=== PATIENT | male | born 1930 | race Caucasian/White ===

== ENCOUNTER → 2016-10-26 | Outpatient (CLI) | payer MEDICARE, BC ==
[2016-10-26 10:20] LABS: ABSOLUTE BASOPHILS # (AUTO) 0.1 10^3/uL (0.0-0.2); ABSOLUTE EOSINOPHILS # (AUTO) 0.3 10^3/uL (0.0-0.6); ABSOLUTE MONOCYTES (AUTO) 0.5 10^3/uL (0.1-1.4); ABSOLUTE NEUT (AUTO) 3.7 10^3/uL (1.7-8.2); BASOPHILS % (AUTO) 0.9 % (0-2); EOSINOPHILS % (AUTO) 4.7 % (0-6); HEMATOCRIT 38.6 % (37.9-51.0); HEMOGLOBIN 12.2 g/dL (13.5-17.0); LYMPHOCYTES % (AUTO) 17.8 % (13-45); MEAN CORPUSCULAR HEMOGLOBIN 29.8 pg (27.0-33.4); MEAN CORPUSCULAR HGB CONC 31.5 g/dL (32.0-36.0); MEAN CORPUSCULAR VOLUME 95 fl (80-97); RED BLOOD COUNT 4.09 10^6/uL (4.35-5.55); RED CELL DISTRIBUTION WIDTH 15.9 % (11.5-14.0); SEGMENTED NEUTROPHILS % (AUTO) 67.6 % (42-78); WHITE BLOOD COUNT 5.4 10^3/uL (4.0-10.5)
[2016-10-26 10:36] LABS: ALANINE AMINOTRANSFERASE 20 U/L (21-72); ALBUMIN 3.4 g/dL (3.5-5.0); ALKALINE PHOSPHATASE 81 U/L (38-126); ANION GAP 12 (5-19); ASPARTATE AMINO TRANSFERASE 15 U/L (17-59); BILIRUBIN,TOTAL 0.9 mg/dL (0.2-1.3); BLOOD UREA NITROGEN 24 mg/dL (7-20); CALCIUM 8.4 mg/dL (8.4-10.2); CARBON DIOXIDE 28 mmol/L (22-30); CHLORIDE 104 mmol/L (98-107); CHOLESTEROL 148.71 mg/dL (0-200); Direct HDL 61 mg/dL (>40); GLUCOSE 102 mg/dL (75-110); POTASSIUM 3.8 mmol/L (3.6-5.0); SODIUM 143.6 mmol/L (137-145); TOTAL PROTEIN 5.7 g/dL (6.3-8.2); TRIGLYCERIDES 45 mg/dL (<150)
[2016-10-26 10:47] LABS: DIRECT LDL 73 mg/dL (<100)
== END ==
LOC: LAB 09:47
PROVIDERS: ATTEND Internal Medicine
DX: E11.9 Type 2 diabetes mellitus without complications (principal); I25.10 Atherosclerotic heart disease of native coronary artery without angina pectoris; R53.83 Other fatigue; I63.9 Cerebral infarction, unspecified; E78.5 Hyperlipidemia, unspecified; I48.91 Unspecified atrial fibrillation
CPT/HCPCS: 36415; 80053; 80061; 83036; 84443; 85025

== ENCOUNTER 2017-11-06 19:53 | Inpatient (IN) | payer MEDICARE, BC ==
[2017-11-06] MEDS ORDERED: ASPIRIN 325 MG TABLET PO ONE (19:58)
[2017-11-06] MEDS ORDERED: FUROSEMIDE INJ/PF 40 MG/4 ML SDV IV ONE (19:58)
--- NOTE | 2017-11-06 20:00 | ER Document Report ---
ED General - General Chief Complaint: Shortness Of Breath Stated Complaint: BREATHING DIFFICULTY Time Seen by Provider: 11/06/17 19:58 Notes: 87-year-old male with CHF presents with acute shortness of breath, this happened about an hour ago, EMS found him hypertensive with rales and hypoxic to 80 on his home oxygen of 2 L. No increased leg edema no chest pain no recent illness cough or fever. Brought in by EMS on CPAP. History by . TRAVEL OUTSIDE OF THE [place] IN LAST 30 DAYS: No - Related Data Allergies/Adverse Reactions: cortisone [Cortisone] Allergy (Mild, Verified 10/14/15 07:57) sugar and B/P were elevated Past Medical History - General Information source: Relative - Social History Smoking Status: Unknown if Ever Smoked Family History: Reviewed & Not Pertinent - Past Medical History Cardiac Medical History: Reports: Hx Atrial Fibrillation, Hx Congestive Heart Failure, Hx Coronary Artery Disease, Hx Hypercholesterolemia, Hx Hypertension Pulmonary Medical History: Reports: Hx COPD, Hx Pneumonia Denies: Hx Tuberculosis Neurological Medical History: Reports: Hx Cerebrovascular Accident - weaker right side Endocrine Medical History: Reports: Hx Diabetes Mellitus Type 2 Musculoskeltal Medical History: Reports Hx Arthritis - osteoporosis Past Surgical History: Reports: Hx Appendectomy, Hx Genitourinary Surgery - prostate surgery, Hx Orthopedic Surgery - Back, right knee, Hx Urinary Tract Surgery - bladder stimulator-interstim - Immunizations Hx Diphtheria, Pertussis, Tetanus Vaccination: - unknown Hx Pneumococcal Vaccination: 01/29/14 Review of Systems - Review of Systems Notes: REVIEW OF SYSTEMS Obtain secondary to patient acuity PHYSICAL EXAMINATION General: Cute distress Head: Atraumatic, normocephalic ENT: Mouth normal, oropharynx moist, no exudates or tonsillar enlargement Eyes: Conjunctiva normal, pupils equal, lids normal Neck: No JVD, supple, no guarding. Positive JVD. CVS: Normal rate, regular rhythm, no murmurs. Nitroglycerin patch in place per EMS. Resp: Respiratory distress tachypnea bilateral rales to the mid bruno GI: Nondistended, soft, no tenderness to palpation, no rebound or guarding Ext: No deformities, no edema, normal range of motion in upper and lower ext Back: No CVA or midline TTP Skin: No rash, warm Lymphatic: No lymphadeopathy noted Neuro: Awake, alert. Face symmetric. GCS 15. -: Yes ROS unobtainable due to patient's medical condition Physical Exam - Vital signs Vitals: Resp Pulse Ox 26 H 96 11/06/17 20:02 11/06/17 20:02 Course - Re-evaluation Re-evalutation: 11/06/17 20:00 Acute shortness of breath with history of CHF and COPD on oxygen. Current presentation seems more like CHF. Nitroglycerin and BiPAP are helping so we will continue these, give aspirin and empiric Lasix, check BNP troponin EKG and chest x-ray. - Vital Signs Vital signs: Temp Pulse Resp BP Pulse Ox 98.5 F 22 H 135/62 H 100 11/06/17 20:11 11/06/17 21:01 11/06/17 21:01 11/06/17 21:01 - Laboratory Result Diagrams: 11/06/17 20:04 11/06/17 20:04 Laboratory results interpreted by me: 11/06/17 11/06/17 11/06/17 20:04 20:04 20:04 WBC 11.0 H RBC 4.22 L Hgb 13.3 L RDW 15.7 H BUN 23 H Creatinine 1.27 H Est GFR (Non-Af Amer) 54 L Glucose 184 H NT-Pro-B Natriuret Pep 5850 H - EKG Interpretation by Me Rate: Normal Rhythm: A.Fib, PVC's - A. fib left bundle new PVC [place]/QRS: LBBB When compared to previous EKG there are: Changes noted Critical Care Note - Critical Care Note Total time excluding time spent on procedures (mins): 32 Comments: The above patient is critically ill. Not including procedures, but including direct re-evaluations, speaking with patient and/or consultants, interpreting results, and documenting, I spent the total amount of minute listed listed above on critical care time Discharge - Discharge Clinical Impression: Acute pulmonary edema Condition: Critical Disposition: ADMITTED INPATIENT Admitting Provider: Hospitalist Unit Admitted: IMCU Referrals: RAMANDEEP RAMSEY MD [Primary Care Provider] - Follow up as needed
[2017-11-06 20:26] LABS: ABSOLUTE BASOPHILS # (AUTO) 0.1 10^3/uL (0.0-0.2); ABSOLUTE EOSINOPHILS # (AUTO) 0.4 10^3/uL (0.0-0.6); ABSOLUTE LYMPHOCYTES (AUTO) 2.3 10^3/uL (0.5-4.7); ABSOLUTE MONOCYTES (AUTO) 0.6 10^3/uL (0.1-1.4); ABSOLUTE NEUT (AUTO) 7.5 10^3/uL (1.7-8.2); BASOPHILS % (AUTO) 0.6 % (0-2); EOSINOPHILS % (AUTO) 4.1 % (0-6); HEMATOCRIT 40.3 % (37.9-51.0); HEMOGLOBIN 13.3 g/dL (13.5-17.0); LYMPHOCYTES % (AUTO) 21.2 % (13-45); MEAN CORPUSCULAR HEMOGLOBIN 31.6 pg (27.0-33.4); MEAN CORPUSCULAR VOLUME 96 fl (80-97); MONOCYTES % (AUTO) 5.8 % (3-13); PLATELET COUNT 168 10^3/uL (150-450); RED BLOOD COUNT 4.22 10^6/uL (4.35-5.55); RED CELL DISTRIBUTION WIDTH 15.7 % (11.5-14.0); SEGMENTED NEUTROPHILS % (AUTO) 68.3 % (42-78); TOTAL CELLS COUNTED % (AUTO) 100 %
--- NOTE | 2017-11-06 20:26 | RADIOLOGY REPORT (SQ) ---
EXAM DESCRIPTION: CHEST SINGLE VIEW COMPLETED DATE/TIME: 11/06/2017 8:17 pm REASON FOR STUDY: sob COMPARISON: 08/28/2016 NUMBER OF VIEWS: One view. TECHNIQUE: Single frontal radiographic view of the chest acquired. LIMITATIONS: None. FINDINGS: LUNGS AND PLEURA: Bibasilar opacities. Perihilar opacities. Possible effusions. MEDIASTINUM AND HILAR STRUCTURES: No masses or contour abnormality. HEART AND VASCULATURE: Cardiac enlargement. Vascular congestion. BONES: No acute findings. HARDWARE: None in the chest. OTHER: No other significant finding. IMPRESSION: CARDIAC ENLARGEMENT. VASCULAR CONGESTION. Basilar opacities and small effusions. TECHNICAL DOCUMENTATION: JOB ID: [id number] [employer]- All Rights Reserved
[2017-11-06 20:51] LABS: ANION GAP 12 (5-19); BLOOD UREA NITROGEN 23 mg/dL (7-20); CALCIUM 9.1 mg/dL (8.4-10.2); CARBON DIOXIDE 27 mmol/L (22-30); CHLORIDE 102 mmol/L (98-107); GLUCOSE 184 mg/dL (75-110); SODIUM 140.6 mmol/L (137-145)
[2017-11-06 21:02] LABS: NT PRO BNP 5850 pg/mL (<450)
[2017-11-06 21:04] LABS: TROPONIN I < 0.012 ng/mL
--- NOTE | 2017-11-06 22:41 | EKG REPORT ---
SEVERITY:- ABNORMAL ECG - ATRIAL FIBRILLATION, V-RATE 69-97 MULTIFORM VENTRICULAR PREMATURE COMPLEXES LEFT BUNDLE BRANCH BLOCK : Confirmed by: Pam Espinoza 06-Nov-2017 22:40:34
[2017-11-07 05:02] LABS: ABSOLUTE EOSINOPHILS # (AUTO) 0.1 10^3/uL (0.0-0.6); ABSOLUTE LYMPHOCYTES (AUTO) 1.1 10^3/uL (0.5-4.7); ABSOLUTE MONOCYTES (AUTO) 0.9 10^3/uL (0.1-1.4); ABSOLUTE NEUT (AUTO) 5.1 10^3/uL (1.7-8.2); BASOPHILS % (AUTO) 0.7 % (0-2); EOSINOPHILS % (AUTO) 1.9 % (0-6); HEMATOCRIT 34.9 % (37.9-51.0); LYMPHOCYTES % (AUTO) 15.6 % (13-45); MEAN CORPUSCULAR HEMOGLOBIN 32.5 pg (27.0-33.4); MEAN CORPUSCULAR HGB CONC 34.4 g/dL (32.0-36.0); MEAN CORPUSCULAR VOLUME 94 fl (80-97); MONOCYTES % (AUTO) 12.1 % (3-13); PLATELET COUNT 136 10^3/uL (150-450); RED CELL DISTRIBUTION WIDTH 15.5 % (11.5-14.0); SEGMENTED NEUTROPHILS % (AUTO) 69.7 % (42-78); TOTAL CELLS COUNTED % (AUTO) 100 %; WHITE BLOOD COUNT 7.3 10^3/uL (4.0-10.5)
[2017-11-07 05:12] LABS: ANION GAP 7 (5-19); BLOOD UREA NITROGEN 20 mg/dL (7-20); CALCIUM 7.8 mg/dL (8.4-10.2); CARBON DIOXIDE 32 mmol/L (22-30); CHLORIDE 103 mmol/L (98-107); GLUCOSE 84 mg/dL (75-110); MAGNESIUM 1.9 mg/dL (1.6-2.3); POTASSIUM 3.6 mmol/L (3.6-5.0); SODIUM 142.1 mmol/L (137-145)
[2017-11-07] MEDS ORDERED: GLUCAGON,HUMAN RECOMB 1 MG INJ IM PRN (05:52)
[2017-11-07] MEDS ORDERED: DEXTROSE 40% GEL 15 GM TUBE PO PRN ×2 (05:52)
[2017-11-07] MEDS ORDERED: DEXTROSE 50%-WATER 25 GM/50 ML DISP.SYRIN IV PRN ×2 (05:52)
[2017-11-07] MEDS ORDERED: INSULIN LISPRO 100 UNIT/ML 3 ML VIAL SUBCUT PRN (05:52)
--- NOTE | 2017-11-07 05:54 | PDOC H&P ---
History of Present Illness Admission Date/PCP: 11/06/17 22:03 RAMANDEEP RAMSEY, Patient complains of: Shortness of breath History of Present Illness: STACIA ANNE is a 87 year old male with a history of acute on chronic congestive heart failure, atrial fibrillation, atrial flutter, coronary artery disease, CKD, dementia, diabetes, history of CVA, hypoxic respiratory failure on 2 L of oxygen at home who presented with a complaint of shortness of breath. Patient was doing well until about dinnertime today when he started complaining to his that he was short of breath. As a 3 months ago patient is only required use his oxygen which is 2 L overnight and as needed for shortness of breath. His checked his oxygen saturation and he was satting at 83%. She places oxygen on and still patient felt as if he could not catch his breath. Patient sat at the dinner table and attempted to eat and started panting. The did not know what else to do other than to call EMS. When EMS came they found that his blood pressure is elevated at 160 with basilar rales. ED chest x-ray showed cardiac enlargement. Vascular congestion and basilar opacities and small effusions. Patient was given 40 of IV Lasix. The patient was brought in by EMS on BiPAP. Patient BNP was found to be elevated at 5850. Hospitalist was called to admit patient for hypoxic respiratory failure and CHF exacerbation. Past Medical History Cardiac Medical History: Reports: Atrial Fibrillation, Congestive Heart Failure , Coronary Artery Disease, Hyperlipidema, Hypertension Pulmonary Medical History: Reports: Chronic Obstructive Pulmonary Disease (COPD) , Pneumonia Denies: Tuberculosis Endocrine Medical History: Reports: Diabetes Mellitus Type 2 Musculoskeltal Medical History: Reports: Arthritis - osteoporosis Hematology: Denies: Anemia Past Surgical History Past Surgical History: Reports: Appendectomy, Orthopedic Surgery - Back, right knee Social History Smoking Status: Former Smoker Frequency of Alcohol Use: None Hx Recreational Drug Use: No Drugs: None Hx Prescription Drug Abuse: No - Advance Directive Resuscitation Status: Full Code Family History Family History: Hypertension Parental Family History Reviewed: No Children Family History Reviewed: No Sibling(s) Family History Reviewed.: No Medication/Allergy Home Medications: Alendronate Sodium 35 mg PO Q7D 12/09/15 Atorvastatin Calcium [Lipitor 20 mg Tablet] 20 mg PO DAILY 12/09/15 Calcium Citrate/Vitamin D3 [Calcium Citrate - Vit D3 Tab] 1 tab PO DAILY Dextran 70/Hypromellose [Artificial Tears] 1 each OP DAILY 12/09/15 Diltiazem HCl [Cardizem Cd] 240 mg PO DAILY 12/09/15 Furosemide [Lasix 40 mg Tablet] 40 mg PO BID 12/09/15 Insulin Aspart [Novolog Flexpen] See Protocol SUBCUT TID 12/09/15 Lisinopril 5 mg PO BID 12/09/15 Metoprolol Succinate 12.5 mg PO BID 12/09/15 Mirabegron [Myrbetriq] 25 mg PO DAILY 12/09/15 Multivitamin [Multivitamins] 1 each PO DAILY 12/09/15 Nitroglycerin [Nitro-Dur] 0.2 mg TD DAILY 12/09/15 Potassium Chloride 10 meq PO BID 12/09/15 Allergies/Adverse Reactions: cortisone [Cortisone] Allergy (Mild, Verified 10/14/15 07:57) sugar and B/P were elevated Review of Systems ROS unobtainable: Due to mental status - Patient with dementia Constitutional: ABSENT: chills, fever(s), headache(s), weight gain, weight loss Eyes: ABSENT: visual disturbances Ears: ABSENT: hearing changes Cardiovascular: ABSENT: chest pain, dyspnea on exertion, edema, orthropnea, palpitations Respiratory: ABSENT: cough, hemoptysis Gastrointestinal: ABSENT: abdominal pain, constipation, diarrhea, hematemesis, hematochezia, nausea, vomiting Genitourinary: ABSENT: dysuria, hematuria Musculoskeletal: ABSENT: joint swelling Integumentary: ABSENT: rash, wounds Neurological: ABSENT: abnormal gait, abnormal speech, confusion, dizziness, focal weakness, syncope Psychiatric: ABSENT: anxiety, depression, homidical ideation, suicidal ideation Endocrine: ABSENT: cold intolerance, heat intolerance, polydipsia, polyuria Hematologic/Lymphatic: ABSENT: easy bleeding, easy bruising Physical Exam Vital Signs: Temp Pulse Resp BP Pulse Ox 98.5 F 18 133/65 H 98 11/06/17 20:11 11/06/17 22:31 11/06/17 22:31 11/06/17 22:31 General appearance: PRESENT: no acute distress, well-developed, well-nourished Head exam: PRESENT: normocephalic Eye exam: PRESENT: EOMI. ABSENT: scleral icterus Ear exam: PRESENT: normal external ear exam Mouth exam: PRESENT: moist Neck exam: ABSENT: carotid bruit, JVD, lymphadenopathy, thyromegaly Respiratory exam: PRESENT: clear to auscultation nick, decreased breath sounds, other - BiPAP mask in place. ABSENT: rales, rhonchi, wheezes Cardiovascular exam: PRESENT: RRR. ABSENT: diastolic murmur, rubs, systolic murmur Pulses: PRESENT: normal dorsalis pedis pul Vascular exam: PRESENT: normal capillary refill GI/Abdominal exam: PRESENT: normal bowel sounds, soft. ABSENT: distended, guarding, mass, organolmegaly, rebound, tenderness Rectal exam: PRESENT: deferred Extremities exam: PRESENT: full ROM. ABSENT: calf tenderness, clubbing, pedal edema Neurological exam: PRESENT: alert, awake, oriented to person, oriented to time, CN II-XII grossly intact. ABSENT: motor sensory deficit Psychiatric exam: PRESENT: appropriate affect, normal mood. ABSENT: homicidal ideation, suicidal ideation Skin exam: PRESENT: dry, intact, warm. ABSENT: cyanosis, rash Results Laboratory Results: 11/06/17 11/06/17 11/06/17 20:04 20:04 20:04 WBC 11.0 H RBC 4.22 L Hgb 13.3 L Hct 40.3 MCV 96 MCH 31.6 MCHC 33.0 RDW 15.7 H Plt Count 168 Seg Neutrophils % 68.3 Lymphocytes % 21.2 Monocytes % 5.8 Eosinophils % 4.1 Basophils % 0.6 Absolute Neutrophils 7.5 Absolute Lymphocytes 2.3 Absolute Monocytes 0.6 Absolute Eosinophils 0.4 Absolute Basophils 0.1 Sodium 140.6 Potassium 4.0 Chloride 102 Carbon Dioxide 27 Anion Gap 12 BUN 23 H Creatinine 1.27 H Est GFR ( Amer) > 60 Est GFR (Non-Af Amer) 54 L Glucose 184 H Calcium 9.1 Troponin I < 0.012 NT-Pro-B Natriuret Pep 5850 H Impressions: Chest X-Ray 11/06/17 19:58 IMPRESSION: CARDIAC ENLARGEMENT. VASCULAR CONGESTION. Basilar opacities and small effusions. Assessment & Plan - Diagnosis (1) Acute pulmonary edema Is this a current diagnosis for this admission?: Yes Plan: Patient with sudden shortness of breath due to flash pulmonary edema secondary to hypertension. When EMS arrived patient systolic blood pressures was in the 160s. Patient was placed on BiPAP and given Lasix. Will continue patient on Lasix at 20 mg IV push q. 8. Metolazone. Will order cardiac echo. (2) Hypertensive emergency Is this a current diagnosis for this admission?: Yes Plan: Patient with hypertensive emergency with systolic blood pressure 160 resulting in flash pulmonary edema. Patient placed on Nitropaste and given lasix IV 40mg and BiPAP. Patient blood pressures have trended down. Will resume his home medications. (3) Acute renal failure Is this a current diagnosis for this admission?: Yes Plan: Patient with acute renal failure. Patient with a creatinine of 1.27. This could be secondary to his CHF exacerbation. We will diurese and repeat BMP. (4) Acute and chronic respiratory failure with hypoxia Is this a current diagnosis for this admission?: Yes Plan: With acute on chronic hypoxic respiratory failure secondary to flash pulmonary edema and CHF exacerbation. Patient currently on BiPAP. Patient was satting in the 80s at home. We will continue to monitor and wean patient off BiPAP as tolerated and placed back on supplemental oxygen. Patient normally wears 2 L oxygen at home. 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 Duran. (5) CHF (congestive heart failure) Qualifiers: Congestive heart failure type: unspecified congestive heart failure type Congestive heart failure chronicity: acute on chronic Qualified Code(s): I50.9 - Heart failure, unspecified Is this a current diagnosis for this admission?: Yes Plan: With acute on chronic congestive heart failure. Uncertain if this is systolic or diastolic. Will repeat cardiac echo. Continue patient on beta-joya and diuretics. Patient has no COLLINS on his monitor. Patient appears to be borderline hypotensive at times which may explain why he is not on COLLINS. (6) Diabetes mellitus Qualifiers: Diabetes mellitus type: type 2 Is this a current diagnosis for this admission?: Yes Plan: Type 2 diabetes. Patient started on sliding scale insulin. - Time Time Spent: 30 to 50 Minutes Anticipated discharge: Home with Homehealth Within: within 72 hours - Inpatient Certification Medical Necessity: Significant Comorbidiites Make Outpatient Treatment Too Risky , Need Close Monitoring Due to Risk of Patient Decompensation
[2017-11-07] MEDS ORDERED: FUROSEMIDE INJ/PF 20 MG/2 ML SDV IV SCH (06:00)
--- NOTE | 2017-11-07 07:17 | RADIOLOGY REPORT (SQ) ---
EXAM DESCRIPTION: CHEST SINGLE VIEW CLINICAL HISTORY: pulmonary edema COMPARISON: 11/06/2017 FINDINGS: Single frontal view of the chest. At the scar calcification of the thoracic aorta. Cardiomegaly. Low lung volumes. Leads overlie the chest. No pneumothorax. Bibasilar opacities. Possible small bilateral pleural effusions. No new osseous abnormalities. Upper abdominal soft tissues are unremarkable. IMPRESSION: 1. Stable appearance of the chest.
[2017-11-07] MEDS: METOPROLOL SUCCINATE 25 MG TAB.SR.24H PO SCH ×2 (09:31→17:48)
[2017-11-07] MEDS: POTASSIUM CHLORIDE 10 MEQ TABLET.SA PO SCH ×2 (09:32→17:47)
[2017-11-07] MEDS: ATORVASTATIN CALCIUM 20 MG TABLET PO SCH (09:32)
[2017-11-07] MEDS ORDERED: (PENDING PHARMACY ID) (Dextran 70/Hypromellose [Artificial Tears] 1 EACH) OP SCH (10:00)
[2017-11-07] MEDS ORDERED: (PENDING PHARMACY ID) (Mirabegron [Myrbetriq] 25 MG) PO SCH (10:00)
[2017-11-07] MEDS ORDERED: DILTIAZEM HCL 240 MG CAPSULE.CR PO SCH (10:00)
[2017-11-07] MEDS: METOLAZONE 2.5 MG TABLET PO SCH (11:35)
--- NOTE | 2017-11-07 14:57 | Physician Advisory Note ---
Physician Advisor ProgressNote .: Pursuant to the plan for [facility], I have reviewed the medical record for this patient. Physician Advisor Statement: Very nice documentation of Acute pulmonary edema, hypertensive emergency, acute on chronic hypoxemic respiratory failure (needing O2 2L at night at baseline, labored breathing in triage documented by nursing), acute on chronic CHF (not yet clear whether syst or diast 0 2012 ECHO showed nl EF, diastolic LV fn not assessed). Please clarify what is pt's baseline Cr, & whether ARF/ANNELISE dx is ruled out or ruled in. CK
[2017-11-07] MEDS: FUROSEMIDE INJ/PF 20 MG/2 ML SDV IV SCH (17:49)
--- NOTE | 2017-11-07 17:54 | PDOC PROGRESS REPORT ---
Subjective Progress Note for:: 11/07/17 Subjective:: pt feels better, is breathing more easily, no fever or chills, no abd pain or n/ v. states he is getting closer to his norm. Remainer of ROS perfromed and is negative. Including no CP. I reviewed his labs and diagnositcs today. Reason For Visit: HYPERTENSIVE EMERGENCY, PULMONARY EDEMA, ACUTE Physical Exam Vital Signs: Temp Pulse Resp BP Pulse Ox 97.4 F 14 130/67 H 98 11/07/17 01:33 11/07/17 07:01 11/07/17 15:43 11/07/17 07:01 Intake & Output 11/06/17 11/07/17 11/08/17 06:59 06:59 06:59 Output Total 225 675 Balance -225 -675 Weight 55.6 kg General appearance: PRESENT: no acute distress, cooperative Head exam: PRESENT: atraumatic, normocephalic Eye exam: PRESENT: conjunctiva pink Ear exam: PRESENT: normal external ear exam Mouth exam: PRESENT: dry mucosa Neck exam: ABSENT: lymphadenopathy Respiratory exam: PRESENT: decreased breath sounds, rales. ABSENT: tachypnea, wheezes Cardiovascular exam: PRESENT: RRR GI/Abdominal exam: PRESENT: normal bowel sounds, soft. ABSENT: distended, tenderness Rectal exam: PRESENT: deferred Neurological exam: PRESENT: alert, awake, oriented to person, oriented to place , oriented to situation, other - slurred speech which is baseline after a stroke , he can ambulate very minimally at home with a walker. Psychiatric exam: ABSENT: agitated, anxious Skin exam: PRESENT: dry, intact, warm Results Laboratory Results: 11/07/17 04:45 11/07/17 04:45 11/07/17 11/07/17 04:45 04:45 WBC 7.3 RBC 3.70 L Hgb 12.0 L Hct 34.9 L MCV 94 MCH 32.5 MCHC 34.4 RDW 15.5 H Plt Count 136 L Seg Neutrophils % 69.7 Lymphocytes % 15.6 Monocytes % 12.1 Eosinophils % 1.9 Basophils % 0.7 Absolute Neutrophils 5.1 Absolute Lymphocytes 1.1 Absolute Monocytes 0.9 Absolute Eosinophils 0.1 Absolute Basophils 0.0 Sodium 142.1 Potassium 3.6 Chloride 103 Carbon Dioxide 32 H Anion Gap 7 BUN 20 Creatinine 1.06 Est GFR ( Amer) > 60 Est GFR (Non-Af Amer) > 60 Glucose 84 Calcium 7.8 L Magnesium 1.9 Impressions: Chest X-Ray 11/07/17 06:00 IMPRESSION: 1. Stable appearance of the chest. Assessment & Plan - Diagnosis (1) Acute and chronic respiratory failure with hypoxia Is this a current diagnosis for this admission?: Yes Plan: Due to pulmonary edema and he is being diursed. I am unclear as to whether the pulm edema caused the HTN or vice versa. states an aide at home takes BP daily and is has been normal. This may be pulm edema due to CHF exacerbation or other as of yet undetermined process. Will cont with O2 and diuresis and cont to investigate. (2) Acute pulmonary edema Is this a current diagnosis for this admission?: Yes Plan: resolving, cont lasix and follow electrolytes (3) Acute renal failure Is this a current diagnosis for this admission?: Yes Plan: per chart review this is an ANNELISE, will cont to monitor renal function as we are diuresing, UA ordered to furthur eval etiology (4) Hypertensive emergency Is this a current diagnosis for this admission?: Yes Plan: Improved, cont diuresis, current meds and monitor BP (5) CHF (congestive heart failure) Qualifiers: Congestive heart failure type: unspecified congestive heart failure type Congestive heart failure chronicity: acute on chronic Qualified Code(s): I50.9 - Heart failure, unspecified Is this a current diagnosis for this admission?: Yes (6) CKD (chronic kidney disease), stage III Plan: work to get back to baseline, likely due to HTN and diabetes (7) Oropharyngeal dysphagia Plan: post stroke, modified diet (8) Diabetes mellitus Qualifiers: Diabetes mellitus type: type 2 Is this a current diagnosis for this admission?: Yes Plan: cont current care - Time Time Spent with patient: 25-34 minutes Anticipated discharge: Home - Inpatient Certification Based on my medical assessment, after consideration of the patient's comorbidities, presenting symptoms, or acuity I expect that the services needed warrant INPATIENT care.: Yes I certify that my determination is in accordance with my understanding of Medicare's requirements for reasonable and necessary INPATIENT services [42 CFR 412.3e].: Yes Medical Necessity: Significant Comorbidiites Make Outpatient Treatment Too Risky , Need Close Monitoring Due to Risk of Patient Decompensation, Need For Continuous Telemetry Monitoring, Risk of Complication if Not Cared For in Hospital
[2017-11-07] MEDS ORDERED: LISINOPRIL 10 MG TABLET PO ONE (19:00)
[2017-11-08] MEDS: FUROSEMIDE INJ/PF 20 MG/2 ML SDV IV SCH (05:03)
[2017-11-08 06:09] LABS: ABSOLUTE BASOPHILS # (AUTO) 0.1 10^3/uL (0.0-0.2); ABSOLUTE EOSINOPHILS # (AUTO) 0.3 10^3/uL (0.0-0.6); ABSOLUTE LYMPHOCYTES (AUTO) 1.4 10^3/uL (0.5-4.7); ABSOLUTE MONOCYTES (AUTO) 0.9 10^3/uL (0.1-1.4); ABSOLUTE NEUT (AUTO) 5.7 10^3/uL (1.7-8.2); BASOPHILS % (AUTO) 0.7 % (0-2); EOSINOPHILS % (AUTO) 3.3 % (0-6); HEMATOCRIT 39.3 % (37.9-51.0); HEMOGLOBIN 13.3 g/dL (13.5-17.0); LYMPHOCYTES % (AUTO) 17.1 % (13-45); MEAN CORPUSCULAR HEMOGLOBIN 31.8 pg (27.0-33.4); MEAN CORPUSCULAR HGB CONC 33.8 g/dL (32.0-36.0); MEAN CORPUSCULAR VOLUME 94 fl (80-97); MONOCYTES % (AUTO) 10.6 % (3-13); PLATELET COUNT 158 10^3/uL (150-450); RED BLOOD COUNT 4.18 10^6/uL (4.35-5.55); RED CELL DISTRIBUTION WIDTH 15.7 % (11.5-14.0); SEGMENTED NEUTROPHILS % (AUTO) 68.3 % (42-78); TOTAL CELLS COUNTED % (AUTO) 100 %; WHITE BLOOD COUNT 8.3 10^3/uL (4.0-10.5)
[2017-11-08 06:31] LABS: ANION GAP 9 (5-19); BLOOD UREA NITROGEN 23 mg/dL (7-20); CALCIUM 9.3 mg/dL (8.4-10.2); CARBON DIOXIDE 31 mmol/L (22-30); CHLORIDE 98 mmol/L (98-107); GLUCOSE 108 mg/dL (75-110); MAGNESIUM 1.9 mg/dL (1.6-2.3); POTASSIUM 3.5 mmol/L (3.6-5.0); SODIUM 137.9 mmol/L (137-145)
[2017-11-08 07:02] LABS: APPEARANCE,URINE CLEAR; BILIRUBIN,URINE NEGATIVE (NEGATIVE); COLOR,URINE COLORLESS; GLUCOSE, URINE NEGATIVE (NEGATIVE); KETONES,URINE NEGATIVE (NEGATIVE); LEUKOCYTE ESTERASE,URINE NEGATIVE (NEGATIVE); NITRITE,URINE NEGATIVE (NEGATIVE); PROTEIN,URINE NEGATIVE (NEGATIVE); URINE SPECIFIC GRAVITY 1.004; UROBILINOGEN,URINE NEGATIVE mg/dL (<2.0)
[2017-11-08] MEDS: METOPROLOL SUCCINATE 25 MG TAB.SR.24H PO SCH ×2 (09:46→17:32)
[2017-11-08] MEDS: POTASSIUM CHLORIDE 10 MEQ TABLET.SA PO SCH ×2 (09:46→17:32)
[2017-11-08] MEDS: ATORVASTATIN CALCIUM 20 MG TABLET PO SCH (09:47)
[2017-11-08] MEDS: METOLAZONE 2.5 MG TABLET PO SCH (09:47)
[2017-11-08] MEDS: LISINOPRIL 10 MG TABLET PO SCH (09:47)
[2017-11-08] MEDS ORDERED: (PENDING PHARMACY ID) (Diltiazem Hcl [Cartia Xt] 240 MG) PO SCH (17:15)
--- NOTE | 2017-11-08 17:23 | PDOC PROGRESS REPORT ---
Subjective Progress Note for:: 11/08/17 Subjective:: 87-year-old gentleman who presented to the hospital with hypertensive emergency and acute pulmonary edema and has been diuresed with Lasix. He is feeling better today. Reason For Visit: HYPERTENSIVE EMERGENCY, PULMONARY EDEMA, ACUTE Physical Exam Vital Signs: Temp Pulse Resp BP Pulse Ox 97.9 F 86 20 121/63 99 11/08/17 11:59 11/08/17 14:00 11/08/17 11:59 11/08/17 11:59 11/08/17 11:59 Intake & Output 11/07/17 11/08/17 11/09/17 06:59 06:59 06:59 Intake Total 440 354 Output Total 225 1077 119 Balance -489 -1276 -075 Weight 54.3 kg Additional comments: Elderly gentleman sitting up in bed eating breakfast not in acute distress Lungs: Decreased breath sounds bilateral bases no wheezing or crackles heard normal respiratory effort Cardiac:Regular rate rhythm no calf tenderness no pedal edema Abdomen: Soft, no focal tenderness, normal bowel sounds Skin: Warm and dry Results Laboratory Results: 11/08/17 05:37 11/08/17 05:37 11/08/17 11/08/17 11/08/17 05:37 05:37 06:33 WBC 8.3 RBC 4.18 L Hgb 13.3 L Hct 39.3 MCV 94 MCH 31.8 MCHC 33.8 RDW 15.7 H Plt Count 158 Seg Neutrophils % 68.3 Lymphocytes % 17.1 Monocytes % 10.6 Eosinophils % 3.3 Basophils % 0.7 Absolute Neutrophils 5.7 Absolute Lymphocytes 1.4 Absolute Monocytes 0.9 Absolute Eosinophils 0.3 Absolute Basophils 0.1 Sodium 137.9 Potassium 3.5 L Chloride 98 Carbon Dioxide 31 H Anion Gap 9 BUN 23 H Creatinine 1.00 Est GFR ( Amer) > 60 Est GFR (Non-Af Amer) > 60 Glucose 108 Calcium 9.3 Magnesium 1.9 Urine Color COLORLESS Urine Appearance CLEAR Urine pH 7.0 Ur Specific [place] 1.004 Urine Protein NEGATIVE Urine Glucose (UA) NEGATIVE Urine Ketones NEGATIVE Urine Blood MODERATE H Urine Nitrite NEGATIVE Ur Leukocyte Esterase NEGATIVE Urine WBC (Auto) 1 Urine RBC (Auto) 9 Impressions: Chest X-Ray 11/07/17 06:00 IMPRESSION: 1. Stable appearance of the chest. Assessment & Plan - Diagnosis (1) Acute and chronic respiratory failure with hypoxia Is this a current diagnosis for this admission?: Yes (2) Acute pulmonary edema Is this a current diagnosis for this admission?: Yes (3) Hypertensive emergency Is this a current diagnosis for this admission?: Yes Plan: Improved. (4) CHF (congestive heart failure) Qualifiers: Congestive heart failure type: unspecified congestive heart failure type Congestive heart failure chronicity: acute on chronic Qualified Code(s): I50.9 - Heart failure, unspecified Is this a current diagnosis for this admission?: Yes Plan: Improved with diuresis. Echocardiogram pending to specify systolic versus diastolic. - Time Time Spent with patient: 35 or more minutes
[2017-11-08] MEDS ORDERED: POTASSIUM CHLORIDE 10 MEQ TABLET.SA PO ONE (17:30)
[2017-11-08] MEDS ORDERED: (PENDING PHARMACY ID) (Iron Ps Complex/B12/Folic Acid [Poly-Iron 150 Forte Capsule] 1 CAP) PO SCH (18:00)
[2017-11-08] MEDS ORDERED: DILTIAZEM HCL 240 MG CAPSULE.CR PO SCH (18:00)
[2017-11-08] MEDS: IRON POLYSACCHARIDES COMPLEX 150 MG CAPSULE PO SCH (18:27)
[2017-11-09 05:12] LABS: ABSOLUTE EOSINOPHILS # (AUTO) 0.3 10^3/uL (0.0-0.6); ABSOLUTE LYMPHOCYTES (AUTO) 1.3 10^3/uL (0.5-4.7); ABSOLUTE MONOCYTES (AUTO) 1.2 10^3/uL (0.1-1.4); ABSOLUTE NEUT (AUTO) 6.3 10^3/uL (1.7-8.2); BASOPHILS % (AUTO) 0.4 % (0-2); HEMATOCRIT 38.8 % (37.9-51.0); HEMOGLOBIN 13.2 g/dL (13.5-17.0); LYMPHOCYTES % (AUTO) 14.4 % (13-45); MEAN CORPUSCULAR HEMOGLOBIN 32.1 pg (27.0-33.4); MEAN CORPUSCULAR VOLUME 94 fl (80-97); PLATELET COUNT 159 10^3/uL (150-450); RED BLOOD COUNT 4.12 10^6/uL (4.35-5.55); RED CELL DISTRIBUTION WIDTH 15.3 % (11.5-14.0); SEGMENTED NEUTROPHILS % (AUTO) 69.2 % (42-78); TOTAL CELLS COUNTED % (AUTO) 100 %; WHITE BLOOD COUNT 9.1 10^3/uL (4.0-10.5)
[2017-11-09 05:28] LABS: ANION GAP 8 (5-19); BLOOD UREA NITROGEN 25 mg/dL (7-20); CALCIUM 8.9 mg/dL (8.4-10.2); CARBON DIOXIDE 32 mmol/L (22-30); CHLORIDE 96 mmol/L (98-107); GLUCOSE 114 mg/dL (75-110); MAGNESIUM 1.9 mg/dL (1.6-2.3); POTASSIUM 3.9 mmol/L (3.6-5.0); SODIUM 136.4 mmol/L (137-145)
[2017-11-09] MEDS: LANSOPRAZOLE 15 MG TAB.RAP.DR PO SCH (05:53)
[2017-11-09] MEDS: LISINOPRIL 10 MG TABLET PO SCH (11:17)
[2017-11-09] MEDS: IRON POLYSACCHARIDES COMPLEX 150 MG CAPSULE PO SCH ×2 (11:19→18:51)
[2017-11-09] MEDS: POTASSIUM CHLORIDE 10 MEQ TABLET.SA PO SCH ×2 (11:20→18:51)
[2017-11-09] MEDS: FUROSEMIDE 40 MG TABLET PO SCH (11:20)
[2017-11-09] MEDS: METOLAZONE 2.5 MG TABLET PO SCH (11:21)
[2017-11-09] MEDS: METOPROLOL SUCCINATE 25 MG TAB.SR.24H PO SCH ×2 (11:22→18:51)
--- NOTE | 2017-11-09 11:55 | XCELERA REPORT ---
[address] [address] Transthoracic Echocardiogram Report Name: STACIA ANNE Age: 87 yrs Gender: Male : 1930 Patient Status: Inpatient Patient Location: [address] [place] [address] Study Date: 11/09/2017 09:03 AM Height: 67 in Weight: 119 lb BSA: 1.6 m2 Procedure: A complete two-dimensional transthoracic echocardiogram was performed (2D, M-mode, spectral and color flow Doppler). The study was technically difficult with many images being suboptimal in quality. Reason For Study: CHF Ordering Physician: BRIANNA ZABALA Performed By: Gaye Weir Interpretation Summary Left ventricular systolic function is mild to moderately reduced. The Ejection Fraction estimate is 40-45% There is mild concentric left ventricular hypertrophy. The left ventricle is grossly normal size. Doppler measurements suggest pseudonormalized left ventricular relaxation, which is associated with grade II/IV or mild to moderate diastolic dysfunction There is mid to distal anterior wall akinesis There is no mitral valve stenosis. There is a mild to moderate amount of mitral regurgitation There is no aortic valve stenosis There is a mild amount of aortic regurgitation There is a mild amount of tricuspid regurgitation There is mild to moderate pulmonary hypertension by echo Right ventricular systolic pressure is estimated to be elevated at 40- 50mmHg. Minimal pericardial effusion. The study was technically difficult with many images being suboptimal in quality. MMode/2D Measurements & Calculations RVDd: 3.0 cm LVIDd: 4.3 cm FS: 26.1 % Ao root diam: 2.4 cm IVSd: 1.1 cm LVIDs: 3.2 cm EDV(Teich): 81.7 ml LVPWd: 1.1 cm ESV(Teich): 39.7 ml Ao root area: 4.7 cm2 EF(Teich): 51.5 % LA dimension: 4.5 cm Doppler Measurements & Calculations MV E max tiffany: MV P1/2t max tiffany: Ao V2 max: AI max tiffany: 94.3 cm/sec 95.3 cm/sec 112.9 cm/sec 311.3 cm/sec MV A max tiffany: MV P1/2t: 61.5 msec Ao max PG: AI max P.7 cm/sec 5.1 mmHg 38.8 mmHg MV E/A: 4.3 MVA(P1/2t): 3.6 cm2 AI dec slope: MV dec slope: 453.8 cm/sec2 73.7 cm/sec2 AI P1/2t: 1236 msec LV V1 max PG: PA V2 max: TR max tiffany: 1.4 mmHg 82.0 cm/sec 284.0 cm/sec LV V1 max: PA max P.7 mmHg TR max P.2 cm/sec 32.3 mmHg Left Ventricle The left ventricle is grossly normal size. There is mild concentric left ventricular hypertrophy. Left ventricular systolic function is mild to moderately reduced. The Ejection Fraction estimate is 40-45%. Doppler measurements suggest pseudonormalized left ventricular relaxation, which is associated with grade II/IV or mild to moderate diastolic dysfunction. There is mid to distal anterior wall akinesis. Right Ventricle The right ventricle is grossly normal size. There is normal right ventricular wall thickness. The right ventricular systolic function is mildly reduced. Atria The right atrium is mildly dilated. The left atrium is moderately dilated. Interarterial septum not well visualized and not well dopplered. Cannot comment on ASD/PFO presence. Mitral Valve There is mild mitral leaflet calcification. There is mild mitral annular calcification. There is no mitral valve stenosis. There is a mild to moderate amount of mitral regurgitation. Aortic Valve The aortic valve is mildly calcified. There is no aortic valve stenosis. There is a mild amount of aortic regurgitation. Tricuspid Valve The tricuspid valve is not well visualized, but is grossly normal. There is no tricuspid stenosis. There is a mild amount of tricuspid regurgitation. There is mild to moderate pulmonary hypertension by echo. Right ventricular systolic pressure is estimated to be elevated at 40-50mmHg. Pulmonic Valve The pulmonic valve is not well visualized. Great Vessels The aortic root is not well visualized. The inferior vena cava was not well visualized. Effusions Minimal pericardial effusion. : BRIANNA ZABALA > Pam Espinoza
--- NOTE | 2017-11-09 19:44 | PROGRESS NOTE E ---
Progress Note NAME: STACIA ANNE : 1930 AGE: 87Y DATE: 11/09/2017 ROOM: 323 SUBJECTIVE: The patient is currently lying in bed. The patient states that he feels better today, according to the though the patient is weak and is having difficulty making to the bathroom, which is not normal for him. The patient denies any nausea, vomiting, diarrhea. No shortness of breath, dizziness, chest pain. No fevers, chills. The patient has no specific complaint, but the patient's notes weakness and does not voice any other concerns at this time. REVIEW OF SYSTEMS: The rest of the review of systems is negative. MEDICATIONS: Have been reviewed. OBJECTIVE: GENERAL: The patient is an 87-year-old male who is awake, alert. He is oriented to person, time, place, situation. He is verbal, conversational. Does not appear to be in any acute distress. VITAL SIGNS: Temperature is 98.8, pulse 71, respirations 20, blood pressure is 107/59, oxygen saturation is 100% on a liter and a half nasal cannula. SKIN: Warm and dry. No rash. He is not diaphoretic. HEENT: Pupils equal, round and reactive to light and accommodation. Conjunctivae are pink. No evidence of JVP. CARDIOVASCULAR: Heart is regular. There is no murmur or rub. CHEST: Clear, symmetrical, unlabored. ABDOMEN: Soft, nontender, nondistended. BACK: No CVA tenderness, sacral edema. EXTREMITIES: No clubbing, cyanosis, edema. PSYCHIATRIC: Appropriate affect, pleasant mood. LABORATORY DATA: Hematology obtained on 11/09/2017; WBC are 9.1, hemoglobin 13.2, hematocrit is 38.8, platelet count is 159,000. Chemistry obtained on 11/09/2017; sodium is 136, potassium 3.9, chloride 96, carbon dioxide 32, BUN 25, creatinine 1.1, glucose 114, calcium is 8.9, magnesium is 1.9. IMPRESSION AND PLAN: 1. ACUTE ON CHRONIC SYSTOLIC AND DIASTOLIC CONGESTIVE HEART FAILURE. This overall improved with diuresis. The patient's repeat echo is currently pending. Will follow. 2. HYPERTENSIVE EMERGENCY. Have resumed the patient's home blood pressure medications and these do seem reasonable. 3. ACUTE ON CHRONIC HYPOXEMIC RESPIRATORY FAILURE. This was exacerbated by the patient's CHF. 4. CORONARY ARTERY DISEASE. Continue the patient's home medications. CODE STATUS: The patient is do not resuscitate/do not intubate. DISPOSITION: Depending on the patient's symptomatology and diagnostic findings will reevaluate in the a.m. for possible discharge. The patient can be downgraded to a medical unit. TIME SPENT: On this follow up, including assessment and plan, physical examination, patient education, review of records, and family meeting is 25 minutes. DICTATING PHYSICIAN: RAMANDEEP ZAMARRIPA NP [id number] PHY#: [id number] ID: [id number] JOB#: [id number] ACCT: [id number] cc: > MTDD
[2017-11-09] MEDS ORDERED: ATORVASTATIN CALCIUM 20 MG TABLET PO SCH (22:00)
[2017-11-09] MEDS ORDERED: DILTIAZEM HCL 180 MG CAPSULE.CR PO SCH (22:00)
[2017-11-10] MEDS: LANSOPRAZOLE 15 MG TAB.RAP.DR PO SCH (05:43)
--- NOTE | 2017-11-10 10:19 | EKG REPORT ---
SEVERITY:- ABNORMAL ECG - ATRIAL FIBRILLATION, V-RATE 63-95 LEFT BUNDLE BRANCH BLOCK : Confirmed by: Pam Espinoza 10-Nov-2017 10:18:35
[2017-11-10] MEDS: METOPROLOL SUCCINATE 25 MG TAB.SR.24H PO SCH (11:01)
[2017-11-10] MEDS: FUROSEMIDE 40 MG TABLET PO SCH (11:01)
[2017-11-10] MEDS: LISINOPRIL 10 MG TABLET PO SCH (11:02)
[2017-11-10] MEDS: IRON POLYSACCHARIDES COMPLEX 150 MG CAPSULE PO SCH (11:02)
[2017-11-10] MEDS: POTASSIUM CHLORIDE 10 MEQ TABLET.SA PO SCH (11:02)
[2017-11-10 12:48] VITALS: BP 130/67
--- NOTE | 2017-11-11 08:24 | DISCHARGE SUMMARY E ---
Discharge Summary NAME: STACIA ANNE : 1930 AGE: 87Y ADMITTED: 11/06/2017 DISCHARGED: 11/10/2017 CODE STATUS: DO NOT RESUSCITATE/DO NOT INTUBATE. PRIMARY CARE PROVIDER: Teo Ramsey MD DISCHARGE DIAGNOSES: 1. Ynmxg-cn-sgkmpdz systolic and diastolic congestive heart failure. 2. Hypertensive emergency. 3. Pkcdl-ve-qyimqat hypoxemic respiratory failure. 4. Coronary artery disease. 5. Atrial fibrillation/atrial flutter not on chronic anticoagulation. 7. Cerebrovascular disease. 8. Chronic obstructive pulmonary disease with oxygen dependency. 9. Fragility. DISCHARGE MEDICATIONS: 1. Cardizem CD 180 mg p.o. at bedtime, 30 capsules with 0 refill. 2. Potassium chloride 10 mEq p.o. b.i.d. 3. Omeprazole 20 mg p.o. daily. 4. Lopressor 25 mg p.o. daily. 5. Lisinopril 10 mg p.o. daily. 6. Iron supplementation, 1 capsule p.o. b.i.d. 7. Lasix 60 mg p.o. daily. 8. Flonase 1 spray nasally daily. 9. Lipitor 20 mg p.o. at bedtime. 10. Fosamax 35 mg p.o. every 4 weeks. 11. Myrbetriq 25 mg p.o. daily. DIET: Heart healthy. ACTIVITIES: As tolerated. CONDITION: Fair. HISTORY OF PRESENT ILLNESS: The patient is an 87-year-old male with a past medical history of buegh-ak-hpukgyq CHF, atrial fibrillation, and oxygen dependency. The patient presented to the emergency department with the chief complaint of shortness of breath. The patient was doing well until the day of presentation, when he started complaining to his that he was short of breath. About 3 months ago, the patient started using O2 at home for which he just used as needed. The patient's checked his oxygen saturation and found it 83%. She placed the patient on oxygen, but he still felt he could catch his breath. The patient sat at the dinner tablet and attempted to eat and started panting. The did not know what else to do, so she called EMS. Upon EMS arrival, the patient was found to have a blood pressure systolic to be in the 160s and basilar rales. Upon presentation to the ED, the patient's chest x-ray showed cardiac enlargement with vascular congestion and basilar opacities, as well as small effusion. The patient was diuresed with 40 of IV Lasix and the patient was started on BiPAP in the emergency department. The patient's BNP was elevated at 5850 and the patient was referred to the hospitalist for admission and management. HOSPITAL COURSE: The patient was admitted to [facility]. The patient was continued with his diuresis and did have an echocardiogram and did not reveal any acute changes. The patient's blood pressure elevation was suspected to result in flash pulmonary edema. The patient had significant improvement in his symptoms once his blood pressures trended down. Once the patient was resumed on his home medications, he was actually somewhat hypotensive, resulting in systolic blood pressures in the low 100s to 90s and heart rates in the higher 50s. Given this, the patient's Cardizem was decreased slightly with improvement in his rate into the 70s, as well as blood pressure in the one-teens systolically. The patient made significant improvement. The patient has been counseled regarding CHF management, including diet and medication management. The patient does appear to be fairly well managed at home as per his ; however, the patient is quite frail, which most likely has been leading to the patient's multiple admissions for this. Also, given the patient is in chronic AFib, workload and demand also can contribute to this. The patient was ambulating in the hallway, has been up for meals and the patient's is going to resume caring for him at home. They have declined any sort of rehab or home health. LABORATORY VALUES: As follows: Hematology obtained on 11/09/2017, WBC 9.1, hemoglobin 13.2, hematocrit 38.8, platelet count 159,000. Chemistry obtained on 11/09/2017: Sodium 136, potassium 3.9, chloride 96, carbon dioxide 32, BUN 25, creatinine 1.02, glucose 114, calcium 8.9, magnesium 1.9. Troponin 0.012. BNP 5850. Urinalysis obtained on 11/08/2017: Colorless, appears clear; pH 7.0, specific gravity 1.004, protein negative, glucose negative, ketones negative, occult blood moderate, nitrites negative, bilirubin negative, urobilinogen negative, leukocyte esterase negative, WBC 1, RBC 9, bacteria trace, mucus rare, ascorbic acid negative. Chest x-ray obtained on 11/06/2017 revealed cardiac enlargement with vascular congestion, basilar opacities, small effusions. Chest x-ray obtained on 11/07/2017 revealed stable appearance of the chest. EKG obtained on 11/10/2017 revealed atrial fibrillation. Echocardiogram obtained on 11/09/2017 revealed EF of 40-45% with 2/4 mild to moderate diastolic dysfunction with elevated RV pressure and moderate pulmonary hypertension. PHYSICAL EXAMINATION: GENERAL: The patient is a frail, thin 87-year-old male who is awake, alert. He is oriented to person, time, place and situation, does not appear to be distressed. VITAL SIGNS: As follows: Temperature 98.7, pulse 77, respirations 18, blood pressure 109/52, oxygen saturation 97% on room air. SKIN: Warm and dry. No rash. He is not diaphoretic. HEENT: Pupils equal, round and reactive to light and accommodation. Conjunctivae are pink. No evidence of JVP. CARDIOVASCULAR: Heart is irregularly irregular. No rub. CHEST: Clear, symmetrical, unlabored. ABDOMEN: Soft, nontender, nondistended. BACK: No CVA tenderness, sacral edema. EXTREMITIES: No clubbing, cyanosis, edema. PSYCHIATRIC: Appropriate affect, pleasant mood. DISCHARGE PLAN: The patient is advised to follow with primary care provider within 1-2 weeks for hospital followup. During this visit, the patient did have a decreased dose in Cardizem down to 180 mg controlled dose given the patient's hypotension and bradycardia. TIME SPENT: Counseling on this discharge, including assessment, plan, physical examination, patient education, review of records, family meeting was 25 minutes. DICTATING PHYSICIAN: TEO ZAMARRIPA NP [id number] PHY#: [id number] ID: [id number] JOB#: [id number] ACCT: [id number] cc:TEO RAMSEY M.D. TRINO SLAUGHTER M.D. > MTDMirna
== END 2017-11-10 13:37 | disposition home or self-care (01) | DRG 291 ==
LOC: ER 19:53 → EH 22:03 → 3W 11-07 16:32
PROVIDERS: ADMIT Pediatrics; ATTEND Pediatrics
DX: I13.0 Hypertensive heart and chronic kidney disease with heart failure and stage 1 through stage 4 chronic kidney disease, or unspecified chronic kidney disease (principal); J96.21 Acute and chronic respiratory failure with hypoxia; I50.43 Acute on chronic combined systolic (congestive) and diastolic (congestive) heart failure; I16.1 Hypertensive emergency; N17.9 Acute kidney failure, unspecified; N18.3 Chronic kidney disease, stage 3 (moderate); I48.91 Unspecified atrial fibrillation; I25.10 Atherosclerotic heart disease of native coronary artery without angina pectoris; J44.9 Chronic obstructive pulmonary disease, unspecified; E11.22 Type 2 diabetes mellitus with diabetic chronic kidney disease; R13.12 Dysphagia, oropharyngeal phase; Z99.81 Dependence on supplemental oxygen; Z87.891 Personal history of nicotine dependence; Z79.4 Long term (current) use of insulin; Z79.899 Other long term (current) drug therapy
CPT/HCPCS: 36415; 71045; 80048; 81001; 82962; 83735; 83880; 84484; 85025; 93005; 93010; 93306; 96374; 99291; G8978-GP; G8979-GP; J1815; J1940; J3490

== ENCOUNTER 2018-03-04 19:07 | Inpatient (IN) | payer MEDICARE, BC ==
[2018-03-04] MEDS ORDERED: FUROSEMIDE INJ/PF 100 MG/10 ML SDV IV ONE (19:15)
[2018-03-04] MEDS ORDERED: NITROGLYCERIN/D5W 50 MG/250 ML RTUINJ IV PRN (19:16)
--- NOTE | 2018-03-04 19:20 | ER Document Report ---
ED General - General Chief Complaint: Respiratory Distress Stated Complaint: SOB AND CHEST PAIN Time Seen by Provider: 03/04/18 19:11 Cannot obtain history due to: Unstable vital signs Notes: The patient is an 87-year-old male with a past medical history of COPD, CHF, essential hypertension, malnutrition who presents with 1 hour of progressively worsening shortness of breath. The patient is unable to provide history at time of arrival secondary to respiratory distress. EMS reports that the patient and on scene said that his shortness of breath became rapidly worse. He has a history of a similar episode in the past when he developed flash pulmonary edema approximately 4 months ago. He denies any chest pain, focal weakness, numbness, or medication noncompliance. He has not contacted his general doctor regarding today's concerns. He has not noted that anything seems to improve or worsen his symptoms. EMS did give 125 mg of Solu-Medrol in route to the hospital and placed the patient on CPAP. His initial oxygen saturation was initially in the low 80s at the time of their arrival TRAVEL OUTSIDE OF THE [place] IN LAST 30 DAYS: No - Related Data Allergies/Adverse Reactions: cortisone [Cortisone] Allergy (Mild, Verified 10/14/15 07:57) sugar and B/P were elevated Past Medical History - General Information source: Patient, Emergency Med Personnel, [facility] Records - Social History Smoking Status: Never Smoker Frequency of alcohol use: None Drug Abuse: None Lives with: Spouse/Significant other Family History: Hypertension - Past Medical History Cardiac Medical History: Reports: Hx Atrial Fibrillation, Hx Congestive Heart Failure, Hx Coronary Artery Disease, Hx Hypercholesterolemia, Hx Hypertension Pulmonary Medical History: Reports: Hx COPD, Hx Pneumonia Denies: Hx Tuberculosis Neurological Medical History: Reports: Hx Cerebrovascular Accident - weaker right side Endocrine Medical History: Reports: Hx Diabetes Mellitus Type 2 Renal/ Medical History: Denies: Hx Peritoneal Dialysis Musculoskeltal Medical History: Reports Hx Arthritis - osteoporosis Past Surgical History: Reports: Hx Appendectomy, Hx Genitourinary Surgery - prostate surgery, Hx Orthopedic Surgery - Back, right knee, Hx Urinary Tract Surgery - bladder stimulator-interstim - Immunizations Hx Diphtheria, Pertussis, Tetanus Vaccination: - unknown Hx Pneumococcal Vaccination: 01/29/14 Review of Systems - Review of Systems Notes: Constitutional: Negative for fever. Positive for general fatigue HENT: Negative for sore throat. Eyes: Negative for visual changes. Cardiovascular: Negative for chest pain. Respiratory: Positive for shortness of breath. Gastrointestinal: Negative for abdominal pain, vomiting or diarrhea. Genitourinary: Negative for dysuria. Musculoskeletal: Negative for back pain. Skin: Negative for rash. Neurological: Negative for headaches, weakness or numbness. 10 point ROS negative except as marked above and in HPI. Physical Exam - Vital signs Vitals: Resp 22 H 03/04/18 19:09 Interpretation: Hypoxic, Tachypneic Notes: PHYSICAL EXAMINATION: GENERAL: Cachectic, appears stated age, in moderate to severe respiratory distress. HEAD: Atraumatic, normocephalic. EYES: Pupils equal round and reactive to light, extraocular movements intact, sclera anicteric, conjunctiva are normal. ENT: nares patent, oropharynx clear without exudates. Moderately dry mucous membranes. NECK: Normal range of motion, supple without lymphadenopathy LUNGS: Moderate to severe respiratory distress with initial respiratory rate of 35 breaths per minute on initial assessment. Diffuse rales in all lung bruno. HEART: Irregular regular tachycardia without murmurs ABDOMEN: Soft, nontender, normoactive bowel sounds. No guarding, no rebound. No masses appreciated. EXTREMITIES: Normal range of motion, trace edema in the bilateral lower extremities. No cyanosis. NEUROLOGICAL: No focal neurological deficits. Moves all extremities spontaneously and on command. PSYCH: Somewhat lethargic but alert and oriented SKIN: Warm, Dry, normal turgor, no rashes or lesions noted. Course - Re-evaluation Re-evalutation: 03/04/18 19:17 Patient presents in severe respiratory distress with tachypnea diffuse rales in all lung bruno. Noted to initially be quite hypertensive to 176 systolic on initial evaluation. Nitropaste was placed by EMS. Immediately upon arrival the patient was placed on BiPAP with improvement of his work of breathing. His initial heart rate is noted to be in A. fib varying between low 110s-140s. Will await starting rate control agents until the patient's symptoms have been better controlled using nitroglycerin, IV furosemide and BiPAP. If patient does persist with tachycardia will start a nicardipine drip. Patient is chronically ill, will require frequent reassessments. He is full code. 03/04/18 19:37 Patient's work of breathing continues to improve significantly on BiPAP. Heart rate is also normalizing down to 103 currently. Blood pressure within acceptable limits at 145 systolic. He is no longer in significant distress although does remain mild tachypnea current respiratory rate of 25. Will continue to reassess at regular intervals. 03/04/18 19:57 Patient's work of breathing continues to improve. Chest x-ray shows bilateral vascular congestion, more prominent infiltrate on the right versus the left. Patient's heart rate has normalized currently in the 90s. Current blood pressure 125 and 72 and 20 mcg/min of nitroglycerin. Currently saturating 100% on 35% FiO2. Will continue to reassess at regular intervals. 03/04/18 20:30 Patient continues to be overall much clinically improved. Chest x-ray read as possible pneumonia. The patient has been empirically given a dose of levofloxacin to cover although again I think his picture is overall much more consistent with a pulmonary edema picture and is market elevation of BNP relative his baseline does support this. I discussed this case with the hospitalist was accepted for admission. 03/04/18 20:35 - Vital Signs Vital signs: Temp Pulse Resp BP Pulse Ox 25 H 123/78 100 03/04/18 20:27 03/04/18 20:27 03/04/18 20:27 - Laboratory Result Diagrams: 03/04/18 19:10 03/04/18 19:10 Laboratory results interpreted by me: 03/04/18 03/04/18 03/04/18 19:10 19:10 19:10 WBC 10.7 H RDW 16.6 H Sodium 150.6 H Chloride 110 H BUN 28 H Glucose 229 H Creatine Kinase 52 L NT-Pro-B Natriuret Pep [id number] H - Diagnostic Test Radiology reviewed: Image reviewed, Reports reviewed Radiology results interpreted by me: 03/04/18 20:36 Chest x-ray: Vascular congestion bilaterally, infiltrate to the right lower lobe. Cardiomegaly. - EKG Interpretation by Me Additional EKG results interpreted by me: 03/04/18 20:36 Atrial fibrillation rates ranging between 91 and 170. Left bundle branch block. Negative Edu's criteria. QTC is 533. Critical Care Note - Critical Care Note Total time excluding time spent on procedures (mins): 40 Comments: Critical care time spent obtaining history from patient or surrogate, discussions with consultants, development of treatment plan with patient or surrogate, evaluation of patient's response to treatment, examination of patient , ordering and performing treatments and interventions, ordering and review of laboratory studies, re-evaluation of patient's condition, ordering and review of radiographic studies and review of old charts Discharge - Discharge Clinical Impression: Hypertensive emergency, Acute pulmonary edema, Respiratory distress CHF exacerbation Qualifiers: Heart failure type: unspecified Qualified Code(s): I50.9 - Heart failure, unspecified Condition: Fair Disposition: ADMITTED INPATIENT Admitting Provider: Hospitalist Unit Admitted: IMCU Referrals: RAMANDEEP RAMSEY MD [Primary Care Provider] - Follow up as needed
[2018-03-04 19:31] LABS: ABSOLUTE BASOPHILS # (AUTO) 0.1 10^3/uL (0.0-0.2); ABSOLUTE EOSINOPHILS # (AUTO) 0.4 10^3/uL (0.0-0.6); ABSOLUTE LYMPHOCYTES (AUTO) 2.8 10^3/uL (0.5-4.7); ABSOLUTE MONOCYTES (AUTO) 0.5 10^3/uL (0.1-1.4); ABSOLUTE NEUT (AUTO) 6.8 10^3/uL (1.7-8.2); BASOPHILS % (AUTO) 1.1 % (0-2); EOSINOPHILS % (AUTO) 3.4 % (0-6); HEMATOCRIT 42.4 % (37.9-51.0); LYMPHOCYTES % (AUTO) 26.3 % (13-45); MEAN CORPUSCULAR HEMOGLOBIN 31.8 pg (27.0-33.4); MEAN CORPUSCULAR HGB CONC 33.1 g/dL (32.0-36.0); MEAN CORPUSCULAR VOLUME 96 fl (80-97); MONOCYTES % (AUTO) 4.9 % (3-13); PLATELET COUNT 298 10^3/uL (150-450); RED BLOOD COUNT 4.41 10^6/uL (4.35-5.55); RED CELL DISTRIBUTION WIDTH 16.6 % (11.5-14.0); SEGMENTED NEUTROPHILS % (AUTO) 64.3 % (42-78); TOTAL CELLS COUNTED % (AUTO) 100 %; WHITE BLOOD COUNT 10.7 10^3/uL (4.0-10.5)
[2018-03-04 19:38] LABS: INTERNATIONAL RATION (INR) 1.02; PROTHROMBIN TIME 13.9 SEC (11.4-15.4)
[2018-03-04 19:49] LABS: ALANINE AMINOTRANSFERASE 22 U/L (21-72); ALBUMIN 3.8 g/dL (3.5-5.0); ALKALINE PHOSPHATASE 96 U/L (38-126); ANION GAP 16 (5-19); ASPARTATE AMINO TRANSFERASE 26 U/L (17-59); BILIRUBIN,DIRECT 0.3 mg/dL (0.0-0.4); BILIRUBIN,TOTAL 0.5 mg/dL (0.2-1.3); BLOOD UREA NITROGEN 28 mg/dL (7-20); CALCIUM 9.1 mg/dL (8.4-10.2); CARBON DIOXIDE 25 mmol/L (22-30); CHLORIDE 110 mmol/L (98-107); CREATINE KINASE 52 U/L (55-170); GLUCOSE 229 mg/dL (75-110); POTASSIUM 4.7 mmol/L (3.6-5.0); SODIUM 150.6 mmol/L (137-145); TOTAL PROTEIN 6.9 g/dL (6.3-8.2)
--- NOTE | 2018-03-04 19:57 | EKG REPORT ---
SEVERITY:- ABNORMAL ECG - ATRIAL FIBRILLATION, V-RATE 91-170 LEFT BUNDLE BRANCH BLOCK : Confirmed by: Yamile Chan MD 04-Mar-2018 19:56:51
[2018-03-04 20:01] LABS: CREATINE KINASE MB 1.02 ng/mL (<4.55); TROPONIN I 0.013 ng/mL
--- NOTE | 2018-03-04 20:08 | RADIOLOGY REPORT (SQ) ---
EXAM DESCRIPTION: CHEST SINGLE VIEW COMPLETED DATE/TIME: 03/04/2018 7:55 pm REASON FOR STUDY: sob COMPARISON: 11/07/2017 EXAM PARAMETERS: NUMBER OF VIEWS: One view. TECHNIQUE: Single frontal radiographic view of the chest acquired. RADIATION DOSE: NA LIMITATIONS: None. FINDINGS: LUNGS AND PLEURA: New right lower lobe airspace disease. Lungs and pleural spaces otherwi se stable. MEDIASTINUM AND HILAR STRUCTURES: Stable in size and contour. HEART AND VASCULAR STRUCTURES: Heart stable in size. Normal vasculature. BONES: No acute findings. HARDWARE: None in the chest. OTHER: No other significant finding. IMPRESSION: NEW RIGHT LOWER LOBE AIRSPACE DISEASE PRESUMABLY REPRESENTING PNEUMONIA. RECOMMEND FOLL OWUP RADIOGRAPHS 4 TO 6 WEEKS TO ENSURE RESOLUTION. TECHNICAL DOCUMENTATION: JOB ID: [id number] [facility]- All Rights Reserved Reading location - IP/workstation name: [email or web address]
[2018-03-04] MEDS ORDERED: LEVOFLOXACIN 750 MG/D5W RTU 750 MG/150 ML RTUPB IV ONE (20:30)
[2018-03-04] MEDS ORDERED: LIDOCAINE 2% URO-JET 5 ML KIT MM ONE (20:34)
[2018-03-04] MEDS ORDERED: HEPARIN SOD (PORCINE) 5,000 UNIT/ML 1 ML SYRINGE SUBCUT SCH (22:00)
--- NOTE | 2018-03-04 22:23 | PDOC H&P ---
History of Present Illness Admission Date/PCP: 03/04/18 20:43 RAMANDEEP RAMSEY, History of Present Illness: STACIA ANNE is a 87 year old male patient with multiple comorbidities including CHF, COPD, A. fib, CAD, stage III CKD, diabetes mellitus , dementia and history of CVA, is brought by EMS for progressive worsening of shortness of breath. Due to patient's cognitive impairment and is also on BiPAP with full mask is not source of history. Brief history is obtained from ER attending note and his . At his baseline patient has end-stage lung disease and has been on oxygen . The last several days patient has dry hacking cough and shortness of breath and at this time his checked his saturation and it was 79. No report of fever, chest pain, nausea or vomiting. His blood work show hyponatremia with sodium of 150 and markedly elevated BNP which is 15,000. His chest x-ray reported as pulmonary edema and possible pneumonia of the right lung. After he started on BiPAP, nitroglycerin drip and Lasix is on saturation improved to 95% and his tachypnea has improved. Further detailed history and review of systems unobtainable Past Medical History Cardiac Medical History: Reports: Atrial Fibrillation, Congestive Heart Failure , Coronary Artery Disease, Hyperlipidema, Hypertension Pulmonary Medical History: Reports: Chronic Obstructive Pulmonary Disease (COPD) , Pneumonia Denies: Tuberculosis Endocrine Medical History: Reports: Diabetes Mellitus Type 2 Musculoskeltal Medical History: Reports: Arthritis - osteoporosis Hematology: Denies: Anemia Past Surgical History Past Surgical History: Reports: Appendectomy, Orthopedic Surgery - Back, right knee Social History Lives with: Spouse/Significant other Smoking Status: Never Smoker Frequency of Alcohol Use: None Hx Recreational Drug Use: No Drugs: None Hx Prescription Drug Abuse: No - Advance Directive Resuscitation Status: Do Not Resuscitate Family History Family History: Hypertension Parental Family History Reviewed: Yes Children Family History Reviewed: Yes Sibling(s) Family History Reviewed.: Yes Medication/Allergy Home Medications: Alendronate Sodium [Fosamax "Weekly" 35 mg Tablet] 35 mg PO [id number] 11/07/17 Atorvastatin Calcium [Lipitor 20 mg Tablet] 20 mg PO QHS 11/07/17 Fluticasone Propionate [Flonase Nasal [place] 50 Mcg/[place] 16 gm] 1 spray NASL DAILY 11/07/17 Furosemide [Lasix 40 mg Tablet] 60 mg PO DAILY 11/07/17 Iron Ps Complex/B12/Folic Acid [Poly-Iron 150 Forte Capsule] 1 cap PO BID Lisinopril [Prinivil 10 mg Tablet] 10 mg PO DAILY 11/07/17 Metoprolol Tartrate [Lopressor 25 mg Tablet] 25 mg PO DAILY 11/07/17 Omeprazole 20 mg PO DAILY 11/07/17 Potassium Chloride [Klor-Con 10 Meq Tablet.sa] 10 meq PO BID 11/07/17 Diltiazem HCl [Cardizem Cd 180 mg Capsule] 180 mg PO QHS #30 capsule.cr Mirabegron [Myrbetriq] 25 mg PO .DAILY 11/10/17 Allergies/Adverse Reactions: cortisone [Cortisone] Allergy (Mild, Verified 10/14/15 07:57) sugar and B/P were elevated Review of Systems ROS unobtainable: Due to mental status Physical Exam Vital Signs: Temp Pulse Resp BP Pulse Ox 25 H 123/78 100 03/04/18 20:27 03/04/18 20:27 03/04/18 20:27 Intake & Output 03/03/18 03/04/18 03/05/18 06:59 06:59 06:59 Weight 47.627 kg General appearance: PRESENT: mild distress Head exam: PRESENT: atraumatic, normocephalic Eye exam: PRESENT: conjunctiva pink, EOMI, PERRLA. ABSENT: scleral icterus Neck exam: ABSENT: carotid bruit, JVD, lymphadenopathy, thyromegaly Respiratory exam: PRESENT: decreased breath sounds, rhonchi - Bilaterally, tachypnea, wheezes Cardiovascular exam: PRESENT: irregular rhythm GI/Abdominal exam: PRESENT: normal bowel sounds, soft. ABSENT: distended, guarding, mass, organolmegaly, rebound, tenderness Extremities exam: PRESENT: +1 edema Neurological exam: PRESENT: alert Results Impressions: Chest X-Ray 03/04/18 19:11 IMPRESSION: NEW RIGHT LOWER LOBE AIRSPACE DISEASE PRESUMABLY REPRESENTING PNEUMONIA. RECOMMEND FOLLOWUP RADIOGRAPHS 4 TO 6 WEEKS TO ENSURE RESOLUTION. Assessment & Plan - Diagnosis (1) Acute pulmonary edema Is this a current diagnosis for this admission?: Yes Plan: Patient has history of recurrent pulmonary edema. He has been treated with nitro drip and Lasix. (2) CHF exacerbation Qualifiers: Heart failure type: systolic Qualified Code(s): I50.23 - Acute on chronic systolic (congestive) heart failure Plan: Patient has been started on Lasix, metoprolol succinate and lisinopril. 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 (4) CKD (chronic kidney disease), stage III Is this a current diagnosis for this admission?: Yes (5) COPD (chronic obstructive pulmonary disease) Qualifiers: COPD type: unspecified COPD Qualified Code(s): J44.9 - Chronic obstructive pulmonary disease, unspecified Is this a current diagnosis for this admission?: Yes Plan: As needed bronchodilators. Continue other home medications. (6) A-fib Qualifiers: Atrial fibrillation type: chronic Qualified Code(s): I48.2 - Chronic atrial fibrillation Is this a current diagnosis for this admission?: Yes Plan: Rate controlled. (7) Pneumonia Qualifiers: Laterality: right Is this a current diagnosis for this admission?: Yes Plan: Patient has been started empirically on Levaquin. - Time Time Spent: 30 to 50 Minutes - Inpatient Certification Medical Necessity: Need Close Monitoring Due to Risk of Patient Decompensation, Need for IV Antibiotics
[2018-03-04 22:45] LABS: APPEARANCE,URINE CLEAR; BILIRUBIN,URINE NEGATIVE (NEGATIVE); COLOR,URINE STRAW; GLUCOSE, URINE NEGATIVE (NEGATIVE); KETONES,URINE NEGATIVE (NEGATIVE); LEUKOCYTE ESTERASE,URINE NEGATIVE (NEGATIVE); NITRITE,URINE NEGATIVE (NEGATIVE); PROTEIN,URINE NEGATIVE (NEGATIVE); URINE SPECIFIC GRAVITY 1.005; UROBILINOGEN,URINE NEGATIVE mg/dL (<2.0)
[2018-03-04] MEDS: FUROSEMIDE INJ/PF 40 MG/4 ML SDV IV SCH (22:45)
[2018-03-04] MEDS: DILTIAZEM HCL 120 MG CAP.SR.24H PO SCH (22:59)
[2018-03-05] MEDS: LANSOPRAZOLE 30 MG TAB.RAP.DR PO SCH (06:48)
[2018-03-05 07:19] LABS: ABSOLUTE EOSINOPHILS # (AUTO) 0.1 10^3/uL (0.0-0.6); ABSOLUTE LYMPHOCYTES (AUTO) 1.2 10^3/uL (0.5-4.7); ABSOLUTE MONOCYTES (AUTO) 0.7 10^3/uL (0.1-1.4); ABSOLUTE NEUT (AUTO) 7.3 10^3/uL (1.7-8.2); BASOPHILS % (AUTO) 0.2 % (0-2); EOSINOPHILS % (AUTO) 1.2 % (0-6); HEMATOCRIT 35.8 % (37.9-51.0); HEMOGLOBIN 12.1 g/dL (13.5-17.0); LYMPHOCYTES % (AUTO) 13.1 % (13-45); MEAN CORPUSCULAR HEMOGLOBIN 31.9 pg (27.0-33.4); MEAN CORPUSCULAR HGB CONC 33.7 g/dL (32.0-36.0); MEAN CORPUSCULAR VOLUME 95 fl (80-97); MONOCYTES % (AUTO) 7.3 % (3-13); PLATELET COUNT 214 10^3/uL (150-450); RED BLOOD COUNT 3.78 10^6/uL (4.35-5.55); RED CELL DISTRIBUTION WIDTH 16.1 % (11.5-14.0); SEGMENTED NEUTROPHILS % (AUTO) 78.2 % (42-78); TOTAL CELLS COUNTED % (AUTO) 100 %; WHITE BLOOD COUNT 9.4 10^3/uL (4.0-10.5)
[2018-03-05 09:03] LABS: ANION GAP 14 (5-19); BLOOD UREA NITROGEN 26 mg/dL (7-20); CALCIUM 8.8 mg/dL (8.4-10.2); CARBON DIOXIDE 25 mmol/L (22-30); CHLORIDE 112 mmol/L (98-107); GLUCOSE 140 mg/dL (75-110); POTASSIUM 4.6 mmol/L (3.6-5.0); SODIUM 151.1 mmol/L (137-145)
[2018-03-05] MEDS ORDERED: (PENDING PHARMACY ID) (Mirabegron [Myrbetriq] 25 MG) PO SCH (09:30)
--- NOTE | 2018-03-05 09:54 | EKG REPORT ---
SEVERITY:- ABNORMAL ECG - ATRIAL FIBRILLATION, V-RATE 62-115 LEFT BUNDLE BRANCH BLOCK : Confirmed by: Yamile Chan MD 05-Mar-2018 09:53:27
[2018-03-05] MEDS ORDERED: LISINOPRIL 10 MG TABLET PO SCH (10:00)
[2018-03-05] MEDS ORDERED: (PENDING PHARMACY ID) (Iron Ps Complex/B12/Folic Acid [Poly-Iron 150 Forte Capsule] 1 CAP) PO SCH (10:00)
[2018-03-05] MEDS ORDERED: METOPROLOL SUCCINATE 25 MG TAB.SR.24H PO SCH (10:00)
[2018-03-05] MEDS: FUROSEMIDE INJ/PF 40 MG/4 ML SDV IV SCH ×2 (11:19→21:12)
[2018-03-05] MEDS: METOPROLOL TARTRATE 25 MG TABLET PO SCH ×2 (11:20→21:13)
[2018-03-05] MEDS: FLUTICASONE NASAL SPRAY 50 MCG/SPRY 120 SPRAY/16 GM NASL SCH (11:20)
[2018-03-05] MEDS: LISINOPRIL 10 MG TABLET PO SCH ×2 (11:21→21:13)
--- NOTE | 2018-03-05 11:34 | PDOC CONSULTATION ---
Consultation Consult Date: 03/05/18 Attending physician:: MICHAEL HYMAN Consult reason:: chf History of Present Illness Admission Date/PCP: 03/04/18 20:43 Patient complains of: Sudden onset shortness of breath History of Present Illness: STACIA ANNE is a 87 year old male patient with multiple comorbidities including CHF, COPD, A. fib, CAD, stage III CKD, diabetes mellitus , dementia and history of CVA, is brought by EMS for progressive worsening of shortness of breath. Due to patient's cognitive impairment and is also on BiPAP with full mask is not source of history. Brief history is obtained from ER attending note and his . At his baseline patient has end-stage lung disease and has been on oxygen /. The last several days patient has dry hacking cough and shortness of breath and at this time his checked his saturation and it was 79. No report of fever, chest pain, nausea or vomiting. His blood work show hyponatremia with sodium of 150 and markedly elevated BNP which is 15,000. His chest x-ray reported as pulmonary edema and possible pneumonia of the right lung. After he started on BiPAP, nitroglycerin drip and Lasix is on saturation improved to 95% and his tachypnea has improved. Further detailed history and review of systems unobtainable. This history obtained by the hospitalist was reviewed and confirmed. Patient's at bedside. Patient has history of chronic atrial fibrillation and also left bundle branch block pattern and valvular heart disease. Patient did have a echocardiogram in November 2017 and these results were reviewed. Past Medical History Cardiac Medical History: Reports: Atrial Fibrillation, Congestive Heart Failure , Coronary Artery Disease, Hyperlipidema, Hypertension Pulmonary Medical History: Reports: Chronic Obstructive Pulmonary Disease (COPD) , Pneumonia Denies: Tuberculosis Endocrine Medical History: Reports: Diabetes Mellitus Type 2 Musculoskeltal Medical History: Reports: Arthritis - osteoporosis Hematology: Denies: Anemia Past Surgical History Past Surgical History: Reports: Appendectomy, Orthopedic Surgery - Back, right knee Social History Lives with: Spouse/Significant other Smoking Status: Never Smoker Frequency of Alcohol Use: None Hx Recreational Drug Use: No Drugs: None Hx Prescription Drug Abuse: No - Advance Directive Resuscitation Status: Do Not Resuscitate Surrogate healthcare decision maker:: Patient's is the surrogate decision-maker Family History Family History: Hypertension Parental Family History Reviewed: Yes Children Family History Reviewed: Yes Sibling(s) Family History Reviewed.: Yes Medication/Allergy Home Medications: Alendronate Sodium [Fosamax "Weekly" 35 mg Tablet] 35 mg PO [id number] 11/07/17 Atorvastatin Calcium [Lipitor 20 mg Tablet] 20 mg PO QHS 11/07/17 Fluticasone Propionate [Flonase Nasal [place] 50 Mcg/[place] 16 gm] 1 spray NASL DAILY 11/07/17 Furosemide [Lasix 40 mg Tablet] 40 mg PO BID 11/07/17 Iron Ps Complex/B12/Folic Acid [Poly-Iron 150 Forte Capsule] 1 cap PO BID Lisinopril [Prinivil 10 mg Tablet] 5 mg PO BID 11/07/17 Metoprolol Tartrate [Lopressor 25 mg Tablet] 12.5 mg PO BID 11/07/17 Omeprazole 20 mg PO DAILY 11/07/17 Potassium Chloride [Klor-Con 10 Meq Tablet.sa] 10 meq PO BID 11/07/17 Mirabegron [Myrbetriq] 25 mg PO .DAILY 11/10/17 Allergies/Adverse Reactions: cortisone [Cortisone] Allergy (Mild, Verified 10/14/15 07:57) sugar and B/P were elevated Review of Systems ROS unobtainable: Due to mental status Physical Exam Vital Signs: Temp Pulse Resp BP Pulse Ox 97.9 F 28 H 123/73 100 03/05/18 07:31 03/05/18 09:00 03/05/18 06:30 03/05/18 09:00 Intake & Output 03/04/18 03/05/18 03/06/18 06:59 06:59 06:59 Output Total 950 Balance -950 Weight 47.627 kg Exam: GENERAL: well-nourished and in no acute distress. Alert and oriented x2 HEAD: Atraumatic, normocephalic. EYES: Pupils equal round and reactive to light, extraocular movements intact, sclera anicteric, conjunctiva are normal. ENT: TMs normal, nares patent, oropharynx clear without exudates. Moist mucous membranes. No oral ulcerations or bleeding gums noted NECK: supple without lymphadenopathy. Trachea is central. No cervical or axillary lymphadenopathy noted. Carotids are 2+, JVD 10 cm LUNGS: Respiration seems nonlabored, no significant accessory muscle action noted. Bibasilar fine crackles noted. No wheezes rales or rhonchi noted. No significant dullness noted on percussion. CHEST: Palpation of the chest wall shows no significant chest wall tenderness. HEART: [place] [employer], No PSH, 2/6 KACEY aortic area, 2/6 huitron systolic murmur mitral area , no rubs, no gallops. ABDOMEN: Soft, no significant tenderness appreciated, normoactive bowel sounds. No guarding, no rebound. No rigidity noted . No masses appreciated. EXTREMITIES: Pedal pulses are 1-2+, no calf tenderness noted. No clubbing or cyanosis. negative pedal edema noted NEUROLOGICAL: Focused neurological exam showed no significant neurologic deficit. Normal speech, no focal weakness appreciated. PSYCH: Normal mood, normal affect. Judgment and insight not checked because of dementia SKIN: No significant ecchymosis, skin is noted to be warm. MUSCULOSKELETAL EXAM: No significant acute joint swelling noted. Results Laboratory Results: 03/05/18 06:50 03/05/18 08:36 03/04/18 03/05/18 03/05/18 22:20 06:50 06:50 WBC 9.4 RBC 3.78 L Hgb 12.1 L Hct 35.8 L MCV 95 MCH 31.9 MCHC 33.7 RDW 16.1 H Plt Count 214 Seg Neutrophils % 78.2 H Lymphocytes % 13.1 Monocytes % 7.3 Eosinophils % 1.2 Basophils % 0.2 Absolute Neutrophils 7.3 Absolute Lymphocytes 1.2 Absolute Monocytes 0.7 Absolute Eosinophils 0.1 Absolute Basophils 0.0 Sodium Cancelled Potassium Cancelled Chloride Cancelled Carbon Dioxide Cancelled Anion Gap Cancelled BUN Cancelled Creatinine Cancelled Est GFR ( Amer) Cancelled Est GFR (Non-Af Amer) Cancelled Glucose Cancelled Calcium Cancelled Magnesium Cancelled Urine Color STRAW Urine Appearance CLEAR Urine pH 5.0 Ur Specific [place] 1.005 Urine Protein NEGATIVE Urine Glucose (UA) NEGATIVE Urine Ketones NEGATIVE Urine Blood SMALL H Urine Nitrite NEGATIVE Ur Leukocyte Esterase NEGATIVE Urine WBC (Auto) 1 Urine RBC (Auto) 1 03/05/18 08:36 WBC RBC Hgb Hct MCV MCH MCHC RDW Plt Count Seg Neutrophils % Lymphocytes % Monocytes % Eosinophils % Basophils % Absolute Neutrophils Absolute Lymphocytes Absolute Monocytes Absolute Eosinophils Absolute Basophils Sodium 151.1 H Potassium 4.6 Chloride 112 H Carbon Dioxide 25 Anion Gap 14 BUN 26 H Creatinine 0.98 Est GFR ( Amer) > 60 Est GFR (Non-Af Amer) > 60 Glucose 140 H Calcium 8.8 Magnesium Urine Color Urine Appearance Urine pH Ur Specific [place] Urine Protein Urine Glucose (UA) Urine Ketones Urine Blood Urine Nitrite Ur Leukocyte Esterase Urine WBC (Auto) Urine RBC (Auto) EKG Comments: Shows atrial fibrillation with right bundle branch block Impressions: Chest X-Ray 03/04/18 19:11 IMPRESSION: NEW RIGHT LOWER LOBE AIRSPACE DISEASE PRESUMABLY REPRESENTING PNEUMONIA. RECOMMEND FOLLOWUP RADIOGRAPHS 4 TO 6 WEEKS TO ENSURE RESOLUTION. Assessment & Plan - Diagnosis (2) Pneumonia Qualifiers: Laterality: right Is this a current diagnosis for this admission?: Yes (3) Acute and chronic respiratory failure with hypoxia Is this a current diagnosis for this admission?: Yes (4) A-fib Qualifiers: Atrial fibrillation type: chronic Qualified Code(s): I48.2 - Chronic atrial fibrillation Is this a current diagnosis for this admission?: Yes (5) COPD (chronic obstructive pulmonary disease) Qualifiers: COPD type: unspecified COPD Qualified Code(s): J44.9 - Chronic obstructive pulmonary disease, unspecified Is this a current diagnosis for this admission?: Yes (6) HTN (hypertension) Qualifiers: Hypertension type: essential hypertension Qualified Code(s): I10 - Essential (primary) hypertension Is this a current diagnosis for this admission?: Yes (7) Hyperlipidemia Qualifiers: Hyperlipidemia type: unspecified Qualified Code(s): E78.5 - Hyperlipidemia , unspecified Is this a current diagnosis for this admission?: Yes - Notes Notes: Congestive heart failure: This is felt to be systolic plus diastolic, acute on chronic. Most likely precipitated by pneumonia, possible aspiration. Continue IV diuretics and COLLINS inhibitor and beta-joya. May consider switch to metoprolol succinate, bisoprolol or carvedilol. Pneumonia: Chest x-ray reviewed shows right-sided basilar pneumonia. Possibly aspiration related. Agree with antibiotic therapy. Acute on chronic respiratory failure with hypoxemia: Continue with oxygen supplementation. Atrial fibrillation: Chronic. Patient has history of falls therefore some contraindication for chronic Coumadin therapy or other anticoagulation therapy. But this would need to be reassessed on a periodic basis. COPD: Currently is stable continue bronchodilator and other supportive management. Hypertension: Blood pressure under satisfactory control. Continue current regimen. Dyslipidemia: Continue statin therapy or other antilipid therapy. - Time Time Spent: 30 to 50 Minutes - CODE STATUS : was discussed, patient remains DO NOT RESUSCITATE. Surrogate decision-maker unchanged. Multiple medical problems were addressed. More than 50% of the time spent coordinating care, discussing management plans with involved caregivers. Management plans discussed with involved personnels. Medical decision making was of moderate to high complexity, patient's has multiple comorbidities. Medications reviewed and adjusted accordingly: Yes
[2018-03-05 13:17] LABS: HEMATOCRIT 34.7 % (37.9-51.0); HEMOGLOBIN 11.4 g/dL (13.5-17.0); MEAN CORPUSCULAR HEMOGLOBIN 31.3 pg (27.0-33.4); MEAN CORPUSCULAR HGB CONC 32.8 g/dL (32.0-36.0); MEAN CORPUSCULAR VOLUME 96 fl (80-97); PLATELET COUNT 195 10^3/uL (150-450); RED BLOOD COUNT 3.63 10^6/uL (4.35-5.55); WHITE BLOOD COUNT 7.7 10^3/uL (4.0-10.5)
[2018-03-05 13:21] LABS: INTERNATIONAL RATION (INR) 1.13; PROTHROMBIN TIME 15.1 SEC (11.4-15.4)
[2018-03-05 13:22] LABS: PARTIAL THROMBOPLASTIN TIME 30.2 SEC (23.5-35.8)
[2018-03-05] MEDS ORDERED: ENOXAPARIN SODIUM INJ 40 MG/0.4 ML DISP.SYRIN SUBCUT ONE (15:00)
--- NOTE | 2018-03-05 16:27 | PDOC PROGRESS REPORT ---
Subjective Progress Note for:: 03/05/18 Subjective:: 87 yr old gentleman who presented with abrupt onset dyspnea and acute hypoxic respiratory failure secondary to pulmonary edema due to systolic and diastolic CHF exacerbation and R sided infiltrate, started on BiPAP NTG gtt and Levaquin. His reports episodes of coughing with food, and his dyspnea started a few minutes after dinner. No recent fever, increased cough , expectoration, chest pain or increasing dyspnea/edema. feels better and no complaints at presnt. Off biPAP when I saw him around 10 am. Reason For Visit: HEART FAILURE/PNA Physical Exam Vital Signs: Temp Pulse Resp BP Pulse Ox 97.4 F 80 22 H 108/62 98 03/05/18 15:51 03/05/18 15:51 03/05/18 15:51 03/05/18 15:51 03/05/18 15:51 Intake & Output 03/04/18 03/05/18 03/06/18 06:59 06:59 06:59 Intake Total 200 Output Total 950 900 Balance -950 -700 Weight 47.627 kg 52.6 kg General appearance: PRESENT: no acute distress Head exam: PRESENT: normocephalic Respiratory exam: PRESENT: crackles, symmetrical, unlabored Cardiovascular exam: PRESENT: RRR GI/Abdominal exam: PRESENT: normal bowel sounds, soft. ABSENT: tenderness Rectal exam: PRESENT: deferred Extremities exam: ABSENT: pedal edema Neurological exam: PRESENT: alert, awake, oriented to person Psychiatric exam: PRESENT: normal mood Results Laboratory Results: 03/05/18 13:06 03/05/18 13:06 03/04/18 03/05/18 03/05/18 22:20 06:50 06:50 WBC 9.4 RBC 3.78 L Hgb 12.1 L Hct 35.8 L MCV 95 MCH 31.9 MCHC 33.7 RDW 16.1 H Plt Count 214 Seg Neutrophils % 78.2 H Lymphocytes % 13.1 Monocytes % 7.3 Eosinophils % 1.2 Basophils % 0.2 Absolute Neutrophils 7.3 Absolute Lymphocytes 1.2 Absolute Monocytes 0.7 Absolute Eosinophils 0.1 Absolute Basophils 0.0 Sodium Cancelled Potassium Cancelled Chloride Cancelled Carbon Dioxide Cancelled Anion Gap Cancelled BUN Cancelled Creatinine Cancelled Est GFR ( Amer) Cancelled Est GFR (Non-Af Amer) Cancelled Glucose Cancelled Calcium Cancelled Phosphorus Magnesium Cancelled Urine Color STRAW Urine Appearance CLEAR Urine pH 5.0 Ur Specific [place] 1.005 Urine Protein NEGATIVE Urine Glucose (UA) NEGATIVE Urine Ketones NEGATIVE Urine Blood SMALL H Urine Nitrite NEGATIVE Ur Leukocyte Esterase NEGATIVE Urine WBC (Auto) 1 Urine RBC (Auto) 1 03/05/18 03/05/18 03/05/18 08:36 08:36 13:06 WBC 7.7 RBC 3.63 L Hgb 11.4 L Hct 34.7 L MCV 96 MCH 31.3 MCHC 32.8 RDW 16.0 H Plt Count 195 Seg Neutrophils % Lymphocytes % Monocytes % Eosinophils % Basophils % Absolute Neutrophils Absolute Lymphocytes Absolute Monocytes Absolute Eosinophils Absolute Basophils Sodium 151.1 H Potassium 4.6 Chloride 112 H Carbon Dioxide 25 Anion Gap 14 BUN 26 H Creatinine 0.98 Est GFR ( Amer) > 60 Est GFR (Non-Af Amer) > 60 Glucose 140 H Calcium 8.8 Phosphorus 4.0 Magnesium 2.3 Urine Color Urine Appearance Urine pH Ur Specific [place] Urine Protein Urine Glucose (UA) Urine Ketones Urine Blood Urine Nitrite Ur Leukocyte Esterase Urine WBC (Auto) Urine RBC (Auto) 03/05/18 13:06 WBC RBC Hgb Hct MCV MCH MCHC RDW Plt Count Seg Neutrophils % Lymphocytes % Monocytes % Eosinophils % Basophils % Absolute Neutrophils Absolute Lymphocytes Absolute Monocytes Absolute Eosinophils Absolute Basophils Sodium Potassium Chloride Carbon Dioxide Anion Gap BUN Creatinine 1.10 Est GFR ( Amer) > 60 Est GFR (Non-Af Amer) > 60 Glucose Calcium Phosphorus Magnesium Urine Color Urine Appearance Urine pH Ur Specific [place] Urine Protein Urine Glucose (UA) Urine Ketones Urine Blood Urine Nitrite Ur Leukocyte Esterase Urine WBC (Auto) Urine RBC (Auto) Impressions: Chest X-Ray 03/04/18 19:11 IMPRESSION: NEW RIGHT LOWER LOBE AIRSPACE DISEASE PRESUMABLY REPRESENTING PNEUMONIA. RECOMMEND FOLLOWUP RADIOGRAPHS 4 TO 6 WEEKS TO ENSURE RESOLUTION. Assessment & Plan - Diagnosis (1) Aspiration into lower respiratory tract Is this a current diagnosis for this admission?: Yes Plan: R sided infiltrate. Speech eval Aspiration precautions levaquin switched to Zosyn due to prolonged QTc (2) Acute pulmonary edema Is this a current diagnosis for this admission?: Yes Plan: Improving, NTG gtt off IV Lasix, monitor intake/output, renal function (3) CHF exacerbation Qualifiers: Heart failure type: combined systolic and diastolic Qualified Code(s): I50.43 - Acute on chronic combined systolic (congestive) and diastolic ( congestive) heart failure Is this a current diagnosis for this admission?: Yes Plan: As above (4) Acute and chronic respiratory failure with hypoxia Is this a current diagnosis for this admission?: Yes Plan: As above (5) CKD (chronic kidney disease), stage III Is this a current diagnosis for this admission?: Yes (6) COPD (chronic obstructive pulmonary disease) Qualifiers: COPD type: unspecified COPD Qualified Code(s): J44.9 - Chronic obstructive pulmonary disease, unspecified Is this a current diagnosis for this admission?: Yes Plan: Stable (7) DNR (do not resuscitate) Is this a current diagnosis for this admission?: Yes (8) Dysphagia Is this a current diagnosis for this admission?: Yes Plan: Aspiration precautions Speech eval (9) DVT prophylaxis Is this a current diagnosis for this admission?: Yes Plan: S/C Lovenox - Time Time Spent with patient: 35 or more minutes
[2018-03-05] MEDS: LACTOBACILLUS ACIDOPHILUS 250 MG TAB PO SCH (17:06)
[2018-03-05] MEDS: PIPERACILLIN SODIUM/TAZOBACTAM 3.375 GM in NORMAL SALINE 100 ML IV SCH ×2 (17:07→21:06)
[2018-03-05] MEDS ORDERED: LEVOFLOXACIN 500 MG/D5W RTU 500 MG/100 ML RTUPB IV SCH (18:00)
[2018-03-05] MEDS: DILTIAZEM HCL 120 MG CAP.SR.24H PO SCH (21:12)
[2018-03-05] MEDS: ATORVASTATIN CALCIUM 20 MG TABLET PO SCH (21:13)
[2018-03-06] MEDS: PIPERACILLIN SODIUM/TAZOBACTAM 3.375 GM in NORMAL SALINE 100 ML IV SCH ×4 (03:23→21:19)
[2018-03-06] MEDS: LANSOPRAZOLE 30 MG TAB.RAP.DR PO SCH (05:11)
[2018-03-06 06:33] LABS: HEMATOCRIT 37.1 % (37.9-51.0); MEAN CORPUSCULAR HEMOGLOBIN 30.9 pg (27.0-33.4); MEAN CORPUSCULAR HGB CONC 32.4 g/dL (32.0-36.0); MEAN CORPUSCULAR VOLUME 95 fl (80-97); PLATELET COUNT 189 10^3/uL (150-450); RED BLOOD COUNT 3.89 10^6/uL (4.35-5.55); RED CELL DISTRIBUTION WIDTH 16.4 % (11.5-14.0); WHITE BLOOD COUNT 6.3 10^3/uL (4.0-10.5)
[2018-03-06 06:43] LABS: ANION GAP 10 (5-19); BLOOD UREA NITROGEN 26 mg/dL (7-20); CALCIUM 8.4 mg/dL (8.4-10.2); CARBON DIOXIDE 33 mmol/L (22-30); CHLORIDE 108 mmol/L (98-107); CHOLESTEROL 130.01 mg/dL (0-200); GLUCOSE 96 mg/dL (75-110); PHOSPHORUS 3.7 mg/dL (2.5-4.5); POTASSIUM 4.1 mmol/L (3.6-5.0); SODIUM 150.5 mmol/L (137-145); TRIGLYCERIDES 65 mg/dL (<150)
[2018-03-06 06:54] LABS: DIRECT LDL 74 mg/dL (<100)
--- NOTE | 2018-03-06 09:02 | PDOC PROGRESS REPORT ---
Subjective Progress Note for:: 03/06/18 Subjective:: The patient looks much better this morning. He denies any shortness of breath or cough. She had a good urine output. Reason For Visit: HEART FAILURE/PNA Physical Exam Vital Signs: Temp Pulse Resp BP Pulse Ox 97.5 F 77 22 H 118/57 L 99 03/06/18 07:54 03/06/18 08:28 03/06/18 07:54 03/06/18 07:54 03/06/18 07:54 Intake & Output 03/05/18 03/06/18 03/07/18 06:59 06:59 06:59 Intake Total 855 Output Total 950 1800 Balance -950 -945 Weight 47.627 kg 52.2 kg General appearance: PRESENT: mild distress Head exam: PRESENT: atraumatic Eye exam: PRESENT: conjunctiva pink Neck exam: ABSENT: carotid bruit, JVD Respiratory exam: PRESENT: crackles, rhonchi Cardiovascular exam: PRESENT: irregular rhythm, +S1, +S2 GI/Abdominal exam: PRESENT: normal bowel sounds, soft Extremities exam: PRESENT: tenderness Musculoskeletal exam: PRESENT: tenderness Neurological exam: PRESENT: awake Results Laboratory Results: 03/06/18 05:59 03/06/18 05:59 03/05/18 03/05/18 03/05/18 08:36 08:36 13:06 WBC 7.7 RBC 3.63 L Hgb 11.4 L Hct 34.7 L MCV 96 MCH 31.3 MCHC 32.8 RDW 16.0 H Plt Count 195 Sodium 151.1 H Potassium 4.6 Chloride 112 H Carbon Dioxide 25 Anion Gap 14 BUN 26 H Creatinine 0.98 Est GFR ( Amer) > 60 Est GFR (Non-Af Amer) > 60 Glucose 140 H Calcium 8.8 Phosphorus 4.0 Magnesium 2.3 Triglycerides Cholesterol LDL Cholesterol Direct VLDL Cholesterol HDL Cholesterol 03/05/18 03/06/18 03/06/18 13:06 05:59 05:59 WBC 6.3 RBC 3.89 L Hgb 12.0 L Hct 37.1 L MCV 95 MCH 30.9 MCHC 32.4 RDW 16.4 H Plt Count 189 Sodium 150.5 H Potassium 4.1 Chloride 108 H Carbon Dioxide 33 H Anion Gap 10 BUN 26 H Creatinine 1.10 1.19 Est GFR ( Amer) > 60 > 60 Est GFR (Non-Af Amer) > 60 58 L Glucose 96 Calcium 8.4 Phosphorus 3.7 Magnesium 2.0 Triglycerides 65 Cholesterol 130.01 LDL Cholesterol Direct 74 VLDL Cholesterol 13.0 HDL Cholesterol 34 L 03/06/18 05:59 NT-Pro-B Natriuret Pep 6340 H Impressions: Chest X-Ray 03/04/18 19:11 IMPRESSION: NEW RIGHT LOWER LOBE AIRSPACE DISEASE PRESUMABLY REPRESENTING PNEUMONIA. RECOMMEND FOLLOWUP RADIOGRAPHS 4 TO 6 WEEKS TO ENSURE RESOLUTION. Assessment & Plan - Diagnosis (1) A-fib Qualifiers: Atrial fibrillation type: chronic Qualified Code(s): I48.2 - Chronic atrial fibrillation Is this a current diagnosis for this admission?: Yes (2) Acute pulmonary edema Is this a current diagnosis for this admission?: Yes Plan: We will continue with diuretics (3) Pneumonia Qualifiers: Laterality: right Is this a current diagnosis for this admission?: Yes Plan: We will switch to p.o. antibiotics (4) Acute and chronic respiratory failure with hypoxia Is this a current diagnosis for this admission?: Yes Plan: Continue current nebulization treatments (5) CKD (chronic kidney disease), stage III Is this a current diagnosis for this admission?: Yes Plan: We will decrease the diuretics after the diureses (6) DNR (do not resuscitate) Is this a current diagnosis for this admission?: Yes (7) Diabetes mellitus Qualifiers: Diabetes mellitus type: type 2 Is this a current diagnosis for this admission?: Yes Plan: Continue current treatment
[2018-03-06] MEDS: ENOXAPARIN SODIUM INJ 40 MG/0.4 ML DISP.SYRIN SUBCUT SCH (10:16)
[2018-03-06] MEDS: LEVOFLOXACIN 500 MG TABLET PO SCH (10:18)
[2018-03-06] MEDS: LISINOPRIL 10 MG TABLET PO SCH ×2 (10:19→21:19)
[2018-03-06] MEDS: LACTOBACILLUS ACIDOPHILUS 250 MG TAB PO SCH ×2 (10:19→17:43)
[2018-03-06] MEDS: METOPROLOL TARTRATE 25 MG TABLET PO SCH (10:19)
[2018-03-06] MEDS: FUROSEMIDE INJ/PF 40 MG/4 ML SDV IV SCH ×2 (10:20→21:14)
--- NOTE | 2018-03-06 11:27 | PDOC PROGRESS REPORT ---
Subjective Progress Note for:: 03/06/18 Subjective:: Patient seems to be doing better with significant improvement. Pt is denying any chest arm or neck discomfort. Patient denying any PND, orthopnea. Patient denied any sustained palpitations, dizziness, syncope, near syncope. Patient denying any fever chills. Patient denying any other significant discomfort. Patient is maintaining atrial fibrillation: Heart rate is well controlled. Review of systems: Rest review of systems negative. Medications: Medications have been reviewed. Reason For Visit: HEART FAILURE/PNA Physical Exam Vital Signs: Temp Pulse Resp BP Pulse Ox 97.5 F 77 22 H 118/57 L 99 03/06/18 07:54 03/06/18 08:28 03/06/18 07:54 03/06/18 07:54 03/06/18 07:54 Intake & Output 03/05/18 03/06/18 03/07/18 06:59 06:59 06:59 Intake Total 855 Output Total 950 1800 Balance -950 -945 Weight 47.627 kg 52.2 kg Exam: GENERAL: well-nourished and in no acute distress. Patient is alert but not oriented to place and person., Oriented x2. HEAD: Atraumatic, normocephalic. EYES: Pupils equal round and reactive to light, extraocular movements intact, sclera anicteric, conjunctiva are normal. ENT: TMs normal, nares patent, oropharynx clear without exudates. Moist mucous membranes. No oral ulcerations or bleeding gums noted NECK: supple without lymphadenopathy or JVD. Trachea is central. No cervical or axillary lymphadenopathy noted. Carotids are 2+ LUNGS: Breath sounds bibasilar fine crackles at bases. No significant dullness noted. CHEST: Palpation of chest wall shows no significant chest wall tenderness. 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 ABDOMEN: Soft, no significant tenderness appreciated, normoactive bowel sounds. No guarding, no rebound. No rigidity noted . No masses appreciated. EXTREMITIES: Pedal pulses are 1-2+, no calf tenderness noted, Trace + pedal edema noted. No clubbing or cyanosis. NEUROLOGICAL: Patient is alert no focal neurological deficit noted on quick exam. Patient just had generalized weakness. PSYCH: Patient cannot participate in a neurologic and psych exam because of the patient's current mental status SKIN: No significant ecchymosis, rash, ulcerations or signs of pruritus noted. MUSCULOSKELETAL EXAM: No significant joint swelling noted. Results Laboratory Results: 03/06/18 05:59 03/06/18 05:59 03/05/18 03/05/18 03/06/18 13:06 13:06 05:59 WBC 7.7 6.3 RBC 3.63 L 3.89 L Hgb 11.4 L 12.0 L Hct 34.7 L 37.1 L MCV 96 95 MCH 31.3 30.9 MCHC 32.8 32.4 RDW 16.0 H 16.4 H Plt Count 195 189 Sodium Potassium Chloride Carbon Dioxide Anion Gap BUN Creatinine 1.10 Est GFR ( Amer) > 60 Est GFR (Non-Af Amer) > 60 Glucose Calcium Phosphorus Magnesium Triglycerides Cholesterol LDL Cholesterol Direct VLDL Cholesterol HDL Cholesterol 03/06/18 05:59 WBC RBC Hgb Hct MCV MCH MCHC RDW Plt Count Sodium 150.5 H Potassium 4.1 Chloride 108 H Carbon Dioxide 33 H Anion Gap 10 BUN 26 H Creatinine 1.19 Est GFR ( Amer) > 60 Est GFR (Non-Af Amer) 58 L Glucose 96 Calcium 8.4 Phosphorus 3.7 Magnesium 2.0 Triglycerides 65 Cholesterol 130.01 LDL Cholesterol Direct 74 VLDL Cholesterol 13.0 HDL Cholesterol 34 L 03/06/18 05:59 NT-Pro-B Natriuret Pep 6340 H EKG Comments: Telemetry shows atrial fibrillation with controlled ventricular response. Impressions: Chest X-Ray 03/04/18 19:11 IMPRESSION: NEW RIGHT LOWER LOBE AIRSPACE DISEASE PRESUMABLY REPRESENTING PNEUMONIA. RECOMMEND FOLLOWUP RADIOGRAPHS 4 TO 6 WEEKS TO ENSURE RESOLUTION. Assessment & Plan - Diagnosis (2) Pneumonia Qualifiers: Laterality: right Is this a current diagnosis for this admission?: Yes (3) Acute and chronic respiratory failure with hypoxia Is this a current diagnosis for this admission?: Yes (4) A-fib Qualifiers: Atrial fibrillation type: chronic Qualified Code(s): I48.2 - Chronic atrial fibrillation Is this a current diagnosis for this admission?: Yes (5) COPD (chronic obstructive pulmonary disease) Qualifiers: COPD type: unspecified COPD Qualified Code(s): J44.9 - Chronic obstructive pulmonary disease, unspecified Is this a current diagnosis for this admission?: Yes (6) HTN (hypertension) Qualifiers: Hypertension type: essential hypertension Qualified Code(s): I10 - Essential (primary) hypertension Is this a current diagnosis for this admission?: Yes (7) Hyperlipidemia Qualifiers: Hyperlipidemia type: unspecified Qualified Code(s): E78.5 - Hyperlipidemia , unspecified Is this a current diagnosis for this admission?: Yes - Notes Notes: Will stop Cardizem because of bradycardia. Will switch patient to metoprolol succinate and increase to 25 mg p.o. twice daily as tolerated. Patient severely debilitated. Patient will benefit from physical therapy. This was explained to patient's . Congestive heart failure: This is felt to be systolic plus diastolic, acute on chronic. Most likely precipitated by pneumonia, possible aspiration. Continue IV diuretics and COLLINS inhibitor and beta-joya. May consider switch to metoprolol succinate, bisoprolol or carvedilol. Pneumonia: Chest x-ray reviewed shows right-sided basilar pneumonia. Possibly aspiration related. Agree with antibiotic therapy. Acute on chronic respiratory failure with hypoxemia: Continue with oxygen supplementation. Atrial fibrillation: Chronic. Patient has history of falls therefore some contraindication for chronic Coumadin therapy or other anticoagulation therapy. But this would need to be reassessed on a periodic basis. COPD: Currently is stable continue bronchodilator and other supportive management. Hypertension: Blood pressure under satisfactory control. Continue current regimen. Dyslipidemia: Continue statin therapy or other antilipid therapy. - Time Time with patient: Greater than 35 minutes - CODE STATUS was discussed, patient remains DNR. Surrogate decision-maker unchanged. Multiple medical problems were addressed. More than 50% of the time spent coordinating care, discussing management plans with involved caregivers. Management plans discussed with involved personnels. Medical decision making was of moderate to high complexity , patient's has multiple comorbidities. Medications reviewed and adjusted accordingly: Yes
[2018-03-06] MEDS: FLUTICASONE NASAL SPRAY 50 MCG/SPRY 120 SPRAY/16 GM NASL SCH (11:58)
[2018-03-06] MEDS: METOPROLOL SUCCINATE 25 MG TAB.SR.24H PO SCH (21:19)
[2018-03-06] MEDS: ATORVASTATIN CALCIUM 20 MG TABLET PO SCH (21:19)
[2018-03-07] MEDS: PIPERACILLIN SODIUM/TAZOBACTAM 3.375 GM in NORMAL SALINE 100 ML IV SCH (02:18)
[2018-03-07] MEDS: LANSOPRAZOLE 30 MG TAB.RAP.DR PO SCH (05:15)
[2018-03-07 06:29] LABS: ANION GAP 10 (5-19); BLOOD UREA NITROGEN 24 mg/dL (7-20); CALCIUM 8.3 mg/dL (8.4-10.2); CARBON DIOXIDE 30 mmol/L (22-30); CHLORIDE 108 mmol/L (98-107); GLUCOSE 91 mg/dL (75-110); POTASSIUM 3.5 mmol/L (3.6-5.0); SODIUM 148.3 mmol/L (137-145)
[2018-03-07 06:51] LABS: ABSOLUTE EOSINOPHILS # (AUTO) 0.4 10^3/uL (0.0-0.6); ABSOLUTE LYMPHOCYTES (AUTO) 1.2 10^3/uL (0.5-4.7); ABSOLUTE MONOCYTES (AUTO) 0.5 10^3/uL (0.1-1.4); ABSOLUTE NEUT (AUTO) 3.5 10^3/uL (1.7-8.2); BASOPHILS % (AUTO) 0.6 % (0-2); EOSINOPHILS % (AUTO) 6.9 % (0-6); HEMATOCRIT 35.7 % (37.9-51.0); HEMOGLOBIN 11.7 g/dL (13.5-17.0); LYMPHOCYTES % (AUTO) 20.6 % (13-45); MEAN CORPUSCULAR HEMOGLOBIN 30.9 pg (27.0-33.4); MEAN CORPUSCULAR HGB CONC 32.9 g/dL (32.0-36.0); MEAN CORPUSCULAR VOLUME 94 fl (80-97); MONOCYTES % (AUTO) 9.7 % (3-13); PLATELET COUNT 191 10^3/uL (150-450); RED CELL DISTRIBUTION WIDTH 15.6 % (11.5-14.0); SEGMENTED NEUTROPHILS % (AUTO) 62.2 % (42-78); TOTAL CELLS COUNTED % (AUTO) 100 %; WHITE BLOOD COUNT 5.6 10^3/uL (4.0-10.5)
[2018-03-07] MEDS ORDERED: ALBUTEROL SULFATE HFA (90 MCG/PUFF) 200 PUFF/8.5 GM MDI IH PRN (08:15)
--- NOTE | 2018-03-07 08:20 | PDOC PROGRESS REPORT ---
Subjective Progress Note for:: 03/07/18 Subjective:: The patient states to feel better. He is tolerating medications well. He denies any shortness of breath or cough Reason For Visit: HEART FAILURE/PNA Physical Exam Vital Signs: Temp Pulse Resp BP Pulse Ox 98.5 F 77 24 H 109/57 L 98 03/07/18 07:06 03/07/18 07:06 03/07/18 07:06 03/07/18 07:06 03/07/18 07:06 Intake & Output 03/06/18 03/07/18 03/08/18 06:59 06:59 06:59 Intake Total 855 1269 Output Total 1800 9065 Balance -945 -625 Weight 52.2 kg 51.2 kg General appearance: PRESENT: mild distress Head exam: PRESENT: atraumatic Eye exam: PRESENT: conjunctiva pink Neck exam: PRESENT: carotid bruit. ABSENT: JVD Respiratory exam: PRESENT: crackles, rhonchi Cardiovascular exam: PRESENT: irregular rhythm, +S1, +S2 Pulses: PRESENT: +1 pedal pulses bilateral Extremities exam: PRESENT: tenderness Musculoskeletal exam: PRESENT: tenderness Neurological exam: PRESENT: awake Results Laboratory Results: 03/07/18 05:45 03/07/18 05:45 03/07/18 03/07/18 05:45 05:45 WBC 5.6 RBC 3.80 L Hgb 11.7 L Hct 35.7 L MCV 94 MCH 30.9 MCHC 32.9 RDW 15.6 H Plt Count 191 Seg Neutrophils % 62.2 Lymphocytes % 20.6 Monocytes % 9.7 Eosinophils % 6.9 H Basophils % 0.6 Absolute Neutrophils 3.5 Absolute Lymphocytes 1.2 Absolute Monocytes 0.5 Absolute Eosinophils 0.4 Absolute Basophils 0.0 Sodium 148.3 H Potassium 3.5 L Chloride 108 H Carbon Dioxide 30 Anion Gap 10 BUN 24 H Creatinine 1.11 Est GFR ( Amer) > 60 Est GFR (Non-Af Amer) > 60 Glucose 91 Calcium 8.3 L Magnesium 2.0 03/06/18 05:59 NT-Pro-B Natriuret Pep 6340 H Impressions: Chest X-Ray 03/04/18 19:11 IMPRESSION: NEW RIGHT LOWER LOBE AIRSPACE DISEASE PRESUMABLY REPRESENTING PNEUMONIA. RECOMMEND FOLLOWUP RADIOGRAPHS 4 TO 6 WEEKS TO ENSURE RESOLUTION. Assessment & Plan - Diagnosis (1) A-fib Qualifiers: Atrial fibrillation type: chronic Qualified Code(s): I48.2 - Chronic atrial fibrillation Is this a current diagnosis for this admission?: Yes Plan: Continue metoprolol instead of Cardizem as recommended by cardiology (2) Acute pulmonary edema Is this a current diagnosis for this admission?: Yes Plan: Improved we will continue the diuretics p.o. (3) Pneumonia Qualifiers: Laterality: right Is this a current diagnosis for this admission?: Yes Plan: We will stop the piperacillin and continue with Levaquin p.o. (4) Acute and chronic respiratory failure with hypoxia Is this a current diagnosis for this admission?: Yes Plan: Continue current nebulization treatments (5) CKD (chronic kidney disease), stage III Is this a current diagnosis for this admission?: Yes Plan: Improved with rehydration (6) DNR (do not resuscitate) Is this a current diagnosis for this admission?: Yes Plan: Continue DNR status (7) Diabetes mellitus Qualifiers: Diabetes mellitus type: type 2 Is this a current diagnosis for this admission?: Yes Plan: Continue current treatment
[2018-03-07] MEDS ORDERED: (PENDING PHARMACY ID) (Mirabegron [Myrbetriq] 50 MG) PO SCH (10:00)
[2018-03-07] MEDS: ENOXAPARIN SODIUM INJ 40 MG/0.4 ML DISP.SYRIN SUBCUT SCH (10:01)
[2018-03-07] MEDS: METOPROLOL SUCCINATE 25 MG TAB.SR.24H PO SCH ×2 (10:01→21:14)
[2018-03-07] MEDS: LISINOPRIL 10 MG TABLET PO SCH ×2 (10:02→21:15)
[2018-03-07] MEDS: LACTOBACILLUS ACIDOPHILUS 250 MG TAB PO SCH ×2 (10:02→17:14)
[2018-03-07] MEDS: POTASSIUM CHLORIDE 10 MEQ TABLET.SA PO SCH ×2 (10:02→17:14)
[2018-03-07] MEDS: LEVOFLOXACIN 500 MG TABLET PO SCH (10:03)
[2018-03-07] MEDS: FUROSEMIDE 40 MG TABLET PO SCH ×2 (10:03→17:14)
[2018-03-07] MEDS: FLUTICASONE NASAL SPRAY 50 MCG/SPRY 120 SPRAY/16 GM NASL SCH (10:04)
--- NOTE | 2018-03-07 14:15 | ST Inp Modified Barium Swallow ---
Medical Diagnosis - Medical Diagnoses Medical Diagnosis Description & ICD-10 Code(s): dysphagia - ICD-10 Tx Diagnosis Coding (1) Dysphagia, oral phase ICD-10 Code(s): R13.11 - DYSPHAGIA, ORAL PHASE (2) Dysphagia, pharyngeal phase ICD-10 Code(s): R13.13 - DYSPHAGIA, PHARYNGEAL PHASE (3) A-fib ICD-10 Code(s): I48.91 - UNSPECIFIED ATRIAL FIBRILLATION (4) Acute pulmonary edema ICD-10 Code(s): J81.0 - ACUTE PULMONARY EDEMA (5) CHF exacerbation ICD-10 Code(s): I50.9 - HEART FAILURE, UNSPECIFIED (6) Pneumonia ICD-10 Code(s): J18.9 - PNEUMONIA, UNSPECIFIED ORGANISM (7) Acute and chronic respiratory failure with hypoxia ICD-10 Code(s): J96.21 - ACUTE AND CHRONIC RESPIRATORY FAILURE WITH HYPOXIA (9) Oropharyngeal dysphagia ICD-10 Code(s): R13.12 - DYSPHAGIA, OROPHARYNGEAL PHASE (11) Diabetes mellitus ICD-10 Code(s): E11.9 - TYPE 2 DIABETES MELLITUS WITHOUT COMPLICATION[address] Inpatient MBS - General Date: 03/07/18 Date of Onset: 03/04/18 - History History Obtained From: Family, Other - EMR -: Medical - Patient admitted 03/04/18. Current diagnoses include a-fib, acute pulmonary edema, pneumonia, acute & chronic respiratory failure with hypoxemia, chronic kidney disease, diabetes. Prior medical history includes dementia, COPD , and history of CVA. Patient had MBSS 02/04/16 with recommendations for thin liquids by spoon sip only and mechanical soft cut meats; noted high risk of aspiration and residuals with thicker consistencies. Also previous MBSS in 2012. Patient's son present during study and reports patient had his throat stretched several times in the past. Medications: Medications Reviewed Allergies: Refer to medical record - Subjective Current Nutritional Means: PO Current Symptoms: Coughing Pain: Patient reports, 0/5, denies pain - Objective Assessment: Upright, Left Lateral - Food Trials Food Trials Used: Thin liquids, Honey-thickened liquids, Cullen thick liquids, Pureed The Patient: fed by ST, via cup, via spoon - Assessment Labial Function: Impaired Lingual Function: Impaired Mandibular Function: Within Functional Limits Dentition: Edentulous Velo-Pharyngeal Function: Not assessed Laryngeal Function: hoarse - Pharyngeal Stage Initiation of Pharyngeal Stage: Delayed Decreased Laryngeal Elevation: Yes Reduced Velo-Pharyngeal Closure: no Reduced Pressure Generation: Yes Reduced Tongue Base Retraction: Yes Pre-Swallowing Pooling in Valleculae: Mild Pre-Swallowing Pooling in Pyriforms: None Reduced Thyro-Hyiod Approximation: Yes Reduced Epiglottic Excursion: Yes Reduced Pharyngeal Peristalsis: Yes Multiple Swallows With: Ineffective Clearance - moderate reisduals with puree, cleared with honey thick liquid wash & repeat swallow Post Swallow Residuals in Valleculae: Moderate Post Swallow Residuals in Pyriforms: None - Impression/Summary Laryngeal Penetration: Yes Tracheal Aspiration: yes, silent, during swallow, after swallow Productive Cough: No Effective Clearing: no Patient Presents With: Oral stage dysphagia, Pharyngeal stage dysph., Oral- Pharyngeal dysph., Severe Risk of Aspiration: Severe Risk of Nutritional Compromise: Severe - Recommendations Solid Diet Recommendations: Pureed Liquid Diet Recommendations: Honey-Thick - by spoon only Strict Aspitarion Precautions: Yes Dysphagia Therapy with CROTCH BREAKER: Yes - SNF - patient's son reports expected to discharge to [facility] tomorrow Recommended Techniques: Fully Upright During Meal, Dry Swallow After Bite - for purees, Small Bites and Sips, Alternate Bites/Sips Supervision: requires assistance Other Recommendations: Patient presents with severe dysphagia characterized by silent aspiration, moderate residuals in vallecula. Noted severely reduced tongue base movement, pharyngeal peristalsis. Also noted reduced laryngeal excursion and reduced epiglottic movement. RECOMMENDATIONS: 1. Honey thick liquids by SPOON SIP only. 2. Pureed solids. 3. Small bites & sips. 4. Alternate bites & sips. 5. Fully upright during meals & whenever eating/ drinking. 6. Cough and re-swallow (will need to be cued by feeder) every 3-4 bites. 7. Recommend speech therapy for dysphagia after discharge from hospital. CROTCH BREAKER provide written education on dysphagia, recommendations, and thickened liquids to family. CROTCH BREAKER contacted [facility] after study and communicated recommendations. - Time Total Time: 20 Total Timed Minutes: 0 ST F.L. Impairment Category - Rationale Based On Rationale Based On: Clin Find., Obj Measures - Swallowing Current G8996: CL 60-79% Impaired Goal G8997: CL 60-79% Impaired Discharge G8998: CL 60-79% Impaired
--- NOTE | 2018-03-07 15:34 | RADIOLOGY REPORT (SQ) ---
EXAM DESCRIPTION: COOKIE SWALLOW COMPLETED DATE/TIME: 03/07/2018 1:51 pm REASON FOR STUDY: coughing while swallowing/eating COMPARISON: Modified barium swallow 02/04/2016. TECHNIQUE: Videofluoroscopic swallowing examination was performed in conjunction with speech patholo gy. Videofluoroscopic imaging was obtained and reviewed and these are the findings: RADIATION DOSE: 1 minutes 3 seconds of fluoroscopy was used. 1 images saved to PACS. LIMITATIONS: None FINDINGS: The patient was brought into the fluoro room and placed upright on a modified barium swall ow chair. The patient was then given multiple consistencies mixed with barium to swallow under live fluoroscopic video guidance. According to the Speech Pathologist there was laryngeal penetration and aspiration of thin and nectar thick liquids. There is penetration of post swallow residual contrast from the vallecular. IMPRESSION: LARYNGEAL PENETRATION AND ASPIRATION OF THIN AND NECTAR THICK LIQUIDS. PLEASE SEE SPEECH PATHOLOGIST REPORT FOR OTHER FINDINGS AND RECOMMENDATIONS. COMMENT: Quality ID [id number]: Final reports for procedures using fluoroscopy that document radiation exp osure indices, or exposure time and number of fluorographic images (if radiation exposure indices are not available) TECHNICAL DOCUMENTATION: JOB ID: [id number] [employer]- All Rights Reserved Reading location - IP/workstation name: [id number]
--- NOTE | 2018-03-07 20:24 | PDOC PROGRESS REPORT ---
Subjective Progress Note for:: 03/07/18 Subjective:: Patient had a swallowing evaluation which was positive for aspiration. Patient seen today in the afternoon, with patient's son and at bedside. They are telling me that he is likely to be discharged to a rehab facility. Patient seems to be doing better with significant improvement. Pt is denying any chest arm or neck discomfort. Patient denying any PND, orthopnea. Patient denied any sustained palpitations, dizziness, syncope, near syncope. Patient denying any fever chills. Patient denying any other significant discomfort. Patient is maintaining atrial fibrillation: Heart rate is well controlled. Review of systems: Rest review of systems negative. Medications: Medications have been reviewed. Reason For Visit: HEART FAILURE/PNA Physical Exam Vital Signs: Temp Pulse Resp BP Pulse Ox 97.4 F 91 16 124/74 100 03/07/18 19:31 03/07/18 20:03 03/07/18 19:31 03/07/18 19:31 03/07/18 19:31 Intake & Output 03/06/18 03/07/18 03/08/18 06:59 06:59 06:59 Intake Total 855 1269 575 Output Total 1800 1825 500 Balance -945 -556 75 Weight 52.2 kg 51.2 kg Exam: GENERAL: Thin built but in no acute distress. Alert and oriented x3 HEAD: Atraumatic, normocephalic. EYES: Pupils equal round and reactive to light, extraocular movements intact, sclera anicteric, conjunctiva are normal. ENT: TMs normal, nares patent, oropharynx clear without exudates. Moist mucous membranes. No oral ulcerations or bleeding gums noted NECK: supple without lymphadenopathy. Trachea is central. No cervical or axillary lymphadenopathy noted. Carotids are 2+, JVD WNL LUNGS: Respiration seems nonlabored, no significant accessory muscle action noted. Bibasilar crackles right more than left and few scattered wheezing noted. No significant dullness noted on percussion. CHEST: Palpation of the chest wall shows no significant chest wall tenderness. 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 ABDOMEN: Soft, no significant tenderness appreciated, normoactive bowel sounds. No guarding, no rebound. No rigidity noted . No masses appreciated. EXTREMITIES: Pedal pulses are 1-2+, no calf tenderness noted. No clubbing or cyanosis. negative pedal edema noted NEUROLOGICAL: Focused neurological exam showed no significant neurologic deficit. Normal speech, no focal weakness appreciated. PSYCH: Normal mood, normal affect. Judgment and insight within normal limits. SKIN: No significant ecchymosis, skin is noted to be warm. MUSCULOSKELETAL EXAM: No significant acute joint swelling noted. Results Laboratory Results: 03/07/18 05:45 03/07/18 05:45 03/07/18 03/07/18 05:45 05:45 WBC 5.6 RBC 3.80 L Hgb 11.7 L Hct 35.7 L MCV 94 MCH 30.9 MCHC 32.9 RDW 15.6 H Plt Count 191 Seg Neutrophils % 62.2 Lymphocytes % 20.6 Monocytes % 9.7 Eosinophils % 6.9 H Basophils % 0.6 Absolute Neutrophils 3.5 Absolute Lymphocytes 1.2 Absolute Monocytes 0.5 Absolute Eosinophils 0.4 Absolute Basophils 0.0 Sodium 148.3 H Potassium 3.5 L Chloride 108 H Carbon Dioxide 30 Anion Gap 10 BUN 24 H Creatinine 1.11 Est GFR ( Amer) > 60 Est GFR (Non-Af Amer) > 60 Glucose 91 Calcium 8.3 L Magnesium 2.0 03/06/18 05:59 NT-Pro-B Natriuret Pep 6340 H EKG Comments: Shows atrial fibrillation with relatively controlled heart rate response. Impressions: Chest X-Ray 03/04/18 19:11 IMPRESSION: NEW RIGHT LOWER LOBE AIRSPACE DISEASE PRESUMABLY REPRESENTING PNEUMONIA. RECOMMEND FOLLOWUP RADIOGRAPHS 4 TO 6 WEEKS TO ENSURE RESOLUTION. Modified Barium Swallow 03/07/18 00:00 IMPRESSION: LARYNGEAL PENETRATION AND ASPIRATION OF THIN AND NECTAR THICK LIQUIDS. PLEASE SEE SPEECH PATHOLOGIST REPORT FOR OTHER FINDINGS AND RECOMMENDATIONS. Assessment & Plan - Diagnosis (2) Pneumonia Qualifiers: Laterality: right Is this a current diagnosis for this admission?: Yes (3) Acute and chronic respiratory failure with hypoxia Is this a current diagnosis for this admission?: Yes (4) A-fib Qualifiers: Atrial fibrillation type: chronic Qualified Code(s): I48.2 - Chronic atrial fibrillation Is this a current diagnosis for this admission?: Yes (5) COPD (chronic obstructive pulmonary disease) Qualifiers: COPD type: unspecified COPD Qualified Code(s): J44.9 - Chronic obstructive pulmonary disease, unspecified Is this a current diagnosis for this admission?: Yes (6) HTN (hypertension) Qualifiers: Hypertension type: essential hypertension Qualified Code(s): I10 - Essential (primary) hypertension Is this a current diagnosis for this admission?: Yes (7) Hyperlipidemia Qualifiers: Hyperlipidemia type: unspecified Qualified Code(s): E78.5 - Hyperlipidemia , unspecified Is this a current diagnosis for this admission?: Yes - Notes Notes: Patient currently not on chronic anticoagulation for atrial fibrillation because of history of fall and previously because of platelet count being too low. Medication changes performed yesterday is being well-tolerated. Will follow 1 more day. Patient severely debilitated. Patient will benefit from physical therapy. This was explained to patient's . Patient to be discharged to a rehab center, SNF. Congestive heart failure: This is felt to be systolic plus diastolic, acute on chronic. Most likely precipitated by pneumonia, possible aspiration. Continue baseline diuretics and COLLINS inhibitor and beta-joya. May consider switch to metoprolol succinate, bisoprolol or carvedilol. Pneumonia: Chest x-ray reviewed shows right-sided basilar pneumonia. Likely aspiration related. Agree with antibiotic therapy. Acute on chronic respiratory failure with hypoxemia: Continue with oxygen supplementation. Atrial fibrillation: Chronic. Patient has history of falls therefore some contraindication for chronic Coumadin therapy or other anticoagulation therapy. But this would need to be reassessed on a periodic basis. COPD: Currently is stable continue bronchodilator and other supportive management. Hypertension: Blood pressure under satisfactory control. Continue current regimen. Dyslipidemia: Continue statin therapy or other antilipid therapy. - Time Time with patient: 15-25 minutes - CODE STATUS : was discussed, patient remains DO NOT RESUSCITATE. Surrogate decision-maker unchanged. Multiple medical problems were addressed. More than 50% of the time spent coordinating care, discussing management plans with involved caregivers. Management plans discussed with involved personnels. Medical decision making was of moderate to high complexity, patient's has multiple comorbidities. Medications reviewed and adjusted accordingly: Yes
[2018-03-07] MEDS: ATORVASTATIN CALCIUM 20 MG TABLET PO SCH (21:15)
[2018-03-08] MEDS: LANSOPRAZOLE 30 MG TAB.RAP.DR PO SCH (05:07)
[2018-03-08] MEDS ORDERED: LANSOPRAZOLE 15 MG TAB.RAP.DR PO SCH (06:00)
[2018-03-08 06:02] LABS: ANION GAP 10 (5-19); BLOOD UREA NITROGEN 28 mg/dL (7-20); CALCIUM 8.6 mg/dL (8.4-10.2); CARBON DIOXIDE 30 mmol/L (22-30); CHLORIDE 106 mmol/L (98-107); GLUCOSE 100 mg/dL (75-110); SODIUM 145.8 mmol/L (137-145)
--- NOTE | 2018-03-08 08:19 | PDOC TRANSFER SUMMARY ---
General - Admit/Disc Date/PCP Admission Date/Primary Care Provider: 03/04/18 20:43 RAMANDEEP RAMSEY, Discharge Date: 03/08/18 - Discharge Diagnosis (1) A-fib Is this a current diagnosis for this admission?: Yes Summary: Stable continue current treatment with metoprolol. (2) Acute pulmonary edema Is this a current diagnosis for this admission?: Yes Summary: Resolved with diuretics. Continue Lasix 40 mg twice a day and potassium 10 mEq twice a day. Low-salt cardiac diet (3) Pneumonia Is this a current diagnosis for this admission?: Yes Summary: Improved we will continue with Levaquin (4) Acute and chronic respiratory failure with hypoxia Is this a current diagnosis for this admission?: Yes (5) CKD (chronic kidney disease), stage III Is this a current diagnosis for this admission?: Yes Summary: Much improved with rehydration (6) DNR (do not resuscitate) Is this a current diagnosis for this admission?: Yes Summary: Continue DNR status (7) Diabetes mellitus Is this a current diagnosis for this admission?: Yes Summary: Continue diabetic diet (8) History of stroke Is this a current diagnosis for this admission?: Yes Summary: Possible cause of aspirations will need a speech therapy and recommendations on oral intake (9) Aspiration into lower respiratory tract Is this a current diagnosis for this admission?: Yes Summary: Continue recommendation by speech therapy (10) COPD (chronic obstructive pulmonary disease) Is this a current diagnosis for this admission?: Yes Summary: Continue nebulization treatments - Additional Information Resuscitation Status: Do Not Resuscitate Discharge Diet: Cardiac Discharge Activity: Activity As Tolerated, Balance Activity w/Rest, Weigh Daily Home Medications: Alendronate Sodium [Fosamax "Weekly" 35 mg Tablet] 35 mg PO MO@0800 11/07/17 Atorvastatin Calcium [Lipitor 20 mg Tablet] 20 mg PO QHS 11/07/17 Fluticasone Propionate [Flonase Nasal [place] 50 Mcg/[place] 16 gm] 1 spray NASL DAILY 11/07/17 Furosemide [Lasix 40 mg Tablet] 40 mg PO BID 11/07/17 Iron Ps Complex/B12/Folic Acid [Poly-Iron 150 Forte Capsule] 1 cap PO BID Omeprazole 20 mg PO ACBRKFST 11/07/17 Potassium Chloride [Klor-Con 10 Meq Tablet.sa] 10 meq PO BID 11/07/17 Albuterol Sulfate [Proair HFA Inhalation Aerosol 8.5 gm MDI] 1 puff IH Q6HP PRN 03/05/18 Mirabegron [Myrbetriq] 50 mg PO DAILY 03/05/18 Levofloxacin [Levaquin 500 mg Tablet] 500 mg PO DAILY #7 tablet 03/08/18 Lisinopril [Prinivil 10 mg Tablet] 5 mg PO Q12 tablet 03/08/18 Metoprolol Succinate [Toprol Xl 25 mg Tab.sr] 25 mg PO Q12 tab.sr.24h 03/08/18 History of Present Illness Admission Date/PCP: 03/04/18 20:43 RAMANDEEP RAMSEY, History of Present Illness: STACIA ANNE is a 87 year old male Hospital Course Hospital Course: The patient was admitted with an acute respiratory failure most probably related to the combination of fluid overload and questionable pneumonia. He was treated aggressively with diuretics IV and IV antibiotics with significant improvement in his symptomatology. Unfortunately the patient does have some aspiration issues because of the previous stroke and there is some recommendation by speech therapy on his food intake. Because of patient debility the recommendation has been made for the patient to go to the rehab and received physical therapy occupational and speech therapy. On the day of discharge the patient appeared to be comfortable in no acute distress all of his medications have been readjusted. He was seen by the cardiology and metoprolol was increased to 25 mg twice a day and lisinopril has been decreased to 5 mg twice a day Physical Exam Vital Signs: Temp Pulse Resp BP Pulse Ox 97.8 F 71 16 117/52 L 100 03/08/18 03:31 03/08/18 03:31 03/08/18 03:31 03/08/18 03:31 03/08/18 03:31 Intake & Output 03/07/18 03/08/18 03/09/18 06:59 06:59 06:59 Intake Total 1269 905 Output Total 1825 500 Balance -556 405 Weight 51.2 kg 52.7 kg General appearance: PRESENT: no acute distress Head exam: PRESENT: atraumatic Eye exam: PRESENT: conjunctiva pink Neck exam: ABSENT: carotid bruit, JVD Respiratory exam: PRESENT: crackles, rhonchi Cardiovascular exam: PRESENT: irregular rhythm, +S1, +S2 Pulses: PRESENT: +1 pedal pulses bilateral GI/Abdominal exam: PRESENT: normal bowel sounds, soft Musculoskeletal exam: PRESENT: other Neurological exam: PRESENT: awake Results Laboratory Results: 03/07/18 05:45 03/08/18 05:17 03/08/18 05:17 Sodium 145.8 H Potassium 4.0 Chloride 106 Carbon Dioxide 30 Anion Gap 10 BUN 28 H Creatinine 0.97 Est GFR ( Amer) > 60 Est GFR (Non-Af Amer) > 60 Glucose 100 Calcium 8.6 Magnesium 2.1 03/06/18 05:59 NT-Pro-B Natriuret Pep 6340 H Impressions: Chest X-Ray 03/04/18 19:11 IMPRESSION: NEW RIGHT LOWER LOBE AIRSPACE DISEASE PRESUMABLY REPRESENTING PNEUMONIA. RECOMMEND FOLLOWUP RADIOGRAPHS 4 TO 6 WEEKS TO ENSURE RESOLUTION. Modified Barium Swallow 03/07/18 00:00 IMPRESSION: LARYNGEAL PENETRATION AND ASPIRATION OF THIN AND NECTAR THICK LIQUIDS. PLEASE SEE SPEECH PATHOLOGIST REPORT FOR OTHER FINDINGS AND RECOMMENDATIONS. Qualifiers - * PATIENT BEING DISCHARGED WITH ANY OF THE FOLLOWING DIAGNOSIS: Heart Failure VTE patient discharged on overlapping Therapy?: No Reason(s) for not prescribing Overlap Therapy:: Medical Contraindication HF Pt being discharged on ACEI for LVEF less than 40%?: Yes HF Pt being discharged on ARBS for LVEF less than 40%?: Yes HF Pt with Afib discharged with Warfarin?: No Reason(s) for not prescribing Warfarin:: Medical Contraindication HF Pt discharged on evidence-based Beta Elvia:: Yes
[2018-03-08] MEDS: FUROSEMIDE 40 MG TABLET PO SCH (09:45)
[2018-03-08] MEDS: FLUTICASONE NASAL SPRAY 50 MCG/SPRY 120 SPRAY/16 GM NASL SCH (09:45)
[2018-03-08] MEDS: ENOXAPARIN SODIUM INJ 40 MG/0.4 ML DISP.SYRIN SUBCUT SCH (09:45)
[2018-03-08] MEDS: LISINOPRIL 10 MG TABLET PO SCH (09:46)
[2018-03-08] MEDS: LEVOFLOXACIN 500 MG TABLET PO SCH (09:46)
[2018-03-08] MEDS: POTASSIUM CHLORIDE 10 MEQ TABLET.SA PO SCH (09:46)
[2018-03-08] MEDS: METOPROLOL SUCCINATE 25 MG TAB.SR.24H PO SCH (09:46)
[2018-03-08] MEDS: LACTOBACILLUS ACIDOPHILUS 250 MG TAB PO SCH (09:47)
--- NOTE | 2018-03-08 11:53 | PDOC PROGRESS REPORT ---
Subjective Progress Note for:: 03/08/18 Subjective:: Patient seems to be doing better with significant improvement. Pt is denying any chest arm or neck discomfort. Patient denying any PND, orthopnea. Patient denied any sustained palpitations, dizziness, syncope, near syncope. Patient denying any fever chills. Patient denying any other significant discomfort. Patient is maintaining atrial fibrillation, heart rate has been stable for last 24-36 hours. Patient has maintained stable blood pressure and vitals. Review of systems: Rest review of systems negative. Medications: Medications have been reviewed. Reason For Visit: HEART FAILURE/PNA Physical Exam Vital Signs: Temp Pulse Resp BP Pulse Ox 97.9 F 78 16 116/63 100 03/08/18 08:52 03/08/18 08:52 03/08/18 08:52 03/08/18 08:52 03/08/18 08:52 Intake & Output 03/07/18 03/08/18 03/09/18 06:59 06:59 06:59 Intake Total 1269 905 Output Total 1825 500 Balance -556 405 Weight 51.2 kg 52.7 kg Exam: GENERAL: well-nourished and in no acute distress. Alert and oriented x2 HEAD: Atraumatic, normocephalic. EYES: Pupils equal round and reactive to light, extraocular movements intact, sclera anicteric, conjunctiva are normal. ENT: TMs normal, nares patent, oropharynx clear without exudates. Moist mucous membranes. No oral ulcerations or bleeding gums noted NECK: supple without lymphadenopathy. Trachea is central. No cervical or axillary lymphadenopathy noted. Carotids are 2+, JVD WNL LUNGS: Respiration seems nonlabored, no significant accessory muscle action noted. Few right basilar crackles are noted. No wheezes rales or rhonchi noted. No significant dullness noted on percussion. CHEST: Palpation of the chest wall shows no significant chest wall tenderness. 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 ABDOMEN: Soft, no significant tenderness appreciated, normoactive bowel sounds. No guarding, no rebound. No rigidity noted . No masses appreciated. EXTREMITIES: Pedal pulses are 1-2+, no calf tenderness noted. No clubbing or cyanosis. negative pedal edema noted NEUROLOGICAL: Focused neurological exam showed no significant neurologic deficit. Normal speech, no focal weakness appreciated. PSYCH: Normal mood, normal affect. Judgment and insight not checked. SKIN: No significant ecchymosis, skin is noted to be warm. MUSCULOSKELETAL EXAM: No significant acute joint swelling noted. Results Laboratory Results: 03/07/18 05:45 03/08/18 05:17 03/08/18 05:17 Sodium 145.8 H Potassium 4.0 Chloride 106 Carbon Dioxide 30 Anion Gap 10 BUN 28 H Creatinine 0.97 Est GFR ( Amer) > 60 Est GFR (Non-Af Amer) > 60 Glucose 100 Calcium 8.6 Magnesium 2.1 03/06/18 05:59 NT-Pro-B Natriuret Pep 6340 H EKG Comments: Atrial fibrillation with controlled ventricular response Impressions: Chest X-Ray 03/04/18 19:11 IMPRESSION: NEW RIGHT LOWER LOBE AIRSPACE DISEASE PRESUMABLY REPRESENTING PNEUMONIA. RECOMMEND FOLLOWUP RADIOGRAPHS 4 TO 6 WEEKS TO ENSURE RESOLUTION. Modified Barium Swallow 03/07/18 00:00 IMPRESSION: LARYNGEAL PENETRATION AND ASPIRATION OF THIN AND NECTAR THICK LIQUIDS. PLEASE SEE SPEECH PATHOLOGIST REPORT FOR OTHER FINDINGS AND RECOMMENDATIONS. Assessment & Plan - Diagnosis (2) Pneumonia Qualifiers: Laterality: right Is this a current diagnosis for this admission?: Yes (3) Acute and chronic respiratory failure with hypoxia Is this a current diagnosis for this admission?: Yes (4) A-fib Qualifiers: Atrial fibrillation type: chronic Qualified Code(s): I48.2 - Chronic atrial fibrillation Is this a current diagnosis for this admission?: Yes (5) COPD (chronic obstructive pulmonary disease) Qualifiers: COPD type: unspecified COPD Qualified Code(s): J44.9 - Chronic obstructive pulmonary disease, unspecified Is this a current diagnosis for this admission?: Yes (6) HTN (hypertension) Qualifiers: Hypertension type: essential hypertension Qualified Code(s): I10 - Essential (primary) hypertension Is this a current diagnosis for this admission?: Yes (7) Hyperlipidemia Qualifiers: Hyperlipidemia type: unspecified Qualified Code(s): E78.5 - Hyperlipidemia , unspecified Is this a current diagnosis for this admission?: Yes - Notes Notes: . Congestive heart failure: This is felt to be systolic plus diastolic, acute on chronic. Most likely precipitated by pneumonia, possible aspiration. Currently resolved. Patient overall seems to be on a good regimen. Patient has been switched to p.o. diuretics. Patient has been on a stable regimen for last 24 hours. Pneumonia: Chest x-ray reviewed shows right-sided basilar pneumonia. Possibly aspiration related. Agree with antibiotic therapy. This seems to have improved clinically. Acute on chronic respiratory failure with hypoxemia: Continue with oxygen supplementation. Atrial fibrillation: Chronic. Patient has history of falls therefore some contraindication for chronic Coumadin therapy or other anticoagulation therapy. But this would need to be reassessed on a periodic basis. Patient also tells me that patient had problems with low platelet counts in the past COPD: Currently is stable continue bronchodilator and other supportive management. Hypertension: Blood pressure under satisfactory control. Continue current regimen. Intermittent low blood pressure noted previously, lisinopril dose has been reduced. Dyslipidemia: Continue statin therapy or other antilipid therapy. - Time Time with patient: 15-25 minutes - Patient noted to be stable for discharge. He has been stable from cardiac standpoint. Will sign off. Please reconsult if needed. Medications reviewed and adjusted accordingly: Yes
[2018-03-08 12:51] VITALS: BP 113/74
== END 2018-03-08 14:58 | DRG 291 ==
LOC: ER 19:07 → EH 20:43 → 3S 03-05 14:04
PROVIDERS: ADMIT Internal Medicine; ATTEND Internal Medicine
DX: I13.0 Hypertensive heart and chronic kidney disease with heart failure and stage 1 through stage 4 chronic kidney disease, or unspecified chronic kidney disease (principal); J96.21 Acute and chronic respiratory failure with hypoxia; I50.43 Acute on chronic combined systolic (congestive) and diastolic (congestive) heart failure; J69.0 Pneumonitis due to inhalation of food and vomit; Z66 Do not resuscitate; I16.1 Hypertensive emergency; E46 Unspecified protein-calorie malnutrition; E87.1 Hypo-osmolality and hyponatremia; I69.351 Hemiplegia and hemiparesis following cerebral infarction affecting right dominant side; J44.9 Chronic obstructive pulmonary disease, unspecified; I48.2 Chronic atrial fibrillation; E78.00 Pure hypercholesterolemia, unspecified; N18.3 Chronic kidney disease, stage 3 (moderate); E11.22 Type 2 diabetes mellitus with diabetic chronic kidney disease; Z68.21 Body mass index [BMI] 21.0-21.9, adult
CPT/HCPCS: 36415; 71045; 74230; 80048; 80053; 80061; 81001; 82550; 82553; 82565; 82962; 83036; 83735; 83880; 84100; 84484; 85025; 85027; 85610; 85730; 87040; 87077; 93005; 93010; 94660; 96365; 96375; 99291; G8996-GN; G8997-GN; G8998-GN; J1644; J1650; J1940; J1956; J2543; J3490

== ENCOUNTER 2018-03-31 12:44 | Inpatient (IN) | payer MEDICARE, BC ==
[2018-03-31] MEDS ORDERED: ACETAMINOPHEN 325 MG TABLET PO ONE (13:37)
--- NOTE | 2018-03-31 13:48 | ER Document Report ---
ED Dizziness/Weakness - General Chief Complaint: Altered Mental Status Stated Complaint: ALTERED MENTAL STATUS Time Seen by Provider: 03/31/18 13:13 TRAVEL OUTSIDE OF THE [place] IN LAST 30 DAYS: No - Related Data Allergies/Adverse Reactions: cortisone [Cortisone] Allergy (Mild, Verified 10/14/15 07:57) sugar and B/P were elevated Past Medical History - Social History Smoking Status: Unknown if Ever Smoked Family History: Hypertension Patient has suicidal ideation: No Patient has homicidal ideation: No - Past Medical History Cardiac Medical History: Reports: Hx Atrial Fibrillation, Hx Congestive Heart Failure, Hx Coronary Artery Disease, Hx Hypercholesterolemia, Hx Hypertension Pulmonary Medical History: Reports: Hx COPD, Hx Pneumonia Denies: Hx Tuberculosis Neurological Medical History: Reports: Hx Cerebrovascular Accident - weaker right side Endocrine Medical History: Reports: Hx Diabetes Mellitus Type 2 Renal/ Medical History: Denies: Hx Peritoneal Dialysis Musculoskeltal Medical History: Reports Hx Arthritis - osteoporosis Psychiatric Medical History: Denies: Hx Depression Past Surgical History: Reports: Hx Appendectomy, Hx Genitourinary Surgery - prostate surgery, Hx Orthopedic Surgery - Back, right knee, Hx Urinary Tract Surgery - bladder stimulator-interstim - Immunizations Hx Diphtheria, Pertussis, Tetanus Vaccination: - unknown Hx Pneumococcal Vaccination: 01/29/14 Physical Exam - Vital signs Vitals: Temp Pulse Resp BP Pulse Ox 102.4 F H 110 H 20 111/54 L 96 03/31/18 12:44 03/31/18 12:44 03/31/18 12:44 03/31/18 12:44 03/31/18 12:44 Course - Vital Signs Vital signs: Temp Pulse Resp BP Pulse Ox 102.4 F H 110 H 24 H 111/54 L 96 03/31/18 12:44 03/31/18 12:44 03/31/18 13:13 03/31/18 13:12 03/31/18 13:36 Discharge - Discharge Referrals: RAMANDEEP RAMSEY MD [Primary Care Provider] - Follow up as needed
--- NOTE | 2018-03-31 13:49 | ER Document Report ---
ED General <ANTONIETA MALHOTRA - Last Filed: 03/31/18 15:05> - General Mode of Arrival: Medic Information source: Relative TRAVEL OUTSIDE OF THE [place] IN LAST 30 DAYS: No <SYED GUTIERREZ - Last Filed: 04/02/18 15:28> - General Chief Complaint: Altered Mental Status Stated Complaint: ALTERED MENTAL STATUS Time Seen by Provider: 03/31/18 13:13 Notes: Patient is an 87 year old male with COPD, CHF presents to the emergency department via EMS accompanied by and son complaining of a low grade fever , weakness, confusion and continuing diarrhea onset today. states the patient was recently diagnosed with C.diff after 2 days of being placed in rehab at [facility] on March 27, 2018. Patient was seen here and discharged a few days earlier for COPD exacerbation. Patient was prescribed 125 mg Vancomycin 4x daily for 10 days to treat his C. diff. states the diarrhea never went away stating it only got a little better while on the medication, further stating she feels the diarrhea worsened since the patient stopped the medication. Son states "it seemed like his legs did not want to work " when attempting to get the patient in the shower this morning. He further states when attempting to feed the patient, he seemed more confused than normal further stating the patient was placing his hand in his oatmeal. Patient was recently seen and discharged in this emergency department 03/29/2018 due to a fall. Patient had a negative CT scan and received 2 rocky on the parieto-occipital region. (SYED GUTIERREZ) - Related Data Allergies/Adverse Reactions: cortisone [Cortisone] Allergy (Mild, Verified 10/14/15 07:57) sugar and B/P were elevated Past Medical History - Social History Smoking Status: Unknown if Ever Smoked Family History: Hypertension Patient has suicidal ideation: No Patient has homicidal ideation: No - Past Medical History Cardiac Medical History: Reports: Hx Atrial Fibrillation, Hx Congestive Heart Failure, Hx Coronary Artery Disease, Hx Hypercholesterolemia, Hx Hypertension Pulmonary Medical History: Reports: Hx COPD, Hx Pneumonia Neurological Medical History: Reports: Hx Cerebrovascular Accident - weaker right side Endocrine Medical History: Reports: Hx Diabetes Mellitus Type 2 Musculoskeltal Medical History: Reports Hx Arthritis - osteoporosis Past Surgical History: Reports: Hx Appendectomy, Hx Genitourinary Surgery - prostate surgery, Hx Orthopedic Surgery - Back, right knee, Hx Urinary Tract Surgery - bladder stimulator-interstim - Immunizations Hx Diphtheria, Pertussis, Tetanus Vaccination: - unknown Hx Pneumococcal Vaccination: 01/29/14 <SYED GUTIERREZ - Last Filed: 04/02/18 15:28> Review of Systems <ANTONIETA MALHOTRA - Last Filed: 03/31/18 15:05> - Review of Systems Constitutional: No symptoms reported, See HPI, Fever, Weakness EENT: No symptoms reported Cardiovascular: No symptoms reported Respiratory: No symptoms reported Gastrointestinal: See HPI, Diarrhea Genitourinary: No symptoms reported Male Genitourinary: No symptoms reported Musculoskeletal: No symptoms reported Skin: No symptoms reported Hematologic/Lymphatic: No symptoms reported Neurological/Psychological: See HPI, Confusion -: Yes All other systems reviewed and negative <SYED GUTIERREZ - Last Filed: 04/02/18 15:28> - Review of Systems Notes: ROS per and son. (SYED GUTIERREZ) Physical Exam - General General appearance: Other - Sleeping during exam - HEENT Head: Normocephalic, Atraumatic Neck: Normal - Respiratory Respiratory status: No respiratory distress Chest status: Nontender Breath sounds: Normal Chest palpation: Normal - Cardiovascular Rhythm: Irregularly irregular Heart sounds: Normal auscultation Murmur: No Friction rub: No Gallop: None auscultated - Abdominal Inspection: Normal Distension: No distension Bowel sounds: Normal Tenderness: Nontender Organomegaly: No organomegaly - Back Back: Normal - Skin Skin Temperature: Warm Skin Moisture: Dry Skin Color: Normal <SYED GUTIERREZ - Last Filed: 04/02/18 15:28> - Vital signs Vitals: Temp Pulse Resp BP Pulse Ox 102.4 F H 110 H 20 111/54 L 96 03/31/18 12:44 03/31/18 12:44 03/31/18 12:44 03/31/18 12:44 03/31/18 12:44 Course - Laboratory Result Diagrams: 03/31/18 12:23 03/31/18 12:23 <ANTONIETA MALHOTRA - Last Filed: 03/31/18 15:05> - Laboratory Result Diagrams: 04/02/18 04:37 04/02/18 04:37 <SYED GUTIERREZ - Last Filed: 04/02/18 15:28> - Vital Signs Vital signs: Temp Pulse Resp BP Pulse Ox 97.5 F 104 H 14 120/65 97 04/02/18 12:34 04/02/18 14:00 04/02/18 12:34 04/02/18 12:34 04/02/18 12:34 - Laboratory Laboratory results interpreted by me: 03/31/18 03/31/18 03/31/18 12:23 12:23 14:10 WBC 35.3 H* RBC 3.96 L Hgb 12.2 L Hct 37.2 L RDW 16.6 H Seg Neuts % (Manual) 91 H Band Neutrophils % 2 L Lymphocytes % (Manual) 1 L Abs Neuts (Manual) 32.8 H Abs Lymphs (Manual) 0.4 L Abs Monocytes (Manual) 2.1 H BUN 25 H Glucose 162 H Lactic Acid Calcium 8.3 L ALT 16 L Creatine Kinase 46 L Total Protein 6.1 L Albumin 3.1 L Ur Leukocyte Esterase SMALL H Urine Ascorbic Acid 20 H 03/31/18 14:30 WBC RBC Hgb Hct RDW Seg Neuts % (Manual) Band Neutrophils % Lymphocytes % (Manual) Abs Neuts (Manual) Abs Lymphs (Manual) Abs Monocytes (Manual) BUN Glucose Lactic Acid 3.0 H Calcium ALT Creatine Kinase Total Protein Albumin Ur Leukocyte Esterase Urine Ascorbic Acid Critical Care Note - Critical Care Note Total time excluding time spent on procedures (mins): 35 <ANTONIETA MALHOTRA - Last Filed: 03/31/18 15:05> Discharge - Discharge Admitting Provider: Hospitalist Unit Admitted: IMCU <ANTONIETA MALHOTRA - Last Filed: 03/31/18 15:05> <SYED GUTIERREZ - Last Filed: 04/02/18 15:28> - Discharge Clinical Impression: Clostridium difficile colitis, Fever, Leukocytosis, DNR (do not resuscitate) Sepsis Qualifiers: Sepsis type: sepsis due to unspecified organism Qualified Code(s): A41.9 - Sepsis, unspecified organism A-fib Qualifiers: Atrial fibrillation type: chronic Qualified Code(s): I48.2 - Chronic atrial fibrillation COPD (chronic obstructive pulmonary disease) Qualifiers: COPD type: unspecified COPD Qualified Code(s): J44.9 - Chronic obstructive pulmonary disease, unspecified Condition: Fair Disposition: ADMITTED INPATIENT Scribe Attestation: 03/31/18 14:16 I personally performed the services described in the documentation, reviewed and edited the documentation which was dictated to the scribe in my presence, and it accurately records my words and actions. (ANTONIETA MALHOTRA) Scribe Documentation - Scribe Written by Scribe:: Ava Tolbert, 03/31/2018 13:53 acting as scribe for :: Katie <SYED GUTIERREZ - Last Filed: 04/02/18 15:28>
[2018-03-31] MEDS ORDERED: NORMAL SALINE 1000 ML 1,000 ML IV ONE ×2 (13:50→15:23)
[2018-03-31 14:04] LABS: HEMATOCRIT 37.2 % (37.9-51.0); HEMOGLOBIN 12.2 g/dL (13.5-17.0); MEAN CORPUSCULAR HEMOGLOBIN 30.9 pg (27.0-33.4); MEAN CORPUSCULAR HGB CONC 32.9 g/dL (32.0-36.0); MEAN CORPUSCULAR VOLUME 94 fl (80-97); PLATELET COUNT 303 10^3/uL (150-450); RED BLOOD COUNT 3.96 10^6/uL (4.35-5.55); RED CELL DISTRIBUTION WIDTH 16.6 % (11.5-14.0)
[2018-03-31 14:10] LABS: ALANINE AMINOTRANSFERASE 16 U/L (21-72); ALBUMIN 3.1 g/dL (3.5-5.0); ALKALINE PHOSPHATASE 81 U/L (38-126); ANION GAP 13 (5-19); ASPARTATE AMINO TRANSFERASE 37 U/L (17-59); BILIRUBIN,DIRECT 0.4 mg/dL (0.0-0.4); BILIRUBIN,TOTAL 0.5 mg/dL (0.2-1.3); BLOOD UREA NITROGEN 25 mg/dL (7-20); CALCIUM 8.3 mg/dL (8.4-10.2); CARBON DIOXIDE 27 mmol/L (22-30); CHLORIDE 105 mmol/L (98-107); CREATINE KINASE 46 U/L (55-170); GLUCOSE 162 mg/dL (75-110); POTASSIUM 3.9 mmol/L (3.6-5.0); SODIUM 144.6 mmol/L (137-145); TOTAL PROTEIN 6.1 g/dL (6.3-8.2)
[2018-03-31 14:26] LABS: ABSOLUTE LYMPHOCYTES# (MANUAL) 0.4 10^3/uL (0.5-4.7); ABSOLUTE MONOCYTES # (MANUAL) 2.1 10^3/uL (0.1-1.4); ABSOLUTE NEUTROPHILS# (MANUAL) 32.8 10^3/uL (1.7-8.2); BAND NEUTROPHILS % (MANUAL) 2 % (3-5); BASOPHILS % (MANUAL) 0 % (0-2); EOSINOPHILS % (MANUAL) 0 % (0-6); LYMPHOCYTES % (MANUAL) 1 % (13-45); MONOCYTES % (MANUAL) 6 % (3-13); SEGMENTED NEUTROPHILS % (MAN) 91 % (42-78); TOTAL CELLS COUNTED 100
[2018-03-31 14:27] LABS: ANISOCYTOSIS 1+; OVALOCYTES 1+; PLATELET CLUMPS PRESENT; PLATELET COMMENT ADEQUATE; POIKILOCYTOSIS 1+
[2018-03-31 14:30] LABS: WHITE BLOOD COUNT 35.3 10^3/uL (4.0-10.5)
[2018-03-31 14:34] LABS: APPEARANCE,URINE SLIGHTLY-CLOUDY; BILIRUBIN,URINE NEGATIVE (NEGATIVE); COLOR,URINE YELLOW; GLUCOSE, URINE NEGATIVE (NEGATIVE); KETONES,URINE NEGATIVE (NEGATIVE); LEUKOCYTE ESTERASE,URINE SMALL (NEGATIVE); NITRITE,URINE NEGATIVE (NEGATIVE); PROTEIN,URINE NEGATIVE (NEGATIVE); URINE SPECIFIC GRAVITY 1.017; UROBILINOGEN,URINE NEGATIVE mg/dL (<2.0)
[2018-03-31] MEDS ORDERED: VANCOMYCIN HCL INJ 1000 MG VIAL IV ONE (14:44)
[2018-03-31] MEDS ORDERED: LACTOBACILLUS ACIDOPHILUS 250 MG TAB PO ONE (15:24)
--- NOTE | 2018-03-31 15:27 | RADIOLOGY REPORT (SQ) ---
EXAM DESCRIPTION: CHEST SINGLE VIEW COMPLETED DATE/TIME: 03/31/2018 3:06 pm REASON FOR STUDY: fever, leukocytosis COMPARISON: 03/04/2018 EXAM PARAMETERS: NUMBER OF VIEWS: One view. TECHNIQUE: Single frontal radiographic view of the chest acquired. RADIATION DOSE: NA LIMITATIONS: None. FINDINGS: LUNGS AND PLEURA: No opacities, masses or pneumothorax. No pleural effusion. MEDIASTINUM AND HILAR STRUCTURES: No masses. Contour normal. HEART AND VASCULAR STRUCTURES: Heart normal in size. Normal vasculature. BONES: No acute findings. HARDWARE: None in the chest. OTHER: No other significant finding. IMPRESSION: NO ACUTE RADIOGRAPHIC FINDING IN THE CHEST. Clearing of the previously noted infiltrate . TECHNICAL DOCUMENTATION: JOB ID: [id number] [employer]- All Rights Reserved Reading location - IP/workstation name: [email or web address]
--- NOTE | 2018-03-31 16:02 | PDOC H&P ---
History of Present Illness Admission Date/PCP: RAMANDEEP RAMSEY, Patient complains of: Diarrhea History of Present Illness: STACIA ANNE is a 87 year old male past medical history of COPD, CHF presents to the emergency department via EMS accompanied by and son complaining of a low grade fever, weakness, confusion and continuing diarrhea onset today. Patient himself is well-known to the hospitalist service. states the patient was recently diagnosed with C.diff after 2 days of being placed in rehab at [facility] on March 27, 2018. Patient was seen here and discharged a few days earlier for COPD exacerbation. Patient was prescribed 125 mg Vancomycin 4x daily for 10 days to treat his C. diff. Unfortunately while the patient was being treated for C. difficile he encountered significant skin tear which appeared infected and the patient was placed on a course of an unknown antibiotic while being treated for C. difficile. states the diarrhea never went away stating it only got a little better while on the medication, further stating she feels the diarrhea worsened since the patient stopped the medication. Son states "it seemed like his legs did not want to work " when attempting to get the patient in the shower this morning. He further states when attempting to feed the patient, he seemed more confused than normal further stating the patient was placing his hand in his oatmeal. Patient was recently seen and discharged in this emergency department 03/29/2018 due to a fall. Patient had a negative CT scan and received 2 rocky on the parieto-occipital region. Given findings on diagnostic testing as well as evidence of sepsis the patient was referred to the hospitalist for admission management. The patient was found to have leukocytosis, bandemia, febrile state and significant tachycardia.Patient is an 87 year old male with COPD, CHF presents to the emergency department via EMS accompanied by and son complaining of a low grade fever, weakness, confusion and continuing diarrhea onset today. 03/31/18 12:23 WBC 35.3 H* Band Neutrophils % 2 L Selected Entries 03/31/18 03/31/18 03/31/18 12:44 13:12 13:13 Temperature 102.4 F H Heart Rate ( 102 120 Monitors) Past Medical History Cardiac Medical History: Reports: Atrial Fibrillation, Congestive Heart Failure , Coronary Artery Disease, Hyperlipidema, Hypertension Pulmonary Medical History: Reports: Chronic Obstructive Pulmonary Disease (COPD) , Pneumonia Endocrine Medical History: Reports: Diabetes Mellitus Type 2 Musculoskeltal Medical History: Reports: Arthritis - osteoporosis Past Surgical History Past Surgical History: Reports: Appendectomy, Orthopedic Surgery - Back, right knee Social History Information Source: [facility] Records Occupation: Retired Lives with: Family Smoking Status: Former Smoker Frequency of Alcohol Use: None Hx Recreational Drug Use: No Drugs: None Hx Prescription Drug Abuse: No - Advance Directive Resuscitation Status: Do Not Resuscitate Surrogate healthcare decision maker:: Spouse: Ania tarango be reached at [phone]. Family History Family History: Hypertension Parental Family History Reviewed: Yes Children Family History Reviewed: Yes Sibling(s) Family History Reviewed.: Yes Medication/Allergy Home Medications: Alendronate Sodium [Fosamax "Weekly" 35 mg Tablet] 35 mg PO MO@0800 11/07/17 Atorvastatin Calcium [Lipitor 20 mg Tablet] 20 mg PO QHS 11/07/17 Furosemide [Lasix 40 mg Tablet] 40 mg PO BID 11/07/17 Omeprazole 20 mg PO [id number] 11/07/17 Albuterol Sulfate [Proair HFA Inhalation Aerosol 8.5 gm MDI] 1 puff IH Q6HP PRN 03/05/18 Mirabegron [Myrbetriq] 50 mg PO DAILY 03/05/18 Lisinopril [Prinivil 10 mg Tablet] 5 mg PO Q12 tablet 03/08/18 Metoprolol Succinate [Toprol Xl 25 mg Tab.sr] 25 mg PO Q12 tab.sr.24h 03/08/18 Dextran 70/Hypromellose [Artificial Tears] 1 each OU DAILY 03/31/18 Iron Ps Complex/B12/Folic Acid [Ferrex 150 Forte Capsule] 1 each PO BID Lactobacillus Rhamnosus GG [Culturelle] 1 each PO DAILY 03/31/18 Potassium Chloride [Kaon-Cl 20 Meq/15 Ml Udcup] 40 meq PO DAILY 03/31/18 Allergies/Adverse Reactions: cortisone [Cortisone] Allergy (Mild, Verified 10/14/15 07:57) sugar and B/P were elevated Review of Systems ROS unobtainable: Due to mental status Physical Exam Vital Signs: Temp Pulse Resp BP Pulse Ox 102.4 F H 110 H 22 H 107/54 L 95 03/31/18 12:44 03/31/18 12:44 03/31/18 14:01 03/31/18 14:01 03/31/18 14:01 Intake & Output 03/29/18 03/30/18 03/31/18 23:59 23:59 23:59 Weight 72.575 kg General appearance: PRESENT: thin - Frail chronically ill-appearing 87-year-old male.. ABSENT: no acute distress Head exam: PRESENT: atraumatic Eye exam: PRESENT: conjunctiva pale, PERRLA. ABSENT: scleral icterus Mouth exam: PRESENT: moist, neck supple, tongue midline Neck exam: ABSENT: JVD, tracheal deviation Respiratory exam: PRESENT: clear to auscultation nick, symmetrical, unlabored. ABSENT: tachypnea Cardiovascular exam: PRESENT: irregular rhythm GI/Abdominal exam: PRESENT: hyperactive bowel sounds, soft. ABSENT: tenderness Rectal exam: PRESENT: deferred Musculoskeletal exam: ABSENT: ambulatory Neurological exam: PRESENT: alert, altered, oriented to person. ABSENT: aphasic Psychiatric exam: PRESENT: flat affect Skin exam: PRESENT: pallor Results Laboratory Results: 03/31/18 03/31/18 03/31/18 12:23 12:23 14:10 WBC 35.3 H* RBC 3.96 L Hgb 12.2 L Hct 37.2 L MCV 94 MCH 30.9 MCHC 32.9 RDW 16.6 H Plt Count 303 Seg Neutrophils % Not Reportable Lymphocytes % Not Reportable Monocytes % Not Reportable Eosinophils % Not Reportable Basophils % Not Reportable Absolute Neutrophils Not Reportable Absolute Lymphocytes Not Reportable Absolute Monocytes Not Reportable Absolute Eosinophils Not Reportable Absolute Basophils Not Reportable Sodium 144.6 Potassium 3.9 Chloride 105 Carbon Dioxide 27 Anion Gap 13 BUN 25 H Creatinine 1.07 Est GFR ( Amer) > 60 Est GFR (Non-Af Amer) > 60 Glucose 162 H Lactic Acid Calcium 8.3 L Total Bilirubin 0.5 AST 37 ALT 16 L Alkaline Phosphatase 81 Total Protein 6.1 L Albumin 3.1 L Urine Color Urine Appearance Urine pH Ur Specific [place] Urine Protein Urine Glucose (UA) Urine Ketones Urine Blood Urine Nitrite Ur Leukocyte Esterase Urine WBC (Auto) Urine RBC (Auto) Stool for White Cells NO WBCs SEEN 03/31/18 03/31/18 14:10 14:30 WBC RBC Hgb Hct MCV MCH MCHC RDW Plt Count Seg Neutrophils % Lymphocytes % Monocytes % Eosinophils % Basophils % Absolute Neutrophils Absolute Lymphocytes Absolute Monocytes Absolute Eosinophils Absolute Basophils Sodium Potassium Chloride Carbon Dioxide Anion Gap BUN Creatinine Est GFR ( Amer) Est GFR (Non-Af Amer) Glucose Lactic Acid 3.0 H Calcium Total Bilirubin AST ALT Alkaline Phosphatase Total Protein Albumin Urine Color YELLOW Urine Appearance SLIGHTLY-CLOUDY Urine pH 5.0 Ur Specific [place] 1.017 Urine Protein NEGATIVE Urine Glucose (UA) NEGATIVE Urine Ketones NEGATIVE Urine Blood NEGATIVE Urine Nitrite NEGATIVE Ur Leukocyte Esterase SMALL H Urine WBC (Auto) 4 Urine RBC (Auto) 3 Stool for White Cells 03/31/18 03/31/18 12:23 12:23 Creatine Kinase 46 L Troponin I 0.026 Impressions: Chest X-Ray 03/31/18 14:43 IMPRESSION: NO ACUTE RADIOGRAPHIC FINDING IN THE CHEST. Clearing of the previously noted infiltrate. Assessment & Plan - Diagnosis (1) Clostridium difficile colitis Is this a current diagnosis for this admission?: Yes Plan: Patient received a brief course of oral vancomycin at the place the patient on a max dose of oral vancomycin as well as yogurt with each tray and probiotic therapy. 03/31/18 14:10 C. difficile Tox (PCR) POSITIVE (2) Sepsis Qualifiers: Sepsis type: sepsis due to unspecified organism Qualified Code(s): A41.9 - Sepsis, unspecified organism Is this a current diagnosis for this admission?: Yes Plan: Patient appears to be in early sepsis. The patient does have bandemia as well as febrile state. Patient did improve with 1 L of fluid however monitor closely for further evidence of decompensation. Will have to use fluids judiciously given the patient's heart failure. Selected Entries 03/31/18 03/31/18 12:44 14:01 Temperature 102.4 F H Heart Rate ( 120 Monitors) 03/31/18 03/31/18 12:23 14:30 WBC 35.3 H* Band Neutrophils % 2 L Lactic Acid 3.0 H (3) Cerebral vascular disease Is this a current diagnosis for this admission?: Yes Plan: Will resume home medications. (4) CKD (chronic kidney disease), stage III Is this a current diagnosis for this admission?: Yes Plan: The patient's creatinine appears to be at baseline. (5) A-fib Qualifiers: Atrial fibrillation type: chronic Qualified Code(s): I48.2 - Chronic atrial fibrillation Is this a current diagnosis for this admission?: Yes Plan: Patient is in chronic atrial fibrillation. The patient's rate is very poorly controlled at this time however that is due to the patient's sepsis. Currently do have a small amount of blood pressure to work with at this point.Will resume beta joya. (6) HTN (hypertension) Qualifiers: Hypertension type: essential hypertension Qualified Code(s): I10 - Essential (primary) hypertension Is this a current diagnosis for this admission?: Yes Plan: Hold the patient's antihypertensive medications in an effort to give him some blood pressure to work with. (7) COPD (chronic obstructive pulmonary disease) Qualifiers: COPD type: unspecified COPD Qualified Code(s): J44.9 - Chronic obstructive pulmonary disease, unspecified Is this a current diagnosis for this admission?: Yes Plan: We will resume home inhaler. (8) Hyperlipidemia Qualifiers: Hyperlipidemia type: unspecified Qualified Code(s): E78.5 - Hyperlipidemia , unspecified Is this a current diagnosis for this admission?: Yes (9) DNR (do not resuscitate) Is this a current diagnosis for this admission?: Yes Plan: Patient's condition appears guarded at this time. Defer palliative care consultation to the patient's primary doctor. - Time Time Spent: 50 to 70 Minutes Medications reviewed and adjusted accordingly: Yes Anticipated discharge: Home Within: Other Disposition: The patient is a DO NOT RESUSCITATE DO NOT INTUBATE. Pending patient's symptomatology and diagnostic findings will reevaluate as needed. We will admit the patient to inpatient IMCU was the patient's expected length of stay will surpass 2 midnights. - Inpatient Certification Based on my medical assessment, after consideration of the patient's comorbidities, presenting symptoms, or acuity I expect that the services needed warrant INPATIENT care.: Yes I certify that my determination is in accordance with my understanding of Medicare's requirements for reasonable and necessary INPATIENT services [42 CFR 412.3e].: Yes Medical Necessity: Failure to Improve With Outpatient Therapy, Need For IV Fluids Post Hospital Care: D/C or Transfer Summary
[2018-03-31] MEDS ORDERED: VANCOMYCIN HCL INJ 500 MG VIAL PO SCH (18:00)
[2018-03-31] MEDS ORDERED: ALBUTEROL SULFATE HFA (90 MCG/PUFF) 200 PUFF/8.5 GM MDI IH PRN (18:35)
[2018-03-31] MEDS ORDERED: RINGERS SOLUTION,LACTATED 1,000 ML IV PRN (18:36)
[2018-03-31] MEDS: LACTOBACILLUS ACIDOPHILUS 250 MG TAB PO SCH (18:46)
[2018-03-31] MEDS: TAMSULOSIN HCL 0.4 MG CAP.SR.24H PO SCH (18:46)
[2018-03-31] MEDS ORDERED: VANCOMYCIN HCL INJ 500 MG VIAL ONE (18:54)
[2018-03-31] MEDS: METOPROLOL SUCCINATE 25 MG TAB.SR.24H PO SCH (22:54)
[2018-03-31] MEDS: HEPARIN SOD (PORCINE) 5,000 UNIT/ML 1 ML SYRINGE SUBCUT SCH (22:54)
[2018-03-31] MEDS: ATORVASTATIN CALCIUM 20 MG TABLET PO SCH (22:55)
[2018-04-01] MEDS ORDERED: RINGERS SOLUTION,LACTATED 1,000 ML IV PRN ×2 (02:53→04:34)
[2018-04-01] MEDS ORDERED: RINGERS SOLUTION,LACTATED 250 ML IV PRN ×2 (03:07→04:56)
[2018-04-01] MEDS: VANCOMYCIN HCL INJ 500 MG VIAL PO SCH ×4 (03:17→22:14)
[2018-04-01 05:50] LABS: HEMATOCRIT 32.2 % (37.9-51.0); HEMOGLOBIN 10.9 g/dL (13.5-17.0); MEAN CORPUSCULAR HEMOGLOBIN 31.7 pg (27.0-33.4); MEAN CORPUSCULAR HGB CONC 33.9 g/dL (32.0-36.0); MEAN CORPUSCULAR VOLUME 94 fl (80-97); PLATELET COUNT 204 10^3/uL (150-450); RED BLOOD COUNT 3.44 10^6/uL (4.35-5.55); RED CELL DISTRIBUTION WIDTH 16.6 % (11.5-14.0); WHITE BLOOD COUNT 25.1 10^3/uL (4.0-10.5)
[2018-04-01 06:10] LABS: ANION GAP 8 (5-19); BLOOD UREA NITROGEN 22 mg/dL (7-20); CALCIUM 7.7 mg/dL (8.4-10.2); CARBON DIOXIDE 25 mmol/L (22-30); CHLORIDE 107 mmol/L (98-107); GLUCOSE 100 mg/dL (75-110); POTASSIUM 3.3 mmol/L (3.6-5.0); SODIUM 140.3 mmol/L (137-145)
[2018-04-01] MEDS: HEPARIN SOD (PORCINE) 5,000 UNIT/ML 1 ML SYRINGE SUBCUT SCH (06:42)
--- NOTE | 2018-04-01 08:05 | PDOC PROGRESS REPORT ---
Subjective Progress Note for:: 04/01/18 Subjective:: The patient is more awake and denies any complaints. He appears to be slightly more awake. Family member at the bedside. Discussed the need to avoid any outside food and to have C. difficile precautions. Reason For Visit: COLLITIS Physical Exam Vital Signs: Temp Pulse Resp BP Pulse Ox 98.4 F 88 18 92/41 L 97 03/31/18 23:11 04/01/18 07:00 04/01/18 03:42 04/01/18 04:38 04/01/18 03:42 Intake & Output 03/31/18 04/01/18 04/02/18 06:59 06:59 06:59 Intake Total 1715 Balance 1715 Weight 52 kg General appearance: PRESENT: mild distress Head exam: PRESENT: atraumatic Eye exam: PRESENT: conjunctiva pink Mouth exam: PRESENT: dry mucosa Neck exam: PRESENT: carotid bruit. ABSENT: JVD Respiratory exam: PRESENT: crackles, rhonchi Cardiovascular exam: PRESENT: irregular rhythm, +S1, +S2 Pulses: PRESENT: +1 pedal pulses bilateral GI/Abdominal exam: PRESENT: soft, tenderness. ABSENT: guarding, rebound Extremities exam: PRESENT: tenderness Musculoskeletal exam: PRESENT: tenderness Neurological exam: PRESENT: awake Results Laboratory Results: 04/01/18 05:26 04/01/18 05:26 03/31/18 04/01/18 04/01/18 18:25 05:26 05:26 WBC 25.1 H RBC 3.44 L Hgb 10.9 L Hct 32.2 L MCV 94 MCH 31.7 MCHC 33.9 RDW 16.6 H Plt Count 204 Sodium 140.3 Potassium 3.3 L Chloride 107 Carbon Dioxide 25 Anion Gap 8 BUN 22 H Creatinine 0.92 Est GFR ( Amer) > 60 Est GFR (Non-Af Amer) > 60 Glucose 100 Lactic Acid 3.6 H Calcium 7.7 L Magnesium 2.0 Impressions: Chest X-Ray 03/31/18 14:43 IMPRESSION: NO ACUTE RADIOGRAPHIC FINDING IN THE CHEST. Clearing of the previously noted infiltrate. Assessment & Plan - Diagnosis (1) A-fib Qualifiers: Atrial fibrillation type: chronic Qualified Code(s): I48.2 - Chronic atrial fibrillation Is this a current diagnosis for this admission?: Yes Plan: Continue current medications. Would avoid anticoagulation because of previous GI bleed and severe thrombocytopenia (2) CKD (chronic kidney disease), stage III Is this a current diagnosis for this admission?: Yes Plan: Continue current medication (3) Clostridium difficile colitis Is this a current diagnosis for this admission?: Yes Plan: C. difficile colitis with elevated white count. We will continue with p.o. vancomycin (4) COPD (chronic obstructive pulmonary disease) Qualifiers: COPD type: unspecified COPD Qualified Code(s): J44.9 - Chronic obstructive pulmonary disease, unspecified Is this a current diagnosis for this admission?: Yes Plan: Stable continue current medications (5) DNR (do not resuscitate) Is this a current diagnosis for this admission?: Yes Plan: We will continue DNR. Discussed with the family about placement to a skilled nursing
[2018-04-01] MEDS: LACTOBACILLUS ACIDOPHILUS 250 MG TAB PO SCH ×2 (09:26→18:33)
[2018-04-01] MEDS: POLYVINYL ALCOHOL 1.4% OPH SOLN 15 ML OU SCH (09:27)
[2018-04-01] MEDS: METOPROLOL SUCCINATE 25 MG TAB.SR.24H PO SCH ×2 (09:27→22:15)
[2018-04-01] MEDS: NORMAL SALINE 1000 ML 1,000 ML IV PRN (09:33)
[2018-04-01] MEDS ORDERED: LACTOBACILLUS RHAMNOSUS GG PO SCH (10:00)
[2018-04-01] MEDS ORDERED: POTASSIUM CHLORIDE 20 MEQ/15 ML UDCUP PO SCH (10:00)
[2018-04-01 13:26] LABS: PATH REVIEW PATHOLOGIST REVIEWED
[2018-04-01] MEDS: TAMSULOSIN HCL 0.4 MG CAP.SR.24H PO SCH (18:33)
[2018-04-01] MEDS: ATORVASTATIN CALCIUM 20 MG TABLET PO SCH (22:15)
[2018-04-02] MEDS: VANCOMYCIN HCL INJ 500 MG VIAL PO SCH ×4 (02:00→21:07)
[2018-04-02 05:43] LABS: ABSOLUTE BASOPHILS # (AUTO) 0.1 10^3/uL (0.0-0.2); ABSOLUTE EOSINOPHILS # (AUTO) 0.2 10^3/uL (0.0-0.6); ABSOLUTE LYMPHOCYTES (AUTO) 1.2 10^3/uL (0.5-4.7); ABSOLUTE MONOCYTES (AUTO) 0.9 10^3/uL (0.1-1.4); ABSOLUTE NEUT (AUTO) 12.9 10^3/uL (1.7-8.2); BASOPHILS % (AUTO) 0.5 % (0-2); EOSINOPHILS % (AUTO) 1.4 % (0-6); LYMPHOCYTES % (AUTO) 7.8 % (13-45); MEAN CORPUSCULAR HEMOGLOBIN 32.1 pg (27.0-33.4); MEAN CORPUSCULAR HGB CONC 34.5 g/dL (32.0-36.0); MEAN CORPUSCULAR VOLUME 93 fl (80-97); MONOCYTES % (AUTO) 6.2 % (3-13); PLATELET COUNT 168 10^3/uL (150-450); RED BLOOD COUNT 3.11 10^6/uL (4.35-5.55); RED CELL DISTRIBUTION WIDTH 16.8 % (11.5-14.0); SEGMENTED NEUTROPHILS % (AUTO) 84.1 % (42-78); TOTAL CELLS COUNTED % (AUTO) 100 %; WHITE BLOOD COUNT 15.3 10^3/uL (4.0-10.5)
[2018-04-02 05:51] LABS: ALANINE AMINOTRANSFERASE 24 U/L (21-72); ALBUMIN 2.2 g/dL (3.5-5.0); ALKALINE PHOSPHATASE 68 U/L (38-126); ASPARTATE AMINO TRANSFERASE 19 U/L (17-59); BILIRUBIN,DIRECT 0.3 mg/dL (0.0-0.4); BILIRUBIN,TOTAL 0.3 mg/dL (0.2-1.3); BLOOD UREA NITROGEN 16 mg/dL (7-20); CALCIUM 7.5 mg/dL (8.4-10.2); CHLORIDE 111 mmol/L (98-107); GLUCOSE 77 mg/dL (75-110); POTASSIUM 3.2 mmol/L (3.6-5.0); SODIUM 144.3 mmol/L (137-145); TOTAL PROTEIN 4.4 g/dL (6.3-8.2)
[2018-04-02 06:15] LABS: ANION GAP 7 (5-19); CARBON DIOXIDE 26 mmol/L (22-30)
--- NOTE | 2018-04-02 08:08 | PDOC PROGRESS REPORT ---
Subjective Progress Note for:: 04/02/18 Subjective:: The patient appears to be more awake and alert. He appears to be doing better. He denies any new symptoms. Reason For Visit: COLLITIS Physical Exam Vital Signs: Temp Pulse Resp BP Pulse Ox 97.4 F 76 20 128/60 H 98 04/02/18 04:54 04/02/18 04:54 04/02/18 04:54 04/02/18 04:54 04/02/18 04:54 Intake & Output 04/01/18 04/02/18 04/03/18 06:59 06:59 06:59 Intake Total 1715 1442 Output Total 140 Balance 1715 1302 Weight 52 kg 59.1 kg General appearance: PRESENT: mild distress, thin Head exam: PRESENT: atraumatic Eye exam: PRESENT: conjunctiva pink Neck exam: PRESENT: carotid bruit. ABSENT: JVD Respiratory exam: PRESENT: rhonchi Cardiovascular exam: PRESENT: irregular rhythm, +S1, +S2 GI/Abdominal exam: PRESENT: normal bowel sounds, soft Extremities exam: PRESENT: tenderness Musculoskeletal exam: PRESENT: tenderness Neurological exam: PRESENT: alert Psychiatric exam: PRESENT: anxious Results Laboratory Results: 04/02/18 04:37 04/02/18 04:37 04/02/18 04/02/18 04:37 04:37 WBC 15.3 H RBC 3.11 L Hgb 10.0 L Hct 29.0 L MCV 93 MCH 32.1 MCHC 34.5 RDW 16.8 H Plt Count 168 Seg Neutrophils % 84.1 H Lymphocytes % 7.8 L Monocytes % 6.2 Eosinophils % 1.4 Basophils % 0.5 Absolute Neutrophils 12.9 H Absolute Lymphocytes 1.2 Absolute Monocytes 0.9 Absolute Eosinophils 0.2 Absolute Basophils 0.1 Sodium 144.3 Potassium 3.2 L Chloride 111 H Carbon Dioxide 26 Anion Gap 7 BUN 16 Creatinine 0.81 Est GFR ( Amer) > 60 Est GFR (Non-Af Amer) > 60 Glucose 77 Calcium 7.5 L Total Bilirubin 0.3 AST 19 ALT 24 Alkaline Phosphatase 68 Total Protein 4.4 L Albumin 2.2 L Impressions: Chest X-Ray 03/31/18 14:43 IMPRESSION: NO ACUTE RADIOGRAPHIC FINDING IN THE CHEST. Clearing of the previously noted infiltrate. Assessment & Plan - Diagnosis (1) A-fib Qualifiers: Atrial fibrillation type: chronic Qualified Code(s): I48.2 - Chronic atrial fibrillation Is this a current diagnosis for this admission?: Yes Plan: Continue current medications. Would avoid anticoagulation because of previous GI bleed and severe thrombocytopenia (2) CKD (chronic kidney disease), stage III Is this a current diagnosis for this admission?: Yes Plan: Continue current medication (3) Clostridium difficile colitis Is this a current diagnosis for this admission?: Yes Plan: Symptoms improving. White count is down. No abdominal pain. We will continue with p.o. vancomycin (4) COPD (chronic obstructive pulmonary disease) Qualifiers: COPD type: unspecified COPD Qualified Code(s): J44.9 - Chronic obstructive pulmonary disease, unspecified Is this a current diagnosis for this admission?: Yes Plan: Stable continue current medications (5) DNR (do not resuscitate) Is this a current diagnosis for this admission?: Yes
[2018-04-02] MEDS ORDERED: HALOPERIDOL LACTATE INJ 5 MG/1 ML VIAL IV PRN (08:42)
[2018-04-02] MEDS: LACTOBACILLUS ACIDOPHILUS 250 MG TAB PO SCH ×2 (10:29→17:55)
[2018-04-02] MEDS: POTASSIUM CHLORIDE 20 MEQ/15 ML UDCUP PO SCH ×2 (10:30→22:10)
[2018-04-02] MEDS: METOPROLOL SUCCINATE 25 MG TAB.SR.24H PO SCH ×2 (10:34→22:11)
[2018-04-02] MEDS: POLYVINYL ALCOHOL 1.4% OPH SOLN 15 ML OU SCH (10:34)
[2018-04-02] MEDS: TAMSULOSIN HCL 0.4 MG CAP.SR.24H PO SCH (17:55)
[2018-04-02] MEDS: ATORVASTATIN CALCIUM 20 MG TABLET PO SCH (22:12)
[2018-04-03] MEDS: VANCOMYCIN HCL INJ 500 MG VIAL PO SCH ×4 (04:16→21:15)
[2018-04-03] MEDS: POTASSIUM CHLORIDE 20 MEQ/15 ML UDCUP PO SCH ×2 (09:34→21:19)
[2018-04-03] MEDS: LACTOBACILLUS ACIDOPHILUS 250 MG TAB PO SCH ×2 (09:34→18:36)
[2018-04-03] MEDS: METOPROLOL SUCCINATE 25 MG TAB.SR.24H PO SCH ×2 (09:34→21:18)
[2018-04-03] MEDS: POLYVINYL ALCOHOL 1.4% OPH SOLN 15 ML OU SCH (09:35)
--- NOTE | 2018-04-03 11:09 | PDOC PROGRESS REPORT ---
Subjective Progress Note for:: 04/03/18 Subjective:: Doing better. No overnight issues. Diarrhea has slowed down/subsided. Denies fevers, chills, abdominal pain, NV. No other complaints. Son at bedside. Reason For Visit: COLITIS Physical Exam Vital Signs: Temp Pulse Resp BP Pulse Ox 98.2 F 82 16 127/70 H 99 04/03/18 07:50 04/03/18 07:50 04/03/18 07:50 04/03/18 07:50 04/03/18 07:50 Intake & Output 04/02/18 04/03/18 04/04/18 06:59 06:59 06:59 Intake Total 1442 2854 Output Total 140 Balance 1302 2854 Weight 59.1 kg General appearance: PRESENT: no acute distress, thin Head exam: PRESENT: normocephalic Mouth exam: PRESENT: moist Respiratory exam: PRESENT: unlabored. ABSENT: tachypnea Cardiovascular exam: PRESENT: +S1, +S2. ABSENT: tachycardia GI/Abdominal exam: PRESENT: normal bowel sounds, soft. ABSENT: tenderness Neurological exam: PRESENT: alert, other - baseline dementia Psychiatric exam: PRESENT: appropriate affect Results Laboratory Results: 04/02/18 04:37 04/02/18 04:37 Impressions: Chest X-Ray 03/31/18 14:43 IMPRESSION: NO ACUTE RADIOGRAPHIC FINDING IN THE CHEST. Clearing of the previously noted infiltrate. Assessment & Plan - Diagnosis (1) Clostridium difficile colitis Is this a current diagnosis for this admission?: Yes Plan: Clinically improved, diarrhea has stopped. WBC is trending down, 15.3 on 04/03. Afebrile and HDS. Given recurrent CDI, plan to treatment with PO vanc for 10- 14 days. (2) A-fib Qualifiers: Atrial fibrillation type: chronic Qualified Code(s): I48.2 - Chronic atrial fibrillation Is this a current diagnosis for this admission?: Yes Plan: Rate controlled. Not currently on AC due to hx of GI bleed and thrombocytopenia (3) CKD (chronic kidney disease), stage III Is this a current diagnosis for this admission?: Yes Plan: Improved, Cr. 0.81; good UOP. (4) DNR (do not resuscitate) Is this a current diagnosis for this admission?: Yes Plan: Current code status is DNI/DNR (5) Hypokalemia Is this a current diagnosis for this admission?: Yes Plan: Will replete give history of Afib. Goal K>4 - Time Time Spent with patient: Less than 15 minutes Anticipated discharge: Home, Home with Homehealth Within: within 48 hours
[2018-04-03] MEDS ORDERED: METOPROLOL SUCCINATE 25 MG TAB.SR.24H PO ONE (12:45)
[2018-04-03] MEDS: TAMSULOSIN HCL 0.4 MG CAP.SR.24H PO SCH (18:36)
[2018-04-03] MEDS: ATORVASTATIN CALCIUM 20 MG TABLET PO SCH (21:18)
[2018-04-03] MEDS: NORMAL SALINE 1000 ML 1,000 ML IV PRN (21:21)
[2018-04-04] MEDS: VANCOMYCIN HCL INJ 500 MG VIAL PO SCH ×4 (02:32→21:51)
[2018-04-04 07:02] LABS: HEMATOCRIT 30.8 % (37.9-51.0); HEMOGLOBIN 10.3 g/dL (13.5-17.0); MEAN CORPUSCULAR HEMOGLOBIN 31.5 pg (27.0-33.4); MEAN CORPUSCULAR HGB CONC 33.5 g/dL (32.0-36.0); MEAN CORPUSCULAR VOLUME 94 fl (80-97); PLATELET COUNT 181 10^3/uL (150-450); RED BLOOD COUNT 3.28 10^6/uL (4.35-5.55); RED CELL DISTRIBUTION WIDTH 16.8 % (11.5-14.0); WHITE BLOOD COUNT 7.3 10^3/uL (4.0-10.5)
[2018-04-04 07:26] LABS: ANION GAP 6 (5-19); BLOOD UREA NITROGEN 14 mg/dL (7-20); CALCIUM 7.8 mg/dL (8.4-10.2); CARBON DIOXIDE 23 mmol/L (22-30); CHLORIDE 114 mmol/L (98-107); GLUCOSE 109 mg/dL (75-110); POTASSIUM 4.4 mmol/L (3.6-5.0); SODIUM 142.5 mmol/L (137-145)
[2018-04-04] MEDS: METOPROLOL SUCCINATE 25 MG TAB.SR.24H PO SCH ×2 (10:10→22:05)
[2018-04-04] MEDS: LACTOBACILLUS ACIDOPHILUS 250 MG TAB PO SCH ×2 (10:10→17:21)
[2018-04-04] MEDS: POTASSIUM CHLORIDE 20 MEQ/15 ML UDCUP PO SCH ×2 (10:11→22:12)
[2018-04-04] MEDS: POLYVINYL ALCOHOL 1.4% OPH SOLN 15 ML OU SCH (10:11)
--- NOTE | 2018-04-04 15:29 | PDOC PROGRESS REPORT ---
Subjective Progress Note for:: 04/04/18 Subjective:: No complaints at present. Very weak. Family requesting rehab at SNF- Social work consult placed. Continue Vancomycin PO for C diff. Still having loose stools per nursing. Reason For Visit: COLITIS Physical Exam Vital Signs: Temp Pulse Resp BP Pulse Ox 96.8 F L 97 18 135/83 H 99 04/04/18 12:00 04/04/18 12:00 04/04/18 12:00 04/04/18 12:00 04/04/18 12:00 Intake & Output 04/03/18 04/04/18 04/05/18 06:59 06:59 06:59 Intake Total 2854 1650 Output Total 0 Balance 2854 1650 Weight 63.6 kg General appearance: PRESENT: no acute distress, thin Head exam: PRESENT: normocephalic Mouth exam: PRESENT: moist Respiratory exam: PRESENT: rhonchi, symmetrical, unlabored GI/Abdominal exam: PRESENT: normal bowel sounds, soft. ABSENT: tenderness Rectal exam: PRESENT: deferred Neurological exam: PRESENT: alert, awake Skin exam: ABSENT: petechiae Results Laboratory Results: 04/04/18 06:44 04/04/18 06:44 04/04/18 04/04/18 06:44 06:44 WBC 7.3 RBC 3.28 L Hgb 10.3 L Hct 30.8 L MCV 94 MCH 31.5 MCHC 33.5 RDW 16.8 H Plt Count 181 Sodium 142.5 Potassium 4.4 Chloride 114 H Carbon Dioxide 23 Anion Gap 6 BUN 14 Creatinine 0.76 Est GFR ( Amer) > 60 Est GFR (Non-Af Amer) > 60 Glucose 109 Calcium 7.8 L Impressions: Chest X-Ray 03/31/18 14:43 IMPRESSION: NO ACUTE RADIOGRAPHIC FINDING IN THE CHEST. Clearing of the previously noted infiltrate. Assessment & Plan - Diagnosis (1) C. difficile diarrhea Is this a current diagnosis for this admission?: Yes Plan: Continue PO Vancomycin (2) Cerebral vascular disease Is this a current diagnosis for this admission?: Yes (3) Oropharyngeal dysphagia Is this a current diagnosis for this admission?: Yes Plan: Aspiration precautions and modified diet (4) COPD (chronic obstructive pulmonary disease) Qualifiers: COPD type: unspecified COPD Qualified Code(s): J44.9 - Chronic obstructive pulmonary disease, unspecified Is this a current diagnosis for this admission?: Yes (5) DNR (do not resuscitate) Is this a current diagnosis for this admission?: Yes (6) Debility Is this a current diagnosis for this admission?: Yes Plan: PT, rehab - Time Time Spent with patient: 25-34 minutes
[2018-04-04] MEDS: TAMSULOSIN HCL 0.4 MG CAP.SR.24H PO SCH (17:21)
[2018-04-04] MEDS: ATORVASTATIN CALCIUM 20 MG TABLET PO SCH (22:05)
[2018-04-05] MEDS ORDERED: FUROSEMIDE INJ/PF 40 MG/4 ML SDV IV ONE (00:46)
[2018-04-05] MEDS ORDERED: FUROSEMIDE INJ/PF 100 MG/10 ML SDV IV ONE (01:00)
[2018-04-05] MEDS: VANCOMYCIN HCL INJ 500 MG VIAL PO SCH ×3 (04:30→15:18)
[2018-04-05] MEDS: POTASSIUM CHLORIDE 20 MEQ/15 ML UDCUP PO SCH (09:11)
[2018-04-05] MEDS: METOPROLOL SUCCINATE 25 MG TAB.SR.24H PO SCH (09:12)
[2018-04-05] MEDS: LACTOBACILLUS ACIDOPHILUS 250 MG TAB PO SCH ×2 (09:13→17:36)
[2018-04-05] MEDS: POLYVINYL ALCOHOL 1.4% OPH SOLN 15 ML OU SCH (09:14)
[2018-04-05] MEDS ORDERED: DILTIAZEM HCL INJ 25 MG/5 ML VIAL IV ONE (10:30)
--- NOTE | 2018-04-05 10:30 | RADIOLOGY REPORT (SQ) ---
EXAM DESCRIPTION: CHEST SINGLE VIEW COMPLETED DATE/TIME: 04/05/2018 10:18 am REASON FOR STUDY: edema COMPARISON: Chest films 03/31/2018, 03/04/2018, 11/07/2017, 11/06/2017 EXAM PARAMETERS: NUMBER OF VIEWS: One view. TECHNIQUE: Single frontal radiographic view of the chest acquired. RADIATION DOSE: NA LIMITATIONS: None. FINDINGS: LUNGS AND PLEURA: Minimal bibasilar airspace disease is present likely atelectasis. Pneum onia could not entirely be excluded. This is new compared to 03/31/2018. No pleural effusion. No pneumothorax. MEDIASTINUM AND HILAR STRUCTURES: No masses. Contour normal. HEART AND VASCULAR STRUCTURES: Stable cardiomegaly BONES: Old right lower lateral rib fractures HARDWARE: None in the chest. OTHER: No other significant finding. IMPRESSION: Minimal bibasilar atelectasis TECHNICAL DOCUMENTATION: JOB ID: [id number] [employer]- All Rights Reserved Reading location - IP/workstation name: [email or web address]
--- NOTE | 2018-04-05 16:38 | PDOC PROGRESS REPORT ---
Subjective Progress Note for:: 04/05/18 - Patient seen on rounds this morning Subjective:: Patient has no acute complaints this morning. overnight he did develop some shortness of breath and received a one-time dose of Lasix 60 mg IV. Reason For Visit: COLITIS Physical Exam Vital Signs: Temp Pulse Resp BP Pulse Ox 98.1 F 88 16 119/70 100 04/05/18 07:48 04/05/18 14:00 04/05/18 07:48 04/05/18 07:48 04/05/18 07:48 Intake & Output 04/04/18 04/05/18 04/06/18 06:59 06:59 06:59 Intake Total 1650 600 Output Total 0 Balance 1650 600 Weight 140 lb 3.424 oz 141 lb 5.061 oz General appearance: PRESENT: no acute distress Head exam: PRESENT: atraumatic, normocephalic Eye exam: PRESENT: EOMI. ABSENT: scleral icterus Mouth exam: PRESENT: moist, neck supple Respiratory exam: PRESENT: crackles - Left-sided at the base, decreased breath sounds - Slightly decreased but found bilaterally. ABSENT: chest wall tenderness Cardiovascular exam: PRESENT: irregular rhythm, +S1, +S2 GI/Abdominal exam: PRESENT: normal bowel sounds, soft. ABSENT: ascites, tenderness Extremities exam: ABSENT: joint swelling, pedal edema Neurological exam: PRESENT: alert, altered, awake, CN II-XII grossly intact Skin exam: PRESENT: dry, warm Results Laboratory Results: 04/04/18 06:44 04/04/18 06:44 04/04/18 23:53 NT-Pro-B Natriuret Pep [id number] H Impressions: Chest X-Ray 04/05/18 00:00 IMPRESSION: Minimal bibasilar atelectasis Assessment & Plan - Diagnosis (1) Clostridium difficile colitis Is this a current diagnosis for this admission?: Yes (2) Debility Is this a current diagnosis for this admission?: Yes (3) A-fib Qualifiers: Atrial fibrillation type: chronic Qualified Code(s): I48.2 - Chronic atrial fibrillation Is this a current diagnosis for this admission?: Yes (4) COPD (chronic obstructive pulmonary disease) Qualifiers: COPD type: unspecified COPD Qualified Code(s): J44.9 - Chronic obstructive pulmonary disease, unspecified Is this a current diagnosis for this admission?: Yes (5) HTN (hypertension) Qualifiers: Hypertension type: essential hypertension Qualified Code(s): I10 - Essential (primary) hypertension Is this a current diagnosis for this admission?: Yes - Time Time Spent with patient: 25-34 minutes - Plan Summary Plan Summary: Patient is diagnosed with C. difficile and currently on Vanco mycin p.o-2 days day #5. Unfortunately patient is refusing medication at times. I have discussed about this with him and he told me he will take it. He's scheduled for rehab/SNF likely on Sunday. Due to shortness of breath I got a chest x-ray at this morning to see if there is any pulmonary edema-fortunately there is no edema in his lungs.
[2018-04-05] MEDS: TAMSULOSIN HCL 0.4 MG CAP.SR.24H PO SCH (17:36)
[2018-04-06] MEDS: ATORVASTATIN CALCIUM 20 MG TABLET PO SCH (00:14)
[2018-04-06] MEDS: METOPROLOL SUCCINATE 25 MG TAB.SR.24H PO SCH ×2 (00:15→09:09)
[2018-04-06] MEDS: VANCOMYCIN HCL INJ 500 MG VIAL PO SCH ×4 (00:19→15:25)
[2018-04-06] MEDS: POTASSIUM CHLORIDE 20 MEQ/15 ML UDCUP PO SCH ×2 (00:25→09:09)
[2018-04-06] MEDS: POLYVINYL ALCOHOL 1.4% OPH SOLN 15 ML OU SCH (09:09)
[2018-04-06] MEDS: LACTOBACILLUS ACIDOPHILUS 250 MG TAB PO SCH ×2 (09:09→17:22)
[2018-04-06 10:03] LABS: HEMATOCRIT 33.6 % (37.9-51.0); HEMOGLOBIN 11.3 g/dL (13.5-17.0); MEAN CORPUSCULAR HEMOGLOBIN 31.4 pg (27.0-33.4); MEAN CORPUSCULAR HGB CONC 33.7 g/dL (32.0-36.0); MEAN CORPUSCULAR VOLUME 93 fl (80-97); PLATELET COUNT 233 10^3/uL (150-450); RED BLOOD COUNT 3.61 10^6/uL (4.35-5.55); RED CELL DISTRIBUTION WIDTH 17.2 % (11.5-14.0); WHITE BLOOD COUNT 8.6 10^3/uL (4.0-10.5)
[2018-04-06] MEDS ORDERED: FUROSEMIDE INJ/PF 20 MG/2 ML SDV IV ONE (13:30)
[2018-04-06] MEDS: TAMSULOSIN HCL 0.4 MG CAP.SR.24H PO SCH (17:22)
--- NOTE | 2018-04-06 18:19 | PDOC PROGRESS REPORT ---
Subjective Progress Note for:: 04/06/18 - seen on rounds this morning Subjective:: Patient is doing well and has no complaints this morning. Reason For Visit: COLITIS Physical Exam Vital Signs: Temp Pulse Resp BP Pulse Ox 97.8 F 85 20 122/79 100 04/06/18 15:13 04/06/18 15:13 04/06/18 15:13 04/06/18 15:13 04/06/18 15:13 Intake & Output 04/05/18 04/06/18 04/07/18 06:59 06:59 06:59 Intake Total 600 633 357 Output Total 50 Balance 600 583 357 Weight 141 lb 5.061 oz 138 lb 14.259 oz General appearance: PRESENT: no acute distress, thin Head exam: PRESENT: atraumatic, normocephalic Eye exam: PRESENT: EOMI. ABSENT: conjunctival injection - Thank which are okay right, scleral icterus Ear exam: PRESENT: normal external ear exam Mouth exam: PRESENT: moist, neck supple Neck exam: PRESENT: full ROM. ABSENT: JVD, tenderness Respiratory exam: PRESENT: clear to auscultation nick - On Sunday, symmetrical Cardiovascular exam: PRESENT: +S1, +S2 Pulses: PRESENT: +2 pedal pulses bilateral Vascular exam: PRESENT: normal capillary refill GI/Abdominal exam: PRESENT: normal bowel sounds, soft. ABSENT: tenderness Extremities exam: ABSENT: +2 edema Musculoskeletal exam: PRESENT: full ROM. ABSENT: tenderness Neurological exam: PRESENT: alert, awake, oriented to person, oriented to place , oriented to time, CN II-XII grossly intact Skin exam: PRESENT: dry, warm Results Laboratory Results: 04/06/18 09:25 04/04/18 06:44 04/06/18 09:25 WBC 8.6 RBC 3.61 L Hgb 11.3 L Hct 33.6 L MCV 93 MCH 31.4 MCHC 33.7 RDW 17.2 H Plt Count 233 04/04/18 23:53 NT-Pro-B Natriuret Pep [id number] H Impressions: Chest X-Ray 04/05/18 00:00 IMPRESSION: Minimal bibasilar atelectasis Assessment & Plan - Diagnosis (1) Clostridium difficile colitis Is this a current diagnosis for this admission?: Yes (2) Debility Is this a current diagnosis for this admission?: Yes (3) A-fib Qualifiers: Atrial fibrillation type: chronic Qualified Code(s): I48.2 - Chronic atrial fibrillation Is this a current diagnosis for this admission?: Yes (4) COPD (chronic obstructive pulmonary disease) Qualifiers: COPD type: unspecified COPD Qualified Code(s): J44.9 - Chronic obstructive pulmonary disease, unspecified Is this a current diagnosis for this admission?: Yes (5) HTN (hypertension) Qualifiers: Hypertension type: essential hypertension Qualified Code(s): I10 - Essential (primary) hypertension Is this a current diagnosis for this admission?: Yes - Time Time Spent with patient: 15-24 minutes - Plan Summary Plan Summary: Patient is doing well today is much more alert and oriented today. He is continued on the vancomycin. I will speak with case management about discharge planning at this time. At home he is on Lasix 40 mg p.o. and at this time is not getting anything here. I will start him on Lasix 20 daily from tomorrow and see how he does.
[2018-04-07] MEDS: VANCOMYCIN HCL INJ 500 MG VIAL PO SCH ×5 (00:36→21:18)
[2018-04-07] MEDS: METOPROLOL SUCCINATE 25 MG TAB.SR.24H PO SCH ×3 (00:37→21:05)
[2018-04-07] MEDS: ATORVASTATIN CALCIUM 20 MG TABLET PO SCH ×2 (00:37→21:05)
[2018-04-07] MEDS: POTASSIUM CHLORIDE 20 MEQ/15 ML UDCUP PO SCH ×3 (00:38→21:20)
[2018-04-07] MEDS: LACTOBACILLUS ACIDOPHILUS 250 MG TAB PO SCH ×2 (09:13→17:31)
[2018-04-07] MEDS: FUROSEMIDE 20 MG TABLET PO SCH (09:13)
[2018-04-07] MEDS: POLYVINYL ALCOHOL 1.4% OPH SOLN 15 ML OU SCH (09:13)
--- NOTE | 2018-04-07 12:58 | PDOC PROGRESS REPORT ---
Subjective Progress Note for:: 04/07/18 Subjective:: patient has no acute complaints- denies abdominal pain or n/v/d Reason For Visit: COLITIS Physical Exam Vital Signs: Temp Pulse Resp BP Pulse Ox 98.2 F 88 20 142/62 H 100 04/07/18 11:26 04/07/18 11:26 04/07/18 11:26 04/07/18 11:26 04/07/18 11:26 Intake & Output 04/06/18 04/07/18 04/08/18 06:59 06:59 06:59 Intake Total 633 477 237 Output Total 50 Balance 583 477 237 Weight 138 lb 14.259 oz 133 lb 9.602 oz General appearance: PRESENT: no acute distress, thin Head exam: PRESENT: atraumatic, normocephalic Eye exam: PRESENT: EOMI. ABSENT: conjunctival injection, scleral icterus Mouth exam: PRESENT: moist Teeth exam: PRESENT: poor dentation Neck exam: ABSENT: tenderness Respiratory exam: PRESENT: clear to auscultation nick, symmetrical Cardiovascular exam: PRESENT: +S1, +S2 Pulses: PRESENT: +2 pedal pulses bilateral GI/Abdominal exam: PRESENT: normal bowel sounds, soft. ABSENT: tenderness Extremities exam: ABSENT: tenderness, +2 edema Musculoskeletal exam: ABSENT: tenderness Neurological exam: PRESENT: alert, awake, CN II-XII grossly intact Skin exam: PRESENT: dry, warm Results Laboratory Results: 04/06/18 09:25 04/04/18 06:44 04/04/18 23:53 NT-Pro-B Natriuret Pep [id number] H Impressions: Chest X-Ray 04/05/18 00:00 IMPRESSION: Minimal bibasilar atelectasis Assessment & Plan - Diagnosis (1) Clostridium difficile colitis Is this a current diagnosis for this admission?: Yes (2) Debility Is this a current diagnosis for this admission?: Yes (3) A-fib Qualifiers: Atrial fibrillation type: chronic Qualified Code(s): I48.2 - Chronic atrial fibrillation Is this a current diagnosis for this admission?: Yes (4) COPD (chronic obstructive pulmonary disease) Qualifiers: COPD type: unspecified COPD Qualified Code(s): J44.9 - Chronic obstructive pulmonary disease, unspecified Is this a current diagnosis for this admission?: Yes (5) HTN (hypertension) Qualifiers: Hypertension type: essential hypertension Qualified Code(s): I10 - Essential (primary) hypertension Is this a current diagnosis for this admission?: Yes - Plan Summary Plan Summary: Patient doing well today. Continue vancomycin for 3 more days for a total of 10 days to treat his C. difficile. His care will be taken over by his PCP from tomorrow. Most likely he can be discharged tomorrow. I have spoken with nurse about getting him out of bed into chair if possible. I also consulted PT today if he has not had any so far.
[2018-04-07] MEDS: TAMSULOSIN HCL 0.4 MG CAP.SR.24H PO SCH (17:31)
[2018-04-08] MEDS: VANCOMYCIN HCL INJ 500 MG VIAL PO SCH ×4 (02:56→21:29)
[2018-04-08 07:25] LABS: HEMATOCRIT 32.2 % (37.9-51.0); HEMOGLOBIN 11.1 g/dL (13.5-17.0); MEAN CORPUSCULAR HEMOGLOBIN 32.1 pg (27.0-33.4); MEAN CORPUSCULAR HGB CONC 34.5 g/dL (32.0-36.0); MEAN CORPUSCULAR VOLUME 93 fl (80-97); PLATELET COUNT 206 10^3/uL (150-450); RED BLOOD COUNT 3.46 10^6/uL (4.35-5.55); RED CELL DISTRIBUTION WIDTH 16.4 % (11.5-14.0); WHITE BLOOD COUNT 7.1 10^3/uL (4.0-10.5)
--- NOTE | 2018-04-08 08:01 | PDOC PROGRESS REPORT ---
Subjective Progress Note for:: 04/08/18 Subjective:: The patient states to feel better. His daughter is bedside. His is currently sick with C. difficile colitis and cannot manage the patient at home. There is trying to get an emergency healthcare power of contracts attorney so the children can be making the decision instead of the . Again discussed the need for rehab and possibly short-term and eventually placement. The patient has completed 8 days of vancomycin. Reason For Visit: COLITIS Physical Exam Vital Signs: Temp Pulse Resp BP Pulse Ox 98.2 F 87 20 123/55 L 98 04/08/18 07:23 04/08/18 07:23 04/08/18 07:23 04/08/18 07:23 04/08/18 07:23 Intake & Output 04/07/18 04/08/18 04/09/18 06:59 06:59 06:59 Intake Total 477 257 Output Total 0 Balance 477 257 Weight 60.6 kg 59.2 kg General appearance: PRESENT: mild distress Head exam: PRESENT: atraumatic Eye exam: PRESENT: conjunctiva pink Neck exam: PRESENT: carotid bruit. ABSENT: JVD Respiratory exam: PRESENT: crackles. ABSENT: wheezes Cardiovascular exam: PRESENT: irregular rhythm, +S1, +S2 GI/Abdominal exam: PRESENT: normal bowel sounds, soft Extremities exam: PRESENT: tenderness Musculoskeletal exam: PRESENT: tenderness Neurological exam: PRESENT: alert, awake Results Laboratory Results: 04/08/18 07:10 04/08/18 07:10 WBC 7.1 RBC 3.46 L Hgb 11.1 L Hct 32.2 L MCV 93 MCH 32.1 MCHC 34.5 RDW 16.4 H Plt Count 206 04/04/18 23:53 NT-Pro-B Natriuret Pep [id number] H Impressions: Chest X-Ray 04/05/18 00:00 IMPRESSION: Minimal bibasilar atelectasis Assessment & Plan - Diagnosis (1) A-fib Qualifiers: Atrial fibrillation type: chronic Qualified Code(s): I48.2 - Chronic atrial fibrillation Is this a current diagnosis for this admission?: Yes Plan: Continue current medications. Would avoid anticoagulation because of previous GI bleed and severe thrombocytopenia (2) CKD (chronic kidney disease), stage III Is this a current diagnosis for this admission?: Yes Plan: Continue current medication (3) Clostridium difficile colitis Is this a current diagnosis for this admission?: Yes Plan: Continue with vancomycin. The patient's white count has back to normal and there is no more diarrhea or abdominal pain (4) COPD (chronic obstructive pulmonary disease) Qualifiers: COPD type: unspecified COPD Qualified Code(s): J44.9 - Chronic obstructive pulmonary disease, unspecified Is this a current diagnosis for this admission?: Yes (5) DNR (do not resuscitate) Is this a current diagnosis for this admission?: Yes Plan: We will continue DNR. Discussed with the family about placement to a fdc (6) Dementia Qualifiers: Dementia type: unspecified type Dementia behavioral disturbance: without behavioral disturbance Qualified Code(s): F03.90 - Unspecified dementia without behavioral disturbance Is this a current diagnosis for this admission?: Yes Plan: We will continue current treatment. The patient will need rehab and possibly placement
[2018-04-08 08:05] LABS: ANION GAP 7 (5-19); BLOOD UREA NITROGEN 15 mg/dL (7-20); CALCIUM 8.1 mg/dL (8.4-10.2); CARBON DIOXIDE 29 mmol/L (22-30); CHLORIDE 107 mmol/L (98-107); GLUCOSE 93 mg/dL (75-110); POTASSIUM 4.1 mmol/L (3.6-5.0); SODIUM 142.6 mmol/L (137-145)
[2018-04-08] MEDS: METOPROLOL SUCCINATE 25 MG TAB.SR.24H PO SCH ×2 (12:03→21:29)
[2018-04-08] MEDS: FUROSEMIDE 20 MG TABLET PO SCH (12:04)
[2018-04-08] MEDS: LACTOBACILLUS ACIDOPHILUS 250 MG TAB PO SCH ×2 (12:04→19:05)
[2018-04-08] MEDS: POTASSIUM CHLORIDE 20 MEQ/15 ML UDCUP PO SCH ×2 (12:04→21:29)
[2018-04-08] MEDS: POLYVINYL ALCOHOL 1.4% OPH SOLN 15 ML OU SCH (12:05)
[2018-04-08] MEDS: TAMSULOSIN HCL 0.4 MG CAP.SR.24H PO SCH (19:05)
[2018-04-08] MEDS: ATORVASTATIN CALCIUM 20 MG TABLET PO SCH (21:29)
[2018-04-09] MEDS: VANCOMYCIN HCL INJ 500 MG VIAL PO SCH ×3 (02:43→15:30)
[2018-04-09] MEDS: LACTOBACILLUS ACIDOPHILUS 250 MG TAB PO SCH ×2 (10:51→17:06)
[2018-04-09] MEDS: METOPROLOL SUCCINATE 25 MG TAB.SR.24H PO SCH (10:51)
[2018-04-09] MEDS: POLYVINYL ALCOHOL 1.4% OPH SOLN 15 ML OU SCH (10:54)
[2018-04-09] MEDS: POTASSIUM CHLORIDE 20 MEQ/15 ML UDCUP PO SCH (10:54)
--- NOTE | 2018-04-09 12:05 | PDOC TRANSFER SUMMARY ---
General - Admit/Disc Date/PCP Admission Date/Primary Care Provider: 03/31/18 15:31 RAMANDEEP RAMSEY, Discharge Date: 04/09/18 - Discharge Diagnosis (1) A-fib Is this a current diagnosis for this admission?: Yes Summary: Continue current treatment (2) CKD (chronic kidney disease), stage III Is this a current diagnosis for this admission?: Yes Summary: Stable continue diuretics (3) Clostridium difficile colitis Is this a current diagnosis for this admission?: Yes Summary: Improved continue vancomycin 500 mg every 6 hours for 2 more days then DC (4) COPD (chronic obstructive pulmonary disease) Is this a current diagnosis for this admission?: Yes Summary: Stable continue current treatment (5) DNR (do not resuscitate) Is this a current diagnosis for this admission?: Yes Summary: Continue DNR status (6) Dementia Is this a current diagnosis for this admission?: Yes Summary: Continue current medications - Additional Information Resuscitation Status: Do Not Resuscitate Discharge Diet: Cardiac, Diabetic Discharge Activity: Activity As Tolerated Home Medications: Alendronate Sodium [Fosamax "Weekly" 35 mg Tablet] 35 mg PO MO@0800 11/07/17 Atorvastatin Calcium [Lipitor 20 mg Tablet] 20 mg PO QHS 11/07/17 Furosemide [Lasix 40 mg Tablet] 40 mg PO BID 11/07/17 Omeprazole 20 mg PO [id number] 11/07/17 Albuterol Sulfate [Proair HFA Inhalation Aerosol 8.5 gm MDI] 1 puff IH Q6HP PRN 03/05/18 Mirabegron [Myrbetriq] 50 mg PO DAILY 03/05/18 Lisinopril [Prinivil 10 mg Tablet] 5 mg PO Q12 tablet 03/08/18 Metoprolol Succinate [Toprol Xl 25 mg Tab.sr] 25 mg PO Q12 tab.sr.24h 03/08/18 Dextran 70/Hypromellose [Artificial Tears] 1 each OU DAILY 03/31/18 Iron Ps Complex/B12/Folic Acid [Ferrex 150 Forte Capsule] 1 each PO BID Lactobacillus Rhamnosus GG [[employer]] 1 each PO DAILY Potassium Chloride [Kaon-Cl 20 Meq/15 ml Udcup] 40 meq PO DAILY 03/31/18 Vancomycin HCl [Vancocin Inj 500 mg Vial] 500 mg PO Q6A 2 Days vial 04/09/18 History of Present Illness Admission Date/PCP: 03/31/18 15:31 RAMANDEEP RAMSEY, History of Present Illness: STACIA ANNE is a 87 year old male Hospital Course Hospital Course: The patient was admitted because of recurrence of C. difficile colitis. He did quite well after several days of being placed back on vancomycin p.o. His symptoms have improved. The patient appeared to be septic on admission his white count was 35,000. After several days of p.o. vancomycin his symptoms have improved. The diarrhea has resolved. His white count has decreased back to normal. Because of patient's deconditioning it has been discussed with the family members and a recommendation has been made for patient to go back to the rehab. Physical Exam Vital Signs: Temp Pulse Resp BP Pulse Ox 97.3 F 79 20 99/60 L 100 04/09/18 07:03 04/09/18 07:03 04/09/18 07:03 04/09/18 07:03 04/09/18 07:03 Intake & Output 04/08/18 04/09/18 04/10/18 06:59 06:59 06:59 Intake Total 257 574 Output Total 0 Balance 257 574 Weight 59.2 kg 61.1 kg General appearance: PRESENT: no acute distress Head exam: PRESENT: normocephalic, other Respiratory exam: PRESENT: rhonchi Cardiovascular exam: PRESENT: irregular rhythm, +S1, +S2 GI/Abdominal exam: PRESENT: normal bowel sounds, soft Musculoskeletal exam: PRESENT: tenderness Neurological exam: PRESENT: alert, awake Additional comments: Right religious area 2 rocky which were removed Results Laboratory Results: 04/08/18 07:10 04/08/18 07:10 04/04/18 23:53 NT-Pro-B Natriuret Pep [id number] H Impressions: Chest X-Ray 04/05/18 00:00 IMPRESSION: Minimal bibasilar atelectasis Qualifiers - * PATIENT BEING DISCHARGED WITH ANY OF THE FOLLOWING DIAGNOSIS: No
[2018-04-09] MEDS: FUROSEMIDE 20 MG TABLET PO SCH (13:05)
[2018-04-09] MEDS: TAMSULOSIN HCL 0.4 MG CAP.SR.24H PO SCH (17:06)
[2018-04-09 19:49] VITALS: BP 128/70
== END 2018-04-09 19:58 | DRG 372 ==
LOC: ER 12:44 → EH 15:31 → 3N 17:22
PROVIDERS: ADMIT Internal Medicine; ATTEND Internal Medicine
DX: A04.72 Enterocolitis due to Clostridium difficile, not specified as recurrent (principal); I13.0 Hypertensive heart and chronic kidney disease with heart failure and stage 1 through stage 4 chronic kidney disease, or unspecified chronic kidney disease; F03.90 Unspecified dementia, unspecified severity, without behavioral disturbance, psychotic disturbance, mood disturbance, and anxiety; E11.22 Type 2 diabetes mellitus with diabetic chronic kidney disease; N18.3 Chronic kidney disease, stage 3 (moderate); I50.9 Heart failure, unspecified; J44.9 Chronic obstructive pulmonary disease, unspecified; Z66 Do not resuscitate; I48.2 Chronic atrial fibrillation; I25.10 Atherosclerotic heart disease of native coronary artery without angina pectoris; E78.5 Hyperlipidemia, unspecified; M19.90 Unspecified osteoarthritis, unspecified site; M81.0 Age-related osteoporosis without current pathological fracture; Z79.899 Other long term (current) drug therapy; Z87.891 Personal history of nicotine dependence; Z88.8 Allergy status to other drugs, medicaments and biological substances
CPT/HCPCS: 36415; 71045; 80048; 80053; 81001; 82550; 83605; 83735; 83880; 84484; 85025; 85027; 87040; 87045; 87205; 87493; 89055; 96365; 99291; G8978-GP; G8979-GP; J1644; J1940; J3370; J3490; J7030; J7120